=== PATIENT | female | born 1970 | race Hispanic/Latino ===

== ENCOUNTER → 2019-10-08 | Outpatient (CLI) | payer OTHER, SELFPAY ==
[~2019-10-08] MED LIST: FERR325T18 PO; HYDR-3713; IBUP-1022; ONDA4TAB6 PO; PROP10TA56; SUMA25TA3; TRAM50TA2 PO
--- NOTE | 2019-11-05 08:12 | REP ---
CHEST X-RAY: CLINICAL: Cough. TECHNIQUE: PA and lateral FINDINGS: Mediastinum and cardiac silhouette are normal. Lung sage are clear. No consolidation, effusion or pneumothorax. Skeletal structures are intact. IMPRESSION: Normal chest x-ray. No acute cardiopulmonary process. MTDD
== END ==
LOC: M LRY 16:42
PROVIDERS: ATTEND Physician Assistant
DX: R05 Cough (principal); R50.9 Fever, unspecified

== ENCOUNTER → 2019-10-16 | Outpatient (CLI) | payer OTHER ==
[2019-10-16 18:48] LABS: BASO # 0.1 10^3/uL (0.0-0.2); EOS # 0.2 10^3/uL (0.0-0.5); EOS % 2.6 % (0.0-3.0); HEMATOCRIT 29.1 % (36.0-47.0); HEMOGLOBIN 7.9 g/dl (12.0-15.5); LYMPH # 1.5 10^3/uL (1.5-5.0); LYMPH % 24.5 % (24.0-44.0); MEAN CORPUSCULAR HEMOGLOBIN 19.2 pg (27.0-33.0); MEAN CORPUSCULAR HGB CONC 27.1 g/dl (32.0-36.5); MEAN CORPUSCULAR VOLUME 70.8 fl (80.0-96.0); MONO # 0.5 10^3/uL (0.0-0.8); MONO % 7.4 % (0.0-5.0); NEUTROPHILS # 3.9 10^3/uL (1.5-8.5); NEUTROPHILS % 64.3 % (36.0-66.0); PLATELET COUNT, AUTOMATED 305 10^3/uL (150-450); RED BLOOD COUNT 4.11 10^6/uL (4.00-5.40); WHITE BLOOD COUNT 6.1 10^3/uL (4.0-10.0)
[2019-10-16 18:53] LABS: BLOOD UREA NITROGEN 13 MG/DL (7-18); CARBON DIOXIDE LEVEL 22 MEQ/L (21-32); CHLORIDE LEVEL 111 MEQ/L (98-107); CREATININE FOR GFR 0.93 MG/DL (0.55-1.30); GLOMERULAR FILTRATION RATE > 60.0 (>58); GLUCOSE, FASTING 97 MG/DL (70-100); POTASSIUM SERUM 4.5 MEQ/L (3.5-5.1); SODIUM LEVEL 137 MEQ/L (136-145)
[2019-10-18 14:13] LABS: EBV AB TO NUCLEAR ANTIGEN >600.0 U/mL (0.0-17.9); EBV VIRAL CAPSID AG IgG >600.0 U/mL (0.0-17.9); EBV VIRAL CAPSID AG IgM <36.0 U/mL (0.0-35.9)
== END ==
LOC: M WUC 14:25
PROVIDERS: ATTEND Physician Assistant Medical
DX: J02.9 Acute pharyngitis, unspecified (principal)

== ENCOUNTER → 2019-10-17 | Outpatient (REF) | payer OTHER | LOC: M LAB REF 13:15 | PROVIDERS: ATTEND Physician Assistant Medical | DX: R51 Headache (principal) ==

== ENCOUNTER 2019-10-28 14:13 | Observation (INO) | payer OTHER ==
[~2019-10-28] VITALS: Ht 149.9 cm; Wt 62.7 kg
[2019-10-28] VITALS (9 sets, daily range): BP systolic 125–147; BP diastolic 62–81
--- NOTE | 2019-10-28 15:38 | REPVR ---
PROCEDURE INFORMATION: Exam: XR Chest, 2 Views Exam date and time: 10/28/2019 3:27 PM Age: 49 years old Clinical indication: Shortness of breath; Additional info: SOB TECHNIQUE: Imaging protocol: XR of the chest Views: Frontal and lateral upright views. COMPARISON: CR CHEST 2 VIEW 10/08/2019 4:45 PM FINDINGS: Lungs: The lungs are clear bilaterally. The pulmonary vasculature is normal. Pleural space: No pleural effusion. No pneumothorax. Heart/Mediastinum: The heart is normal in size and contour. Mediastinum: Stable. Bones/joints: Stable. IMPRESSION: No acute cardiopulmonary abnormality identified. Electronically signed by: Darin Kebede On 10/28/2019 15:38:13 PM
[2019-10-28 15:47] LABS: BASO # 0.1 10^3/uL (0.0-0.2); BASO % 1.6 % (0.0-1.0); EOS # 0.2 10^3/uL (0.0-0.5); EOS % 3.1 % (0.0-3.0); HEMATOCRIT 26.6 % (36.0-47.0); HEMOGLOBIN 7.3 g/dl (12.0-15.5); LYMPH # 1.8 10^3/uL (1.5-5.0); LYMPH % 36.8 % (24.0-44.0); MEAN CORPUSCULAR HEMOGLOBIN 19.3 pg (27.0-33.0); MEAN CORPUSCULAR HGB CONC 27.4 g/dl (32.0-36.5); MEAN CORPUSCULAR VOLUME 70.4 fl (80.0-96.0); MONO # 0.4 10^3/uL (0.0-0.8); MONO % 8.6 % (0.0-5.0); NEUTROPHILS # 2.4 10^3/uL (1.5-8.5); NEUTROPHILS % 49.7 % (36.0-66.0); PLATELET COUNT, AUTOMATED 248 10^3/uL (150-450); RED BLOOD COUNT 3.78 10^6/uL (4.00-5.40); WHITE BLOOD COUNT 4.9 10^3/uL (4.0-10.0)
[2019-10-28 15:57] LABS: INR 1.06; PROTHROMBIN TIME 14.1 SECONDS (12.5-14.3)
[2019-10-28 16:15] LABS: ALBUMIN 3.9 GM/DL (3.2-5.2); ALT/SGPT 19 U/L (12-78); BILIRUBIN,DIRECT < 0.1 MG/DL (0.0-0.2); BILIRUBIN,TOTAL 0.2 MG/DL (0.2-1.0); BLOOD UREA NITROGEN 9 MG/DL (7-18); CALCIUM LEVEL 8.6 MG/DL (8.5-10.1); CARBON DIOXIDE LEVEL 23 MEQ/L (21-32); CHLORIDE LEVEL 111 MEQ/L (98-107); CK-MB VALUE MASS 1.6 NG/ML (<3.6); CPK CREATINE PHOSPHOKINASE 128 U/L (26-192); CREATININE FOR GFR 0.84 MG/DL (0.55-1.30); FREE T4 0.79 NG/DL (0.76-1.46); GLOMERULAR FILTRATION RATE > 60.0 (>58); GLUCOSE, FASTING 99 MG/DL (70-100); MB/CK RELATIVE INDEX 1.25 (< OR =4); POTASSIUM SERUM 4.2 MEQ/L (3.5-5.1); SODIUM LEVEL 137 MEQ/L (136-145); TOTAL PROTEIN 7.6 GM/DL (6.4-8.2); TROPONIN I < 0.02 NG/ML (< 0.10)
--- NOTE | 2019-10-28 17:30 | HPEPDOC ---
General Date of Admission 10/28/19 Date of Service: Oct 28, 2019 Chief Complaint The patient is a 49-year-old female admitted with a reason for visit of Abnormal Labs. Source: Patient Exam Limitations: No limitations Timing/Duration: Week(s) Severity: Moderate History of Present Illness Patient is 49 years old female with past history of dysmenorrhea, chronic iron deficient anemia presented to the hospital with dizziness and lightheadedness. Patient stated that for past few weeks she has been having lightheadedness and dizziness. For past few days patient developed shortness of breath and fatigue. In ER patient was found to have hemoglobin 7.3, chest x-ray showed no acute cardiopulmonary abnormalities. Of note patient stated that she cannot tolerate prescribed iron pills and she didn't take it. Patient has a long history of dysmenorrhea with heavy bleeding. Stool for occult blood was done ER and was negative. Home Medications Miscellaneous Medications Sumatriptan Succinate (Sumatriptan Succinate) 25 Mg Tablet, (Reported) Allergies Coded Allergies: No Known Allergies (Unverified , 10/28/19) Past Medical History Medical History Dysmenorrhea, anxiety Family History I personally reviewed family history and found not pertinent Social History * Smoker: current smoker Alcohol: occationally Drugs: denies A-FIB/CHADSVASC A-FIB History Current/History of A-Fib/PAF?: No Current PO Anticoag Therapy: No Review of Systems Constitutional: Reports: Malaise; Denies: Chills, Fever Eyes: Denies: Pain, Vision change ENT: Denies: Head Aches Skin: Denies: Rash, Lesions Pulmonary: Reports: Dyspnea Cardiovascular: Denies: Chest Pain Gastrointestinal: Denies: Nausea, Vomiting Genitourinary: Denies: Dysuria Hematologic: Denies: Bruising Endocrine: Denies: Polydipsia, Polyphagia Musculoskeletal: Denies: Neck Pain Neurological: Denies: Weakness, Numbness Psych: Reports: Mood Normal Physical Examination General Exam: Positive: Alert, Cooperative Eye Exam: Positive: PERRLA ENT Exam: Positive: Atraumatic Neck Exam: Positive: Supple; Negative: JVD Chest Exam: Positive: Clear to auscultation Heart Exam: Positive: Rate Normal Telemetry: Positive: No significant arrhythmia Abdomen Exam: Positive: Normal bowel sounds Extremity Exam: Negative: Clubbing, Cyanosis Skin Exam: Positive: Nl turgor and temperature Neuro Exam: Positive: Strength at 5/5 X4 ext, Cranial Nerves 3-12 NL Psych Exam: Positive: Mental status NL, Oriented x 3 Vital Signs hr 80 Laboratory Data Labs 24H Laboratory Tests 2 10/28/19 15:33: Immature Granulocyte % (Auto) 0.2, Neutrophils (%) (Auto) 49.7, Lymphocytes (%) (Auto) 36.8, Monocytes (%) (Auto) 8.6H, Eosinophils (%) (Auto) 3.1H, Basophils (%) (Auto) 1.6H, Neutrophils # (Auto) 2.4, Lymphocytes # (Auto) 1.8, Monocytes # (Auto) 0.4, Eosinophils # (Auto) 0.2, Basophils # (Auto) 0.1, Nucleated Red Blood Cells % (auto) 0.0, Prothrombin Time 14.1H, Prothromb Time International Ratio 1.06, Activated Partial Thromboplast Time 27.0, Anion Gap 3L, Glomerular Filtration Rate > 60.0, Calcium Level 8.6, Total Bilirubin 0.2, Direct Bilirubin < 0.1, Aspartate Amino Transf (AST/SGOT) 19, Alanine Aminotransferase (ALT/SGPT) 19, Alkaline Phosphatase 76, Total Creatine Kinase 128, Creatine Kinase MB 1.6, Creatine Kinase MB Relative Index 1.25, Troponin I < 0.02, Total Protein 7.6, Albumin 3.9, Albumin/Globulin Ratio 1.1L, Thyroid Stimulating Hormone (TSH) 3.960H, Free Thyroxine 0.79 CBC/BMP Laboratory Tests 10/28/19 15:33 Assessment/Plan Patient is 49 years old female with past history of dysmenorrhea, chronic iron deficient anemia presented to the hospital with dizziness and lightheadedness. Patient stated that for past few weeks she has been having lightheadedness and dizziness. For past few days patient developed shortness of breath and fatigue. In ER patient was found to have hemoglobin 7.3, chest x-ray showed no acute cardiopulmonary abnormalities. Of note patient stated that she cannot tolerate prescribed iron pills and she didn't take it. Patient has a long history of d ysmenorrhea with heavy bleeding. Stool for occult blood was done ER and was negative. Problems (1) Acute anemia Status: Acute Problem Text: Most likely secondary to dysmenorrhea 2 units of blood Telemetry Follow-up with ROOM SERVER and electricity trading analyst in the outpatient settings Stool for occult blood H&H every 6 hours Plan / VTE VTE Prophylaxis Ordered?: No VTE Exclusion Pharmacological: Active Bleeding STEPHANE MARIE DO Oct 28, 2019 17:30
[2019-10-28 18:50] LABS: IRON (FE) 11 UG/DL (50-170); PERCENT SATURATION 2.3 % (13.2-45.0); TOTAL IRON BINDING CAPACITY 483 UG/DL (250-450)
--- NOTE | 2019-10-28 20:33 | ECGEPIP ---
[facility] - ED Test Date: 2019-10-28 Pat Name: ANTONIO ALEXANDRA Department: Room: - Gender: Female Feller Hand: noelle norwood : 1970 Requested By: MARIANO Moon Order Number: [id number] Reading MD: Yazmin Lomax Measurements Intervals [place] Rate: 70 P: 10 AL: 128 QRS: 15 QRSD: 93 T: 51 QT: 418 QTc: 452 Interpretive Statements SINUS RHYTHM NO PRIOR Electronically Signed on 10-28-2019 20:33:29 EDT by Yazmin Lomax
[2019-10-28] MEDS ORDERED: HEPARIN SOD (PORCINE) 5000UNITS/ML 1ML VIAL/SYRINGE SC SCH (21:00)
[2019-10-28] MEDS: ACETAMINOPHEN TAB 650MG DOSE (2X325MG) PO PRN (22:47)
[2019-10-28 23:51] LABS: HEMATOCRIT 34.3 % (36.0-47.0)
[2019-10-28 23:52] LABS: HEMOGLOBIN 10.2 g/dl (12.0-15.5)
[2019-10-29] MEDS: ACETAMINOPHEN TAB 650MG DOSE (2X325MG) PO PRN ×3 (04:55→22:39)
[2019-10-29 06:00] VITALS: BP 138/76
[2019-10-29 06:03] LABS: HEMATOCRIT 34.2 % (36.0-47.0); HEMOGLOBIN 10.1 g/dl (12.0-15.5); MEAN CORPUSCULAR HEMOGLOBIN 22.1 pg (27.0-33.0); MEAN CORPUSCULAR HGB CONC 29.5 g/dl (32.0-36.5); PLATELET COUNT, AUTOMATED 207 10^3/uL (150-450); RED BLOOD COUNT 4.56 10^6/uL (4.00-5.40); WHITE BLOOD COUNT 5.2 10^3/uL (4.0-10.0)
[2019-10-29 06:23] LABS: BLOOD UREA NITROGEN 10 MG/DL (7-18); CARBON DIOXIDE LEVEL 22 MEQ/L (21-32); CHLORIDE LEVEL 112 MEQ/L (98-107); CREATININE FOR GFR 0.94 MG/DL (0.55-1.30); GLOMERULAR FILTRATION RATE > 60.0 (>58); GLUCOSE, FASTING 99 MG/DL (70-100); MAGNESIUM LEVEL 1.9 MG/DL (1.8-2.4); POTASSIUM SERUM 4.1 MEQ/L (3.5-5.1); SODIUM LEVEL 140 MEQ/L (136-145)
[2019-10-29 08:36] LABS: HEPATITIS C VIRUS ABY INDEX 0.1 INDEX (<0.8)
[2019-10-29] MEDS: FERROUS SULFATE 325MG TAB PO SCH (09:00)
[2019-10-29 09:11] LABS: HEMOGLOBIN 9.9 g/dl (12.0-15.5); MEAN CORPUSCULAR HEMOGLOBIN 22.4 pg (27.0-33.0); MEAN CORPUSCULAR VOLUME 74.8 fl (80.0-96.0); PLATELET COUNT, AUTOMATED 211 10^3/uL (150-450); RED BLOOD COUNT 4.41 10^6/uL (4.00-5.40); WHITE BLOOD COUNT 4.6 10^3/uL (4.0-10.0)
[2019-10-29 14:00] VITALS: BP 143/73
[2019-10-29 14:24] LABS: HEMATOCRIT 31.4 % (36.0-47.0); HEMOGLOBIN 9.4 g/dl (12.0-15.5); MEAN CORPUSCULAR HEMOGLOBIN 22.2 pg (27.0-33.0); MEAN CORPUSCULAR HGB CONC 29.9 g/dl (32.0-36.5); MEAN CORPUSCULAR VOLUME 74.1 fl (80.0-96.0); PLATELET COUNT, AUTOMATED 204 10^3/uL (150-450); RED BLOOD COUNT 4.24 10^6/uL (4.00-5.40)
--- NOTE | 2019-10-29 14:37 | IPNPDOC ---
Text Note Date of Service The patient was seen on 10/29/19. NOTE Subjective Patient seen and examined today. No overnight events. Uterine bleeding almost stopped now. Feeling better overall. denies SOB or CP. Objective Constitutional: Awake and alert, in no apparent distress ENT: Sclera are clear. Mucosa is moist. Respiratory: Lungs CTA bilaterally. No respiratory distress. No use of accessory muscles. Cardiovascular: RRR S1 and S2 are normal, no murmur Gastrointestinal: Abdomen is soft, non distended, non tender, BS present. Musculoskeletal: No edema. No joint deformities. RUE 5/5, LUE 5/5, BLE 5/5 Neurologic: No focal neurological deficit. Mental Status: A&O x3, normal affect Skin: Warm, dry A/P Patient is 49 years old female with past history of dysmenorrhea, chronic iron deficient anemia presented to the hospital with dizziness and lightheadedness. Patient stated that for past few weeks she has been having lightheadedness and dizziness. For past few days patient developed shortness of breath and fatigue. In ER patient was found to have hemoglobin 7.3, chest x-ray showed no acute cardiopulmonary abnormalities. Of note patient stated that she cannot tolerate prescribed iron pills and she didn't take it. Patient has a long history of dysmenorrhea with heavy bleeding. Stool for occult blood was done ER and was negative. # microcytic anemia: - Likely 2/2 dysmenorrhea - Iron PO on d/c - OP follow up with NUTRIENT MANAGEMENT SPECIALIST and GI. - s/p 2U pRBC. Hgb stable 10.1 this AM. 1 more HH prior to DC. - No active bleeding - FOBT ordered. No melena/hematochezia. - If hgb remains stable, can be DC tomorrow with OP NUTRIENT MANAGEMENT SPECIALIST f/u VS,Fishbone, I+O VS, Fishbone, I+O Laboratory Tests 10/28/19 15:33 10/28/19 23:43 10/29/19 05:46 Vital Signs Date Time Temp Pulse Resp B/P (MAP) Pulse Ox O2 Delivery O2 Flow Rate FiO2 10/29/19 06:00 98.4 61 18 138/76 (96) 100 Room Air I&O- Last 24 Hours up to 6 AM 10/29/19 06:00 Intake Total 1880 ml Output Total 430 ml Balance 1450 ml ELIESER SELF MD Oct 29, 2019 08:21
[2019-10-29 20:16] LABS: HEMATOCRIT 34.5 % (36.0-47.0); HEMOGLOBIN 10.2 g/dl (12.0-15.5); MEAN CORPUSCULAR HGB CONC 29.6 g/dl (32.0-36.5); MEAN CORPUSCULAR VOLUME 74.5 fl (80.0-96.0); PLATELET COUNT, AUTOMATED 217 10^3/uL (150-450); RED BLOOD COUNT 4.63 10^6/uL (4.00-5.40); WHITE BLOOD COUNT 4.5 10^3/uL (4.0-10.0)
[2019-10-29 22:00] VITALS: BP 143/63
[2019-10-30 06:00] VITALS: BP 123/72
[2019-10-30 06:18] LABS: HEMATOCRIT 32.5 % (36.0-47.0); HEMOGLOBIN 9.6 g/dl (12.0-15.5); MEAN CORPUSCULAR HEMOGLOBIN 21.9 pg (27.0-33.0); MEAN CORPUSCULAR HGB CONC 29.5 g/dl (32.0-36.5); MEAN CORPUSCULAR VOLUME 74.2 fl (80.0-96.0); PLATELET COUNT, AUTOMATED 208 10^3/uL (150-450); RED BLOOD COUNT 4.38 10^6/uL (4.00-5.40); WHITE BLOOD COUNT 5.1 10^3/uL (4.0-10.0)
[2019-10-30] MEDS ORDERED: FERR325T18 PO (08:15)
[2019-10-30] MEDS: FERROUS SULFATE 325MG TAB PO SCH (08:52)
[2019-10-30] MEDS: ACETAMINOPHEN TAB 650MG DOSE (2X325MG) PO PRN (08:53)
--- NOTE | 2019-10-30 12:39 | IPNPDOC ---
Text Note Date of Service The patient was seen on 10/30/19. NOTE Subjective Patient seen and examined today. No overnight events. vaginal bleeding almost stopped now. Feeling better overall. denies SOB or CP. Objective Constitutional: Awake and alert, in no apparent distress ENT: Sclera are clear. Mucosa is moist. Respiratory: Lungs CTA bilaterally. No respiratory distress. No use of accessory muscles. Cardiovascular: RRR S1 and S2 are normal, no murmur Gastrointestinal: Abdomen is soft, non distended, non tender, BS present. Musculoskeletal: No edema. No joint deformities. RUE 5/5, LUE 5/5, BLE 5/5 Neurologic: No focal neurological deficit. Mental Status: A&O x3, normal affect Skin: Warm, dry A/P Patient is 49 years old female with past history of dysmenorrhea, chronic iron deficient anemia presented to the hospital with dizziness and lightheadedness. Patient stated that for past few weeks she has been having lightheadedness and dizziness. For past few days patient developed shortness of breath and fatigue. In ER patient was found to have hemoglobin 7.3, chest x-ray showed no acute cardiopulmonary abnormalities. Of note patient stated that she cannot tolerate prescribed iron pills and she didn't take it. Patient has a long history of dysmenorrhea with heavy bleeding. Stool for occult blood was done ER and was negative. # microcytic anemia: - Likely 2/2 dysmenorrhea - Iron PO on DC - s/p 2U pRBC. Hgb stable this AM. HH trended. - No active bleeding anywhere other than light vaginal spotting currently - Stool occult negative in ED - DC to home today with OP PCP and UTILITY TECH followup. A Edda Hospitalist Barbie PATEL, I+O Barbie PATEL I+O Laboratory Tests 10/29/19 08:48 10/29/19 14:09 10/29/19 20:05 10/30/19 05:58 Vital Signs Date Time Temp Pulse Resp B/P (MAP) Pulse Ox O2 Delivery O2 Flow Rate FiO2 10/30/19 06:00 98.1 56 17 123/72 (89) 99 Room Air I&O- Last 24 Hours up to 6 AM 10/30/19 06:00 Intake Total 1855 ml Output Total 300 ml Balance 1555 ml ELIESER SELF MD Oct 30, 2019 08:19
[2019-11-21] MEDS ORDERED: SUMA25TA3 (11:40)
== END 2019-10-30 13:01 | disposition home or self-care (01) ==
LOC: M ED 14:13 → M ED INP 14:14 → M MSPAV 18:43
PROVIDERS: ADMIT Internal Medicine; ATTEND Family Medicine
DX: D62 Acute posthemorrhagic anemia (principal); N92.1 Excessive and frequent menstruation with irregular cycle; R42 Dizziness and giddiness; D50.9 Iron deficiency anemia, unspecified; R06.02 Shortness of breath; F41.9 Anxiety disorder, unspecified; F17.218 Nicotine dependence, cigarettes, with other nicotine-induced disorders; R53.83 Other fatigue; Z79.899 Other long term (current) drug therapy
CPT/HCPCS: 36415; 36430; 71046; 80048; 80076; 82550; 82553; 83550; 83735; 84439; 84443; 84484; 85014; 85018; 85025; 85027; 85610; 85730; 86803; 86850; 86900; 86901; 86920; 93005; 93041; 94760; 97161; 97165; 99285; P9016

== ENCOUNTER → 2019-10-31 | Outpatient (CLI) | payer OTHER ==
--- NOTE | 2019-11-07 07:08 | REP ---
PELVIC ULTRASOUND CLINICAL: Leiomyomatous changes and abnormal menstrual cycles. TECHNIQUE: Transabdominal pelvic ultrasound followed by transvaginal examination for better evaluation of the endometrium and adnexa with color Doppler evaluation of the ovaries. FINDINGS: Bladder is normal and measures 4.2 x 3.5 x 2.9 cm. A heterogeneous anteverted myomatous uterus is identified measuring 11.9 x 7.1 x 10.3 cm. The endometrial complex is thickened to 18 mm. Multiple complex fibroids are appreciated including at least three that appear submucosal. The largest submucosal posterior fibroid measures 4.5 x 3.7 x 4.5 cm. An endometrial lesion versus a fundal submucosal fibroid is also identified measuring 1.4 x 1.1 x 1.1 cm. Smaller scattered fibroids are noted. The bilateral ovaries are limited in evaluation due to overlying bowel gas on both transabdominal and transvaginal imaging. Right ovary measures 3.9 x 3.8 x 3.0 cm and demonstrates vascularity without torsion. The left ovary measures 3.8 x 2.6 x 3.2 cm and demonstrates vascularity without torsion. No pelvic fluid or adnexal mass lesion. IMPRESSION: Enlarged myomatous uterus including multiple submucosal fibroids, as well as a subserosal fibroid measuring 3.3 x 2.6 x 2.5 cm. MTDD
== END ==
LOC: M RAD 11:56
PROVIDERS: ATTEND Obstetrics & Gynecology
DX: D25.1 Intramural leiomyoma of uterus (principal); N92.1 Excessive and frequent menstruation with irregular cycle; D25.0 Submucous leiomyoma of uterus; D25.2 Subserosal leiomyoma of uterus

== ENCOUNTER → 2019-11-23 | Outpatient (CLI) | payer OTHER | LOC: M LABSMTC 08:40 | PROVIDERS: ATTEND Anesthesiology | DX: Z01.812 Encounter for preprocedural laboratory examination (principal); Z20.828 Contact with and (suspected) exposure to other viral communicable diseases | CPT/HCPCS: C9803; U0003 ==

== ENCOUNTER 2019-11-28 06:02 | Day surgery (SDC) | payer OTHER ==
[~2019-11-28] VITALS: Ht 149.9 cm; Wt 63.7 kg
[~2019-11-28 06:02] MED LIST changes: -HYDR-3713; -IBUP-1022; -ONDA4TAB6 PO; -PROP10TA56; -TRAM50TA2 PO
[2019-11-28 06:39] LABS: HEMATOCRIT 31.3 % (36.0-47.0); HEMOGLOBIN 9.4 g/dl (12.0-15.5); MEAN CORPUSCULAR VOLUME 76.5 fl (80.0-96.0); PLATELET COUNT, AUTOMATED 296 10^3/uL (150-450); RED BLOOD COUNT 4.09 10^6/uL (4.00-5.40); WHITE BLOOD COUNT 7.6 10^3/uL (4.0-10.0)
[2019-11-28] MEDS ORDERED: LR 1,000 ML IV ONE (07:00)
[2019-11-28] MEDS ORDERED: ceFAZolin SOD 2 GM in IV 1 EA IV ONE (07:00)
[2019-11-28] MEDS ORDERED: METHYLENE BLUE 0.5% (5MG/ML) 10 ML AMP (PROVAYBLUE) As Ordered ONE (07:11)
[2019-11-28] MEDS ORDERED: SCOPOLAMINE 1MG TRANSDERMAL PATCH As Ordered ONE (07:13)
[2019-11-28] MEDS ORDERED: LIDOCAINE 2% 100MG/5ML SDV (FOR ANES.) As Ordered ONE (07:14)
[2019-11-28] MEDS ORDERED: fentaNYL 250 MCG/5 ML INJECTION (J3010) As Ordered ONE (07:14)
[2019-11-28] MEDS ORDERED: propofoL 200 MG/20 ML VIAL As Ordered ONE (07:14)
[2019-11-28] MEDS ORDERED: ROCURONIUM BROMIDE 50 MG/5 ML VIAL As Ordered ONE ×2 (07:14→08:46)
[2019-11-28] MEDS ORDERED: MIDAZOLAM INJ 2MG/2ML VIAL (J2250 PER 1MG) As Ordered ONE (07:15)
[2019-11-28] MEDS ORDERED: SCOPOLAMINE 1MG TRANSDERMAL PATCH TOP ONE (07:30)
[2019-11-28] MEDS ORDERED: LACRILUBE (AKWA TEARS) OPHTH OINT 3.5 GM As Ordered ONE (07:55)
[2019-11-28] MEDS ORDERED: ALBUTEROL 6.7GM INHALER **FOR ANES. CART/OMNICELL ONLY As Ordered ONE (08:11)
[2019-11-28] MEDS ORDERED: ePHEDrine SULFATE 25 MG/5 ML(5MG/ML) SYRINGE As Ordered ONE (08:33)
[2019-11-28] MEDS ORDERED: dexameTHASONE 4 MG/ML 1ML VIAL (J1100 PER 1MG) As Ordered ONE (08:36)
[2019-11-28] MEDS ORDERED: KETOROLAC 60MG 2ML VIAL As Ordered ONE (08:36)
[2019-11-28] MEDS ORDERED: ONDANSETRON 4MG/2ML VIAL As Ordered ONE ×3 (08:36→10:52)
[2019-11-28] MEDS ORDERED: SUGAMMADEX SODIUM 500 MG/5 ML VIAL (BRIDION) As Ordered ONE (08:38)
[2019-11-28] MEDS ORDERED: ACETAMINOPHEN 1000MG 100ML IV BTL (OFIRMEV) (J0131 PER 10MG) As Ordered ONE (08:44)
[2019-11-28] MEDS ORDERED: METOCLOPRAMIDE INJ 10MG/2ML VIAL (J2765 PER 1) As Ordered ONE (09:55)
[2019-11-28] MEDS ORDERED: HYDROmorphone HCL 2 MG/ML 1ML VIAL (J1170) As Ordered ONE (09:58)
[2019-11-28] MEDS ORDERED: fentaNYL 100 MCG/2 ML INJECTION (J3010) As Ordered ONE (10:50)
[2019-11-28] MEDS: fentaNYL 100 MCG/2 ML INJECTION (J3010) IV PRN ×4 (10:55→11:16)
[2019-11-28] MEDS ORDERED: MORPHINE 1MG/ML IN 0.9% NACL 100ML IV BAG As Ordered ONE (10:55)
[2019-11-28] MEDS ORDERED: ONDANSETRON 4MG/2ML VIAL IV PRN (11:00)
[2019-11-28] MEDS ORDERED: LR 1,000 ML IV SCH (11:00)
[2019-11-28] MEDS ORDERED: MEPERIDINE INJ 25 MG/ML VIAL (J2175) IV PRN (11:00)
[2019-11-28] MEDS ORDERED: oxyCODONE 5MG TAB PO PRN (11:00)
[2019-11-28] MEDS ORDERED: METOCLOPRAMIDE INJ 10MG/2ML VIAL (J2765 PER 1) IV PRN (11:00)
[2019-11-28] MEDS ORDERED: IBUPROFEN 600MG TAB PO PRN (11:15)
[2019-11-28] MEDS ORDERED: diphenhydrAMINE 50MG/ML VIAL (J1200) IV PRN (11:15)
[2019-11-28] MEDS ORDERED: NALOXONE INJ 0.4MG/1ML VIAL (J2310 PER 1MG) IV PRN (11:15)
[2019-11-28] MEDS ORDERED: NALBUPHINE HCL 10 MG/ML AMP (J2300) IV PRN (11:15)
[2019-11-28] MEDS ORDERED: EPIDURAL/PCA KEYS XX PRN (11:15)
[2019-11-28] MEDS ORDERED: NS 1,000 ML IV SCH (11:15)
[2019-11-28] MEDS ORDERED: MORPHINE 1MG/ML IN 0.9% NACL 100ML IV BAG IV PRN (11:15)
[2019-11-28] MEDS: LR 1,000 ML IV SCH ×2 (12:48→23:51)
[2019-11-28 13:00] VITALS: BP 109/70
[2019-11-28 13:30] VITALS: BP 110/69
--- NOTE | 2019-11-28 13:46 | RO ---
DATE OF OPERATION: 11/28/2019 PREOPERATIVE DIAGNOSIS/INDICATION FOR SURGERY: Pain, bleeding, fibroids. POSTOPERATIVE DIAGNOSIS: Pain, bleeding, fibroids, right hydroureter which was present before we even started cutting anything. PROCEDURE: Robotic-assisted hysterectomy, bilateral salpingo-oophorectomy of uterus over 250 gm (uterus was 354 gm weighed in the OR); cystourethroscopy done because of the right hydroureter abnormal finding which changed the plan. SURGEON: Linn Leroy MD [employer]CRA[employer] INSTALLER: Mariela Skelton ANESTHESIA: General endotracheal anesthesia. BRIEF DESCRIPTION OF PROCEDURE AND FINDINGS: Heidi was brought to the operating room where sufficient general endotracheal anesthesia was induced. She was prepped, draped and positioned in the usual sterile fashion with a Miranda with the ability to back fill placed and the uterine manipulator placed after the uterus was sounded to 14. We secured the manipulator in place with sutures as is typical in the robotic cases. Attention was turned to the umbilicus where transverse incision was made over her previous umbilical scar. Sharp and blunt dissection was continued to the level of the rectus fascia which was transversely incised, secured with #0 Vicryl retention sutures and peritoneum entered under direct visualization and Romie cannula placed, again under direct visualization. Attention was turned to the pelvis. With some Trendelenburg and photographs were taken of the enlarged fibroid uterus which is documented in the operative photos. There were also some minor adhesions but in addition prior to starting any work other than simple identification, right hydroureter was noted with tortuous course of the ureter, as it approached the uterine vasculature it turned back upon itself in almost [id number] curve, was of course also distended and expectation is that this is due to the fibroids themselves but of course this atypical finding resulted in us changing the plan and adding cystourethroscopy to make sure that ureter did well. We did take some photos at the end of the case that showed that actually once the uterus was out of the way the ureter had much straighter course. At this point of course we did not have that finding. There were also some minor adhesions of the intestine and some scarring from the patients previous surgery. She is missing the midportion of the left tube entirely, missing the fimbria on the right from pre this operative surgery. Two left-sided, one right-sided additional ports were placed and the robot was docked. The patient was in fairly steep Trendelenburg position to facilitate access to the pelvis and then working from the console we freed the adhesions of the intestine near the left infundibulopelvic ligament, found the fimbria curled back beyond this under those adhesions although the midportion of that tube was of course absent. We freed up the fimbria, kept it with the ovary and after using just cold dissection with the scissors to free the bowel away from the field of this dissection we were able to readily see that the ureter on the left side was also very close here but we were able after freeing those adhesions to get the infundibulopelvic ligament away and safely use bipolar cautery to cauterize and then carefully transect the infundibulopelvic ligament, working through the broad ligament toward the round. We carefully freed the dissection. There were some additional vascular supply over typical consistent with fibroids but this additional recruited supply was readily controlled with just careful but somewhat tedious dissection. We were thus able to keep the field of dissection as far away from that ureter as possible while still taking the tissues that needed to be excised. We then continued that dissection through the broad, back toward the uterus and then toward the round and then were able to also cauterize and transect the round ligament and then bring down the anterior leaflet of the broad and come with cold scissor dissection across the front of the uterus. We back-filled the bladder to confirm its location using the Miranda and then turned our attention to the patients right side where that ureter was so much closer to the uterus itself. Initially we had some similar adhesions to take down and brought down the peritoneum of the broad ligament there to get that ureter more medial and away from the infundibulopelvic ligament on the right side as well. We then carefully cauterized this, transected it and worked our way through the broad ligament toward the round again being careful to bring down the peritoneal layer and let that ureter fall away. Again, it was larger and more tortuous than is typical which is very likely simply a result of the fibroid uterus itself. Having freed the ovary and carefully transected the round ligament, came down that posteriorly of the broad and worked our way superficially just over the insertion of the uterocervical ligament on the right side so that we could stay away from that ureter again. We had completed the dissection of the bladder flap anteriorly and went ahead and made sure that we did that posterior dissection to get the ureter as far away as possible before we cauterized any of those vessels. With that dissection done we went ahead and cauterized the uterines on the right and left them intact so that we could go back to the left side, did similar dissection freeing the tissues and dissecting on the cervix just above the insertion of the uterosacral so that we left those attachments in place and of course to stay as far away as possible from the ureters. There was quite a bit of additional recruited blood supply as would be expected with such a large fibroid uterus so we took our time to this dissection controlling that blood supply and then transecting it and then carefully making the anterior colpotomy, bringing that around to joint with the dissection that we had already done posteriorly using cold scissors along the right lateral side after we had controlled those vessels so that we were not using monopolar near that ureter at all. We then, having freed the cervix, delivered the uterus through the vagina. I had to scrub back in so that I could do that work because the uterus was quite large and there was some manipulation necessary to remove it. It was removed intact. Again, weight in the room 354 gm. I then went back to the robot and used V-Loc suture running stitch to close the cuff and re-support the angles and again taking care to avoid injury to the bladder or ureters. There was methylene blue given, no evidence of leakage of methylene blue into the pelvis or the abdomen. After closing the cuff and disconnecting the robot, we removed the patient from Trendelenburg, did cystourethroscopy and were able to see normal jets of urine from both ureters and absence of any evidence of injury to the bladder or urethra. Subsequently then closed those abdominal wounds, umbilical wound deep closure of #0 Vicryl and then 3-0 Vicryl at the skin of all four wounds. Dry, sterile dressings were applied. ESTIMATED BLOOD LOSS: About 50 mL. FLUID REPLACEMENT: Crystalloid. COMPLICATIONS: None. CONDITION AND DISPOSITION: Heidi tolerated the procedure well and was recovering in the recovery room in good condition. JADIEL
[2019-11-28 14:30] VITALS: BP 117/63
[2019-11-28 16:30] VITALS: BP 118/64
[2019-11-28 17:30] VITALS: BP 118/64
[2019-11-28] MEDS ORDERED: SUMAtriptan SUCCINATE 25 MG TAB PO PRN (18:30)
[2019-11-28 19:27] VITALS: BP 103/51
[2019-11-28] MEDS: ACETAMINOPHEN TAB 650MG DOSE (2X325MG) PO PRN ×2 (19:40→23:52)
[2019-11-29 00:56] VITALS: BP 115/56
[2019-11-29] MEDS: LR 1,000 ML IV SCH (03:15)
[2019-11-29] MEDS ORDERED: NORCO, ANEXSIA 5/325MG TABLET (HYDROcodone/ACETAMINOPHEN) PO PRN (06:00)
[2019-11-29 06:15] LABS: HEMOGLOBIN 8.2 g/dl (12.0-15.5); MEAN CORPUSCULAR HEMOGLOBIN 23.6 pg (27.0-33.0); MEAN CORPUSCULAR HGB CONC 30.4 g/dl (32.0-36.5); MEAN CORPUSCULAR VOLUME 77.6 fl (80.0-96.0); PLATELET COUNT, AUTOMATED 259 10^3/uL (150-450); RED BLOOD COUNT 3.48 10^6/uL (4.00-5.40); WHITE BLOOD COUNT 14.8 10^3/uL (4.0-10.0)
[2019-11-29 06:21] VITALS: BP 119/58
== END 2019-11-29 10:30 | disposition home or self-care (01) ==
LOC: M SDC 06:02 → M MS5PR 12:15 → M SDC 11-29 10:30
PROVIDERS: ATTEND Obstetrics & Gynecology
DX: R10.2 Pelvic and perineal pain (principal); N93.9 Abnormal uterine and vaginal bleeding, unspecified; D25.9 Leiomyoma of uterus, unspecified; D64.9 Anemia, unspecified; G43.909 Migraine, unspecified, not intractable, without status migrainosus; F41.9 Anxiety disorder, unspecified; F17.218 Nicotine dependence, cigarettes, with other nicotine-induced disorders; Z79.899 Other long term (current) drug therapy
CPT/HCPCS: 36415; 58573; 81025; 85027; 86850; 86900; 86901; 88307; J0131; J0690; J1100; J1170; J1885; J2250; J2405; J2765; J3010; Q9968; S2900

== ENCOUNTER 2019-12-04 20:05 | Emergency (ER) | payer OTHER ==
[~2019-12-04] VITALS: Ht 149.9 cm; Wt 62.7 kg
[~2019-12-04 20:05] MED LIST changes: -HYDR-3713; -IBUP-1022; -ONDA4TAB6 PO; -PROP10TA56; -TRAM50TA2 PO
[2019-12-04] MEDS ORDERED: HYDR-3713 (20:21)
[2019-12-04] MEDS ORDERED: IBUP-1022 (20:21)
[2019-12-04] MEDS ORDERED: PROP10TA56 (20:21)
[2019-12-04] MEDS ORDERED: NS 1,000 ML IV ONE (20:45)
[2019-12-04] MEDS ORDERED: ONDANSETRON 4MG/2ML VIAL IV ONE (20:45)
[2019-12-04] MEDS ORDERED: traMADol 50 MG TAB PO ONE (20:45)
[2019-12-04 21:08] LABS: BASO % 0.5 % (0.0-1.0); EOS # 0.3 10^3/uL (0.0-0.5); EOS % 3.8 % (0.0-3.0); HEMOGLOBIN 8.6 g/dl (12.0-15.5); LYMPH # 1.6 10^3/uL (1.5-5.0); LYMPH % 22.1 % (24.0-44.0); MEAN CORPUSCULAR HEMOGLOBIN 22.9 pg (27.0-33.0); MEAN CORPUSCULAR HGB CONC 29.7 g/dl (32.0-36.5); MEAN CORPUSCULAR VOLUME 77.1 fl (80.0-96.0); MONO # 0.7 10^3/uL (0.0-0.8); MONO % 9.2 % (0.0-5.0); NEUTROPHILS # 4.7 10^3/uL (1.5-8.5); NEUTROPHILS % 64.1 % (36.0-66.0); PLATELET COUNT, AUTOMATED 254 10^3/uL (150-450); RED BLOOD COUNT 3.76 10^6/uL (4.00-5.40); WHITE BLOOD COUNT 7.4 10^3/uL (4.0-10.0)
--- NOTE | 2019-12-04 21:18 | REPVR ---
PROCEDURE INFORMATION: Exam: XR Complete Acute Abdomen Series Exam date and time: 12/04/2019 9:04 PM Age: 49 years old Clinical indication: Other: Nv post hysterectomy; Additional info: Nv, post hysterectomy TECHNIQUE: Imaging protocol: XR complete acute abdomen series, including 2 or more views of the abdomen and a single view chest. COMPARISON: CR Chest, 2 view PA, Lat 10/28/2019 3:18 PM FINDINGS: Lungs: Normal. No consolidation. Pleural space: Normal. No pneumothorax. Heart/Mediastinum: Normal. No cardiomegaly. Gastrointestinal tract: Mild gas in the GI tract which is primarily colonic without abnormal dilatation. Mild stool is noted in the ascending and transverse colon. No abnormal air-fluid levels. Intraperitoneal space: No free air. Bones/joints: Normal. No acute fracture. Soft tissues: Normal. IMPRESSION: 1. Negative chest without change from 10/28/2019. 2. Negative abdomen with mild gas which is within normal limits. Electronically signed by: Jordy Luz On 12/04/2019 21:17:54 PM
[2019-12-04 21:36] LABS: ALBUMIN 3.5 GM/DL (3.2-5.2); BILIRUBIN,DIRECT 0.2 MG/DL (0.0-0.2); BILIRUBIN,TOTAL 0.6 MG/DL (0.2-1.0); TOTAL PROTEIN 6.8 GM/DL (6.4-8.2)
[2019-12-04] MEDS ORDERED: TRAM50TA2 PO (22:00)
[2019-12-04] MEDS ORDERED: ONDA4TAB6 PO (22:00)
[2019-12-04 22:11] VITALS: BP 161/73
== END 2019-12-04 22:20 | disposition home or self-care (01) ==
LOC: M ED 20:05
DX: G89.18 Other acute postprocedural pain (principal); R11.2 Nausea with vomiting, unspecified; D50.9 Iron deficiency anemia, unspecified; R51.9 Headache, unspecified; Z90.710 Acquired absence of both cervix and uterus; F17.200 Nicotine dependence, unspecified, uncomplicated; Z79.899 Other long term (current) drug therapy
CPT/HCPCS: 36415; 74021; 80047; 80076; 81001; 82728; 83550; 83690; 85025; 96361; 96375; 99283; J2405

== ENCOUNTER → 2019-12-04 | Outpatient (CLI) | payer OTHER ==
[~2019-12-04] MED LIST changes: +HYDR-3713; +IBUP-1022; +ONDA4TAB6 PO; +PROP10TA56; +TRAM50TA2 PO
[2019-12-04 19:55] LABS: BASO % 0.4 % (0.0-1.0); EOS # 0.2 10^3/uL (0.0-0.5); EOS % 3.1 % (0.0-3.0); HEMATOCRIT 29.7 % (36.0-47.0); HEMOGLOBIN 8.7 g/dl (12.0-15.5); LYMPH # 1.4 10^3/uL (1.5-5.0); LYMPH % 19.5 % (24.0-44.0); MEAN CORPUSCULAR HEMOGLOBIN 22.8 pg (27.0-33.0); MEAN CORPUSCULAR HGB CONC 29.3 g/dl (32.0-36.5); MONO # 0.7 10^3/uL (0.0-0.8); MONO % 9.4 % (0.0-5.0); NEUTROPHILS # 4.8 10^3/uL (1.5-8.5); NEUTROPHILS % 67.3 % (36.0-66.0); PLATELET COUNT, AUTOMATED 274 10^3/uL (150-450); RED BLOOD COUNT 3.81 10^6/uL (4.00-5.40); WHITE BLOOD COUNT 7.1 10^3/uL (4.0-10.0)
[2019-12-04 20:03] LABS: PERCENT SATURATION 5.3 % (13.2-45.0)
== END ==
LOC: M WUC 16:26
PROVIDERS: ATTEND Physician Assistant Medical
DX: D50.9 Iron deficiency anemia, unspecified (principal)

== ENCOUNTER → 2020-02-14 | Outpatient (REF) | payer OTHER ==
[~2020-02-14] MED LIST changes: +HYDR-3713; +IBUP-1022; +ONDA4TAB6 PO; +PROP10TA56; +TRAM50TA2 PO
[2020-02-14 17:24] LABS: APPEARANCE, URINE CLOUDY (CLEAR); BACTERIA, URINE AUTO NEGATIVE (NEGATIVE); BILIRUBIN, URINE AUTO NEGATIVE (NEGATIVE); BLOOD, URINE BLOOD 2+ (NEGATIVE); COLOR, URINE YELLOW (YELLOW); GLUCOSE, URINE (UA) AUTO NEGATIVE (NEGATIVE); KETONE, URINE AUTO NEGATIVE (NEGATIVE); LEUKOCYTE ESTERASE, URINE AUTO 1+ (NEGATIVE); NITRITE, URINE AUTO NEGATIVE (NEGATIVE); PROTEIN, URINE AUTO NEGATIVE (NEGATIVE); RBC, URINE AUTO 0 /HPF (0-3); SPECIFIC GRAVITY URINE AUTO 1.018 (1.002-1.035); SQUAMOUS EPITHELIAL CELL UR AU 20 /HPF (0-6); UROBILINOGEN, URINE AUTO 0.2 mg/dL (0.0-2.0); WBC, URINE AUTO 0 /HPF (0-3)
== END ==
LOC: M LAB REF 16:22
PROVIDERS: ATTEND Obstetrics & Gynecology
DX: R10.2 Pelvic and perineal pain (principal)

== ENCOUNTER 2020-06-11 15:20 | Emergency (ER) | payer OTHER ==
[~2020-06-11] VITALS: Ht 175.3 cm; Wt 62.0 kg
[2020-06-11] MEDS ORDERED: HYDR-3490 (15:35)
[2020-06-11] MEDS ORDERED: METH-1165 (15:35)
[2020-06-11] MEDS ORDERED: LOSA50TA88 (15:35)
[2020-06-11] MEDS ORDERED: DICL75TA (15:35)
[2020-06-11] MEDS ORDERED: KETOROLAC 60MG 2ML VIAL IM ONE (18:20)
[2020-06-11] MEDS ORDERED: LIDOCAINE 5% (LIDODERM) PATCH TD ONE (18:20)
[2020-06-11] MEDS ORDERED: ACETAMINOPHEN 500 MG TAB PO ONE (18:20)
--- NOTE | 2020-06-11 19:41 | REPVR ---
PROCEDURE INFORMATION: Exam: MR Lumbar Spine Without Contrast. Exam date and time: 06/11/2020 7:17 PM Age: 49 years old Clinical indication: Other: Saddle anesthesia, bilateral lumbar radiculopathy/pain TECHNIQUE: Imaging protocol: Multiplanar magnetic resonance images of the lumbar spine without contrast. COMPARISON: No relevant prior studies available. FINDINGS: Vertebrae: There is mild straightening of the normal lumbar lordosis. Spinal cord: The conus medullaris is normal appearance at the L2 level. Discs/Spinal canal/Neural foramina: The lower thoracic discs through L4-L5 are unremarkable. L5-S1: There is disc space narrowing and endplate degeneration with the central/left paracentral subligamentous disc herniation which indents the ventral aspect of the thecal sac does not appear to compress the exiting left S1 nerve root. Series 601, image 1 frame 5, series 401, image 1 frame 5-7. There is no spinal canal stenosis or neural foraminal narrowing. Soft tissues: Unremarkable. IMPRESSION: There is a central/left paracentral subligamentous disc herniation at the L5-S1 level which does not appear to affect the left S1 nerve root with patient in the supine position. There is no spinal canal stenosis or neural foraminal narrowing in the lumbar spine. Electronically signed by: Penelope Leone On 06/11/2020 19:40:49 PM
[2020-06-11] MEDS ORDERED: PRED20TA PO (20:12)
[2020-06-11] MEDS ORDERED: HYDR-3715 PO (20:12)
[2020-06-11] MEDS ORDERED: predniSONE 20 MG TAB PO ONE (20:15)
[2020-06-11] MEDS ORDERED: NORCO 5/325MG TABLET (BULK FOR ED) PO ONE (20:15)
[2020-06-11] MEDS ORDERED: diazePAM 10 MG TAB PO ONE (20:15)
[2020-06-11] MEDS ORDERED: NAPR-837 PO (20:15)
[2020-06-11 20:45] VITALS: BP 140/70
[2020-06-11] MEDS ORDERED: **NOTE PATIENT COMMENT** MISC XX SCH (21:00)
== END 2020-06-11 20:50 | disposition home or self-care (01) ==
LOC: M ED 15:20
DX: M51.26 Other intervertebral disc displacement, lumbar region (principal); M54.16 Radiculopathy, lumbar region; I10 Essential (primary) hypertension; Z87.442 Personal history of urinary calculi; R51.9 Headache, unspecified; F17.200 Nicotine dependence, unspecified, uncomplicated; Z79.899 Other long term (current) drug therapy
CPT/HCPCS: 72148; 96372; 99283; J1885

== ENCOUNTER → 2020-06-30 | Outpatient (CLI) | payer OTHER ==
[~2020-06-30] MED LIST changes: +DICL75TA; +HYDR-3490; +HYDR-3715 PO; +LOSA50TA88; +METH-1165; +NAPR-837 PO; +PRED20TA PO
[2020-06-30 16:42] LABS: BASO % 0.9 % (0.0-1.0); EOS # 0.1 10^3/uL (0.0-0.5); EOS % 3.1 % (0.0-3.0); HEMATOCRIT 41.5 % (36.0-47.0); HEMOGLOBIN 13.9 g/dl (12.0-15.5); LYMPH # 1.2 10^3/uL (1.5-5.0); MEAN CORPUSCULAR HGB CONC 33.5 g/dl (32.0-36.5); MEAN CORPUSCULAR VOLUME 98.6 fl (80.0-96.0); MONO # 0.3 10^3/uL (0.0-0.8); MONO % 6.9 % (2.0-8.0); NEUTROPHILS # 2.5 10^3/uL (1.5-8.5); NEUTROPHILS % 60.2 % (36.0-66.0); PLATELET COUNT, AUTOMATED 161 10^3/uL (150-450); RED BLOOD COUNT 4.21 10^6/uL (4.00-5.40); WHITE BLOOD COUNT 4.2 10^3/uL (4.0-10.0)
[2020-06-30 17:11] LABS: BLOOD UREA NITROGEN 10 MG/DL (7-18); CARBON DIOXIDE LEVEL 23 MEQ/L (21-32); CHLORIDE LEVEL 108 MEQ/L (98-107); CREATININE FOR GFR 0.68 MG/DL (0.55-1.30); GLOMERULAR FILTRATION RATE > 60.0 (>58); GLUCOSE, FASTING 121 MG/DL (70-100); POTASSIUM SERUM 3.7 MEQ/L (3.5-5.1); SODIUM LEVEL 141 MEQ/L (136-145)
== END ==
LOC: M WUC 14:24
PROVIDERS: ATTEND Physician Assistant Medical
DX: D50.9 Iron deficiency anemia, unspecified (principal); I10 Essential (primary) hypertension

== ENCOUNTER → 2020-07-16 | Outpatient (CLI) | payer OTHER ==
--- NOTE | 2020-07-17 23:57 | ECWPNPC ---
PATIENT NAME: ANTONIO ALEXANDRA : 1970 GENDER: FEMALE VISIT DATE: 07/16/2020 DISCHARGE DATE: 07/16/20 1422 VISIT LOCKED DATE TIME: PHYSICIAN: GABINO JONES RESOURCE: GABINO JONES REASON FOR APPOINTMENT 1. LOW BACK PAIN HISTORY OF PRESENT ILLNESS DEPRESSION SCREENING: PHQ-2 (2015 EDITION) LITTLE INTEREST OR PLEASURE IN DOING THINGS?NOT AT ALL FEELING DOWN, DEPRESSED, OR HOPELESS?NOT AT ALL TOTAL SCORE0 GENERAL: 50-YEAR-OLD FEMALE BEING REFERRED BY [facility], NEUROSURGERY TO EVALUATE LOW BACK PAIN WITH LEFT LEG RADICULAR SYMPTOMS. THIS IS A WORK RELATED INJURY. 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 SHE CONTINUED TO WORK AND A WEEK LATER PATIENT BEGAN TO HAVE LEFT LEG PAIN THAT WAS SEVERE. SHE WAS SEEN AT URGENT CARE AND TREATED WITH A MUSCLE RELAXANT WHICH WASN'T HELPFUL. SHE BEGAN TO HAVE THIS EVALUATED BY PRIMARY CARE AT [facility] IN MAY. SHE WAS SENT FOR PHYSICAL THERAPY BUT COULD NOT PARTICIPATE IN FIRST SESSION DUE TO SEVERE PAIN. IN JUNE SHE WAS SEEN AT THE ER FOR SEVERE PAIN WHERE AN MRI OF THE LS SPINE WAS DONE. THIS IS SHOWING HERNIATED DISC TO THE LEFT AT L5-S1. FINDING IT VERY DIFFICULT TO ATTEND TO PHYSICAL ACTIVITIES I.E. CLEANING HOUSE. SHE HAS RECOMMENDATIONS FROM PHYSICAL THERAPY TO NOT BE EMPLOYED AT THIS TIME. SHE IS GOING TO BE ATTENDING PHYSICAL THERAPY ON A REGULAR BASIS. DENIES BOWEL OR BLADDER INCONTINENCE. DENIES RECENT ILLNESS OR SUDDEN WEIGHT LOSS. - - -. FALL RISK SCREENING: SCREENING : NO FALLS REPORTED IN THE LAST YEAR . PAIN SCREENING: PATIENT HAS A COMPLAINT OF ACUTE OR CHRONIC PAIN :YES LOCATION OF PAIN:LOW BACK INTENSITY OF PAIN (SCALE OF 1 TO 10):10 WHAT DOES YOUR PAIN FEEL LIKE:CONTINOUS, TENDER, SHOOTING DURATION:CONTINOUS, CONSTANT, ALL DAY PAIN IS INCREASED BY:ACTIVITIES PAIN IS DECREASED BY:USE OF PAIN MEDICATIONS, OTHERS HEAT, LAYING DOWN NURSING NOTE: - - -. PAIN CENTER INTAKE QUESTIONS: DO YOU HAVE A HISTORY OF MRSA? :NO DO YOU TAKE A BLOOD THINNERS? :NO DO YOU HAVE ANY BLEEDING DISORDERS? :NO ANY NEW NUMBNESS OR WEAKNESS IN YOUR LEGS OR ARMS? :YES LEGS IS MORE WEAKNESS AND ARMS IS MORE NUMBESS ANY PACEMAKER,DEFIBRILLATOR, OR DORSAL COLUMN STIMULATOR? :NO DO YOU HAVE ANY RASHES OR OPEN SORES? :NO ARE YOU ALLERGIC TO IV DYE? :NO ARE YOU DIABETIC? :NO ANY NEW PROBLEMS WITH YOUR MEDICATIONS? :NO HAVE YOU RECEIVED A VACCINE IN THE PAST 30 DAYS? :NO 2ND : 05/24/2020 DO YOU PLAN TO RECEIVE A VACCINE IN THE NEXT 21 DAYS? :NO DO YOU NEED ANY PRESCRIPTION? :NO DO YOU TAKE ANY IMMUNOSUPPRESSIVE MEDICATIONS? :NO IS THERE A CHANCE YOU COULD BE ? :NO ARE YOU BREAST FEEDING? :NO CURRENT MEDICATIONS TAKING GABAPENTIN 100 MG CAPSULE 1 CAPSULE ORALLY TWICE A DAY TAKING LOSARTAN POTASSIUM 50 MG TABLET 1 TABLET ORALLY ONCE A DAY TAKING NAPROXEN SODIUM 550 MG TABLET 1 TABLET WITH FOOD OR MILK NEEDED ORALLY EVERY 12 HRS TAKING ROBAXIN-750 750MG TAB EVERY 6 HOURS TAKING SUMATRIPTAN SUCCINATE 50 MG TABLET 1 TABLET AT LEAST 2 HOURS BETWEEN DOSES NEEDED ORALLY TWICE A DAY TAKING TOPIRAMATE 25 MG TABLET 1 TABLET ORALLY ONCE A DAY NOT-TAKING HYDROCODONE-ACETAMINOPHEN 5-325 MG TABLET 1 TABLET NEEDED ORALLY EVERY 6 HRS NOT-TAKING METHOCARBAMOL 500 MG TABLET 1.5 TABLETS ORALLY EVERY 4 HRS MEDICATION LIST REVIEWED AND RECONCILED WITH THE PATIENT PAST MEDICAL HISTORY WORK INJURY ON 03/20/2020- WORKS AT [employer] BACK PAIN ANEMIA ANXIETY TRANSFUSION OF BLOOD PRODUCT LAST YEAR SEPT HEADACHE HIGH BLOOD PRESSURE ALLERGIES N.K.D.A. 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 2 SON(S) , 2 DAUGHTER(S) - HEALTHY. ARTHRITIS, CANCER, DEPRESSION, DIABETES, HYPOCHOLESTEREMIA, STROKE- RUNS IN THE FAMILY. SOCIAL HISTORY GENERAL: TOBACCO USE ARE YOU A:CURRENT SMOKER ARE YOU INTERESTED IN QUITTING?THINKING ABOUT QUITTING PREVIOUS QUIT ATTEMPTS?NO. COUNSELED THE PATIENT ON SMOKING CESSATION, EDUCATION [id number]/10/2021 HOW MANY CIGARETTES A DAY DO YOU SMOKE?5 OR LESS HOW SOON AFTER YOU WAKE UP DO YOU SMOKE YOUR FIRST CIGARETTE?AFTER 60 MIN HOW OFTEN DO YOU SMOKE CIGARETTES?EVERY DAY PATIENT COUNSELED ON THE DANGERS OF TOBACCO USE AND URGED TO QUIT:07/16/2020 LATEX QUESTIONNAIRE LATEX ALLERGY : HAVE YOU EVER DEVELOPED ANY TYPE OF REACTION AFTER HANDLING LATEX PRODUCTS SUCH RUBBER GLOVES, CONDOMS, DIAPHRAGMS, BALLOONS, SOCKS, OR UNDERWEAR?NO LATEX ALLERGY : HAVE YOU EVER DEVELOPED ANY TYPE OF REACTION DURING OR AFTER DENTAL APPOINTMENT, VAGINAL/RECTAL EXAMINATION, SURGICAL PROCEDURE, OR ANY OTHER EXPOSURE?NO LATEX RISK : HAVE YOU EVER HAD ANY DIFFICULTY BREATHING OR HIVES AFTER EATING OR HANDLING ANY FRUITS, OR VEGETABLES; SUCH KIWI, BANANAS, STONE FRUITS, OR CHESTNUTSNO LATEX RISK : DO YOU HAVE A PREVIOUS PERSONAL HISTORY OF MORE THAN NINE SURGERIES, SPINA BIFIDA, OR REPEATED CATHERIZATIONS? NO LATEX RISK : ARE YOU FREQUENTLY EXPOSED TO LATEX PRODUCTS IN YOUR OCCUPATION?NO DATE ASKED : 07/16/2020 ALCOHOL USE: YES, OCCASIONALLY. RECREATIONAL DRUG USE DRUG USE?NO LANGUAGE LANGUAGES SPOKEN:BOTH GERMAN AND DJIBOUTIAN LEARNING BARRIERS / SPECIAL NEEDS CHANGE FROM LAST VISIT?NO BARRIERS TO LEARNING?NO HEARING IMPAIRED?NO VISION IMPAIRED?YES :CORRECTIVE LENSES COGNITIVELY IMPAIRED?NO READINESS TO LEARN?YES LEARNING PREFERENCES?NO LEARNING CAPABILITIES PRESENT?YES EMOTIONAL BARRIERS?NO SPECIAL DEVICES?NO FILE CLERK DATA ENTRY NEEDED?NO MARITAL STATUS: . HOSPITALIZATION/MAJOR DIAGNOSTIC PROCEDURE SEE ABOVE REVIEW OF SYSTEMS CONSTITUTIONAL: ANY RECENT FEVER NO . CHILLS NO . WEIGHT CHANGE OF UNKNOWN REASONS NO . MUSCULOSKELETAL: ANY UNUSUAL JOINT PAIN OR SWELLING NOT MENTIONED NO . SYSTEMIC LUPUS NO . ANY NEUROMUSCULAR DISORDER NOT MENTIONED NO . LYME DISEASE NO . GASTROENTEROLOGY: ANY NEW CHANGE IN BOWEL CONTROL? NO . HISTORY OF LIVER DISORDER NOT MENTIONED NO . HISTORY OF UNUSUAL ABDOMINAL PAIN OR CRAMPING NOT MENTIONED NO . NO CONSTIPATION. GENITOURINARY: ANY NEW CHANGE IN BLADDER CONTROL? NO . ANY RENAL/KIDNEY CONDITON NOT MENTIONED NO . NEUROLOGY: HISTORY OF TBI NOT MENTIONED NO . OTHER NEW NUMBNESS OR PAIN PATTERNS NOT MENTIONED NO . NEW ONSET DIZZINESS OR NEUROLOGICAL CHANGES NOT MENTIONED NO . HISTORY OF SEVERE HEADACHES NOT MENTIONED NO . HISTORY OF STROKE OR NEUROLOGICAL DISORDER NOT MENTIONED NO . CARDIOLOGY: HEART SURGERY NO . CONGESTIVE HEART FAILURE/FLUID OVERLOAD NOT MENTIONED NO . HISTORY OF CHEST PAIN,IRREGULAR HEART BEAT NOT MENTIONED NO . RESPIRATORY: SHORTNESS OF BREATH ON EXERTION, WHEEZES, UNUSUAL COUGH NOT MENTIONED NO . ENDOCRINOLOGY: ADRENAL GLAND OR THYROID DISORDERS NOT MENTIONED NO . UNUSUAL URINATION, DIZZINESS OR LETHARGY NOT MENTIONED NO . VITAL SIGNS WT 148.2 LBS, HT 49 IN, BMI 43.39 INDEX, BP 144/67 MM HG, HR 74 /MIN, RR 18 /MIN, TEMP 97.3 F, OXYGEN SAT % 97%, SAFE IN ENV? (Y/N) YES, NA INITIALS AW [id number].NAHOMI FISCHER, PATIENT STATED THATS SHE DID NOT TAKE HER MEDICATION THIS MORNING. EXAMINATION GENERAL EXAMINATION: GENERALAPPEARS UNCOMFORTABLE, WELL NOURISHED AND HYDRATED. PSYCHAPPROPRIATE MOOD AND AFFECT . NECK:NO LYMPHADENOPATHY, SUPPLE. LUNGS:CLEAR TO AUSCULTATION BILATERALLY, NO WHEEZES, RHONCHI, RALES. HEART:NO MURMURS, REGULAR RATE AND RHYTHM. MUSCULOSKELETAL:WEAKNESS NOTED OVER LEFT LEG . LUMBAR:TENDER WITH PALPATION OVER THE LS SPINE AND L/S PARASPINALS. SPECIFIC POINT TENDERNESS NOTED OVER SACROILIAC JOINT REGION LEFT GREATER THAN RIGHT. RANGE OF JOINT MOTION OF THE SPINE AGGRAVATES PAIN. SLE LEFT LEG + AT 45 DEGREES . NEUROLOGIC EXAM: NORMAL SENSATION LIGHT TOUCH LOWER EXTREMITIES . DIAGNOSTIC TESTS REVIEWED MRI L/S SPINE-06/2020. 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 THIS WILL ALLOW HER TO ATTEND TO PHYSICAL THERAPY WITHOUT MUCH PAIN. THIS WILL ALLOW HER TO COMPLETE PHYSICAL THERAPY AND WILL IMPROVE HER OVERALL OUTCOME IN A TIMELY FASHION. PROCEDURES PN WORKMANS' COMP OPINION IN YOUR OPINION, WAS THE INCIDENT THAT THE PATIENT DESCRIBED THE COMPETENT MEDICAL CAUSE OF THIS INJURY/ILLNESS? YES ARE THE PATIENT'S COMPLAINTS CONSISTENT WITH HIS/HER HISTORY OF THE INJURY/ILLNESS? YES IS THE PATIENT'S HISTORY OF THE INJURY/ILLNESS CONSISTENT WITH YOUR OBJECTIVE FINDING? YES WHAT IS THE PERCENTAGE OF TEMPORARY IMPAIRMENT? MODERATE TO MARKED = 66.7% IS THE PATIENT WORKING? YES DOCTOR ON SITE: CORRIE PAINTER MD PROCEDURE CODES FA211 ESTABILISHED PATIENT [facility] FACILITY CHARGE DISPOSITION & COMMUNICATION FOLLOW UP POST PROCEDURE (REASON: LUMBAR EPIDURAL STERIOD INJECTION) ELECTRONICALLY SIGNED BY MELISSA RAO ON 07/17/2020 AT 10:09 AM EDT DISCLAIMER : THIS IS A VISIT SUMMARY EXTRACTED FROM THE [employer] CHART. IT IS NOT A COPY OF THE [employer] PROGRESS NOTE. JADIEL
== END ==
LOC: M PAIN 13:00
PROVIDERS: ATTEND Nurse Practitioner Family
DX: M51.16 Intervertebral disc disorders with radiculopathy, lumbar region (principal); F17.210 Nicotine dependence, cigarettes, uncomplicated; Z86.59 Personal history of other mental and behavioral disorders; E66.01 Morbid (severe) obesity due to excess calories; Z68.41 Body mass index [BMI] 40.0-44.9, adult; Z79.899 Other long term (current) drug therapy

== ENCOUNTER → 2020-08-28 | Outpatient (CLI) | payer OTHER | LOC: M LABSMTC 13:55 | PROVIDERS: ATTEND Anesthesiology | DX: Z20.828 Contact with and (suspected) exposure to other viral communicable diseases (principal); Z11.59 Encounter for screening for other viral diseases ==

== ENCOUNTER → 2020-09-02 | Outpatient (CLI) | payer OTHER ==
[~2020-09-02] MED LIST changes: +ISOVUE-M 300 61% 15ML VIAL As Ordered ONE; +LIDOCAINE 1% SDV 30ML VIAL As Ordered ONE; +MIDAZOLAM INJ 2MG/2ML VIAL (J2250 PER 1MG) As Ordered ONE; +NORCO, ANEXSIA 5/325MG TABLET (HYDROcodone/ACETAMINOPHEN) As Ordered ONE; +ONDANSETRON 4MG/2ML VIAL As Ordered ONE; +diazePAM 5MG TABLET As Ordered ONE; +methylPREDNISolone SUSP 40MG/ML 1ML VIAL (DEPO MEDROL) As Ordered ONE
--- NOTE | 2020-09-02 10:57 | REP ---
INDICATION: LESI. COMPARISON: None. TECHNIQUE: A single views. 5.1 seconds of fluoroscopy time is reported. FINDINGS: A single last image hold fluoroscopically obtained spot radiograph(s) of the lumbar spine document(s) needle position(s) and contrast injection associated with injection procedure. IMPRESSION: Procedural imaging. <Electronically signed by Steven Jose > 09/02/20 1748
--- NOTE | 2020-09-04 02:35 | ECWPNPC ---
PATIENT NAME: ANTONIO ALEXANDRA : 1970 GENDER: FEMALE VISIT DATE: 09/02/2020 DISCHARGE DATE: 09/02/20 1148 VISIT LOCKED DATE TIME: PHYSICIAN: CORRIE MEYERS MD RESOURCE: CORRIE MEYERS MD REASON FOR APPOINTMENT 1. LUMBAR EPIDURAL STEROID INJECTION L4-L5 HISTORY OF PRESENT ILLNESS GENERAL: -. FALL RISK SCREENING: SCREENING : NO FALLS REPORTED IN THE LAST YEAR. PAIN SCREENING: PATIENT HAS A COMPLAINT OF ACUTE OR CHRONIC PAIN :YES LOCATION OF PAIN:LOW BACK, LEG(S) INTENSITY OF PAIN (SCALE OF 1 TO 10):10 WHAT DOES YOUR PAIN FEEL LIKE:STABBING, THROBBING DURATION:CONTINOUS, CONSTANT PAIN IS INCREASED BY:ACTIVITIES PAIN IS DECREASED BY:USE OF PAIN MEDICATIONS NURSING NOTE: -. PAIN CENTER INTAKE QUESTIONS: DO YOU HAVE A HISTORY OF MRSA? :NO DO YOU TAKE A BLOOD THINNERS? :NO DO YOU HAVE ANY BLEEDING DISORDERS? :NO ANY NEW NUMBNESS OR WEAKNESS IN YOUR LEGS OR ARMS? :NO ANY PACEMAKER,DEFIBRILLATOR, OR DORSAL COLUMN STIMULATOR? :NO DO YOU HAVE ANY RASHES OR OPEN SORES? :NO ARE YOU ALLERGIC TO IV DYE? :NO ARE YOU DIABETIC? :NO ANY NEW PROBLEMS WITH YOUR MEDICATIONS? :NO HAVE YOU RECEIVED A VACCINE IN THE PAST 30 DAYS? :NO DO YOU PLAN TO RECEIVE A VACCINE IN THE NEXT 21 DAYS? :NO DO YOU TAKE ANY IMMUNOSUPPRESSIVE MEDICATIONS? :NO ANY HISTORY OF SEIZURES? :NO ANY HISTORY OF CARDIAC ISSUES OR EVENTS? :NO DO YOU HAVE ANY KIDNEY OR LIVER DISEASE? :NO DO YOU HAVE SLEEP APNEA? :NO ANY RECENT HEAD INJURY? :NO DO YOU HAVE ANY NEW INFECTIONS? :NO IS THERE A CHANCE YOU COULD BE ? :NO ARE YOU BREAST FEEDING? :NO WHEN DID YOU LAST EAT? : 09/01/202129 WHEN DID YOU LAST DRINK? : 09/02/20 0630 WHAT DID YOU LAST DRINK? : WATER NAME OF PERSON DRIVING YOU HOME? : DAUGHTER DO YOU HAVE ANY OTHER QUESTIONS OR CONCERNS? : - CURRENT MEDICATIONS TAKING GABAPENTIN 100 MG CAPSULE 1 CAPSULE ORALLY TWICE A DAY, NOTES: 09/01/20 TAKING LOSARTAN POTASSIUM 50 MG TABLET 1 TABLET ORALLY ONCE A DAY, NOTES: 09/01/20 TAKING NAPROXEN SODIUM 550 MG TABLET 1 TABLET WITH FOOD OR MILK NEEDED ORALLY EVERY 12 HRS TAKING ROBAXIN-750 750MG TAB EVERY 6 HOURS TAKING SUMATRIPTAN SUCCINATE 50 MG TABLET 1 TABLET AT LEAST 2 HOURS BETWEEN DOSES NEEDED ORALLY TWICE A DAY TAKING TOPIRAMATE 25 MG TABLET 1 TABLET ORALLY ONCE A DAY TAKING MELOXICAM 7.5 MG TABLET 1 TABLET ORALLY ONCE A DAY NOT-TAKING HYDROCODONE-ACETAMINOPHEN 5-325 MG TABLET 1 TABLET NEEDED ORALLY EVERY 6 HRS NOT-TAKING METHOCARBAMOL 500 MG TABLET 1.5 TABLETS ORALLY EVERY 4 HRS MEDICATION LIST REVIEWED AND RECONCILED WITH THE PATIENT PAST MEDICAL HISTORY WORK INJURY ON 03/20/2020- WORKS AT [email or web address] BACK PAIN ANEMIA ANXIETY TRANSFUSION OF BLOOD PRODUCT LAST YEAR SEPT HEADACHE HIGH BLOOD PRESSURE ALLERGIES N.K.D.A. SOCIAL HISTORY GENERAL: TOBACCO USE ARE YOU A:CURRENT SMOKER HOW OFTEN DO YOU SMOKE CIGARETTES?EVERY DAY HOW SOON AFTER YOU WAKE UP DO YOU SMOKE YOUR FIRST CIGARETTE?AFTER 60 MIN HOW MANY CIGARETTES A DAY DO YOU SMOKE?5 OR LESS ARE YOU INTERESTED IN QUITTING?THINKING ABOUT QUITTING PATIENT COUNSELED ON THE DANGERS OF TOBACCO USE AND URGED TO QUIT:07/16/2020 COUNSELED THE PATIENT ON SMOKING CESSATION, EDUCATION [id number]/10/2021 PREVIOUS QUIT ATTEMPTS?NO. LATEX QUESTIONNAIRE LATEX ALLERGY : HAVE YOU EVER DEVELOPED ANY TYPE OF REACTION AFTER HANDLING LATEX PRODUCTS SUCH RUBBER GLOVES, CONDOMS, DIAPHRAGMS, BALLOONS, SOCKS, OR UNDERWEAR?NO LATEX ALLERGY : HAVE YOU EVER DEVELOPED ANY TYPE OF REACTION DURING OR AFTER DENTAL APPOINTMENT, VAGINAL/RECTAL EXAMINATION, SURGICAL PROCEDURE, OR ANY OTHER EXPOSURE?NO DATE ASKED : 07/16/2020 LATEX RISK : HAVE YOU EVER HAD ANY DIFFICULTY BREATHING OR HIVES AFTER EATING OR HANDLING ANY FRUITS, OR VEGETABLES; SUCH KIWI, BANANAS, STONE FRUITS, OR CHESTNUTSNO LATEX RISK : DO YOU HAVE A PREVIOUS PERSONAL HISTORY OF MORE THAN NINE SURGERIES, SPINA BIFIDA, OR REPEATED CATHERIZATIONS? NO LATEX RISK : ARE YOU FREQUENTLY EXPOSED TO LATEX PRODUCTS IN YOUR OCCUPATION?NO ALCOHOL USE: YES, OCCASIONALLY. RECREATIONAL DRUG USE DRUG USE?NO LANGUAGE LANGUAGES SPOKEN:BOTH CYMRAES AND NEPALI LEARNING BARRIERS / SPECIAL NEEDS CHANGE FROM LAST VISIT?NO BARRIERS TO LEARNING?NO HEARING IMPAIRED?NO VISION IMPAIRED?YES COGNITIVELY IMPAIRED?NO :CORRECTIVE LENSES READINESS TO LEARN?YES LEARNING PREFERENCES?NO LEARNING CAPABILITIES PRESENT?YES EMOTIONAL BARRIERS?NO SPECIAL DEVICES?NO STRATEGIC COMMUNICATIONS SPECIALIST NEEDED?NO MARITAL STATUS: . VITAL SIGNS WT 143.6 LBS, HT 49 IN, BMI 42.05 INDEX, BP 180/90 MM HG, HR 68 /MIN, RR 18 /MIN, TEMP 97.6 F, OXYGEN SAT % 98%, SAFE IN ENV? (Y/N) Y, NA INITIALS AW 0905, REVIEWED BY: EM. EXAMINATION GENERAL: THE PATIENT IS ALERT, ORIENTED TIMES THREE AND COOPERATIVE. LUNGS ARE CLEAR TO AUSCULTATION. HEART SHOWS REGULAR RHYTHM, NO MURMURS AND NO GALLOPS. 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 ALBIN MUSTAFA 09/02/2020 10:29:40 AM > ADMINISTERED @ 1023 OXYGEN AT 2 LITERS PER NASAL CANNULAALBIN MUSTAFA 09/02/2020 10:42:10 AM > APPLIED @ 1025 ALBIN MUSTAFA 09/02/2020 11:48:13 AM > DISCONTINUED @ 1115 COMPLETION OF PROCEDURAL VISIT WHEN MEETS CRITERIAALBIN MUSTAFA 09/02/2020 11:46:27 AM > CRITERIA MET MEDICATION: PAIN ZOFRAN 4MG/2ML IV ONDANSETRONIESHA SCHOFIELD 09/02/2020 10:23:52 AM > VERIFIED MANJU DURAND 09/02/2020 10:28:37 AM > ADMINISTERED AT 1025. MEDICATION: PAIN VALIUM TAB 5MG ORALLY (DIAZEPAM)MANJU DURAND 09/02/2020 9:06:53 AM > VERIFIED. ALBIN MUSTAFA 09/02/2020 9:15:25 AM > ADMINISTERED SALINE LOCKALBIN MUSTAFA 09/02/2020 9:27:03 AM > 22 G STARTED TO RIGHT AC, GOOD FLASH BACK, FLUSHES EASILY, PT DENIES PAIN ALBIN MUSTAFA 09/02/2020 11:41:39 AM > LR KVO 200CC INFUSED ALBIN MUSTAFA 09/02/2020 11:41:53 AM > SL DISCONTINUED MED: PAIN NORCO TABLET 5MG/325MG ORALLY HYDROCODONE/ACETAMINOPHENSYLVMANJU PRADO Janett 09/02/2020 9:07:05 AM > VERIFIED. ALBIN MUSTAFA 09/02/2020 9:15:41 AM > ADMINISTERED OTHERS NOTES: PAT DONE 08/28/20 EM . PROCEDURES PAIN NURSING RECORD PROCEDURE IN ROOM 0945, PHYSICIAN IN ROOM 0953, START 1000, FINISH 1004, PHYSICIAN OUT OF ROOM 1006, OUT OF ROOM 1012, ECG OTHER SINUS CECILIA, PATIENT SHIELDED YES, SAFETY STRAP YES, PREP BETADINE Sol DURAND RN, DRESSING TEGADERM DR. MEYERS LOC: 1. ALERT, ORIENTED, ALBIN MUSTAFA 09/02/2020 10:02:55 AM > RESP: 1. REGULAR, NO DYSPNEA, ALBIN MUSTAFA 09/02/2020 10:02:58 AM > COLOR: 1. PINK, ALBIN MUSTAFA 09/02/2020 10:03:02 AM > SKIN: 1. WARM, DRY, ALBIN MUSTAFA 09/02/2020 10:03:06 AM > POSITION: 1. PRONE, ALBIN MUSTAFA 09/02/2020 9:54:08 AM > VITALS: 145/65, 57, 16, 98%, ABLIN MUSTAFA 09/02/2020 9:54:29 AM > 135/61, 55, 16, 99%, ALBIN MUSTAFA 09/02/2020 10:03:24 AM > 180/79, 56, 16, 99%, ALBIN MUSTAFA 09/02/2020 10:15:52 AM > 167/63, 56, 16, 99%, ALBIN MUSTAFA 09/02/2020 10:20:24 AM > 154/66, 55, 18, 100%ON 2L NC, ALBIN MUSTAFA 09/02/2020 10:25:34 AM > 128/59, 50, 16, 100% ON 2L NC, ALBIN MUSTAFA 09/02/2020 10:30:08 AM > 139/64, 49, 16, 100% ON 2L NC, ALBIN MUSTAFA 09/02/2020 10:43:18 AM > 132/60, 50, 18, 100% ON 2L NC, ALBIN MUSTAFA 09/02/2020 11:02:14 AM > 137/67, 54, 16, 100% ON 2L NC, ALBIN MUSTAFA 09/02/2020 11:13:41 AM > 148/77, 58, 16, 99% ON RA, ALBIN MUSTAFA 09/02/2020 11:28:56 AM > NOTES Niles MUSTAFA RN, ALBIN MUSTAFA 09/02/2020 9:54:40 AM > COMPLETION OF PROCEDURE APPOINTMENT: POST PAIN 8, DRESSING SITE DRY AND INTACT, IV DISCONTINUED, SITE CLEAR, CATHETER INTACT, GAIT STEADY, TEACHING COMPLETED, PATIENT ACKNOWLEDGES UNDERSTANDING YES, PROCEDURE APPOINTMENT COMPLETED AT 1147 : POST PROCEDURE, PT SAT UP ON BED FOR A MINUTE AND REPORTED FEELING DIZZY AND ROOM IS SPINNING, PT TO [facility] VIA STRETCHER, COLD PACK TO FOREHEAD, VS TAKEN, PT REPORTS FEELING DIZZY, NAUSEATED AND LIGHTS BOTHER HER. DR MEYERS CALLED AND AT BEDSIDE. LR INFUSING PER ORDER, VERSED 1MG GIVEN IV, ZOFRAN 4MG IV GIVEN, FS 111, 02 2L NC STARTED @ 1025. PT RESTING SUPINE.MOON ELIZABETH 09/02/2020 10:40:46 AM > PT REPORTS NAUSEA IS IMPROVING, DIZZINESS IS GONE, PT STARTED TO SIP WATER., ALBIN MUSTAFA 09/02/2020 11:06:24 AM > HOB RAISED @ 1100.MOON ELIZABETH 09/02/2020 11:11:00 AM > PT EATING SALTINE CRACKERS, ALBIN MUSTAFA 09/02/2020 11:13:11 AM > PT REPORTS FEELING BETTER, O2 REMOVED FOR TRIAL.MOON ELIZABETH 09/02/2020 11:15:31 AM > PT SITTING UP IN BED WITH FEET TO FLOOR, PT REPORTS SHE FEELS BETTER, DIZZINESS AND NAUSEA ARE GONE., ALBIN MUSTAFA 09/02/2020 11:24:28 AM > PT AMBULATED DOWN GODWIN WITH NURSE STANDBY, PT REPORTS SHE FEELS BETTER AND WANTS TO GO HOME. SPOKE WITH DR MEYERS, OK TO DISCONTINUE IV. REQUESTED ORDER FOR IVF INFUSION, SPOKE WITH NILESH RADFORD WHO INFORMED US THAT I JUST DOCUMENT IVF INFUSING UNDER SL ORDER., MOONALBIN 09/02/2020 11:41:10 AM > PN WORKMANS' COMP OPINION IN YOUR OPINION, WAS THE INCIDENT THAT THE PATIENT DESCRIBED THE COMPETENT MEDICAL CAUSE OF THIS INJURY/ILLNESS? YES ARE THE PATIENT'S COMPLAINTS CONSISTENT WITH HIS/HER HISTORY OF THE INJURY/ILLNESS? YES IS THE PATIENT'S HISTORY OF THE INJURY/ILLNESS CONSISTENT WITH YOUR OBJECTIVE FINDING? YES WHAT IS THE PERCENTAGE OF TEMPORARY IMPAIRMENT? MODERATE TO MARKED = 66.7% IS THE PATIENT WORKING? YES DOCTOR ON SITE: CORRIE PAINTER MD PRE PROCEDURE DIAGNOSIS LUMBAR DISC DISORDER WITH RADICULOPATHY POST PROCEDURE DIAGNOSIS LUMBAR DISC DISORDER WITH RADICULOPATHY PROCEDURE LUMBAR EPIDURAL STEROID INJECTION UNDER FLUOROSCOPIC GUIDANCE SURGEON DR. CORRIE MEYERS COMMERCIAL ATTORNEY NONE ANESTHESIA LOCAL PRE PROCEDURE NOTE THE PATIENT HAS A HISTORY OF CHRONIC LOW BACK PAIN. I EVALUATED THE PATIENT AND REVIEWED THE CHART. I WENT OVER THE RISKS, ALTERNATIVES, AND BENEFITS ASSOCIATED WITH THIS PROCEDURE. THE PATIENT WOULD LIKE TO PROCEED AND GIVE CONSENT TO PERFORMED THE PROCEDURE. THE PATIENT DENIES UNEXPLAINABLE WEIGHT LOSS, FEVER, CHILLS, OR NEW CHANGES IN URINARY OR BOWEL CONTROL. THE PATIENT IS COVID-19 NEGATIVE DESCRIPTION OF PROCEDURE THE PATIENT WAS BROUGHT TO THE PROCEDURE ROOM AND PLACED IN THE PRONE POSITION. THE LUMBOSACRAL AREA WAS CLEANED WITH BETADINE SOLUTION AND DRAPED ASEPTICALLY. THE PROCEDURE WAS DONE UNDER STERILE CONDITIONS. A TIMEOUT WAS PERFORMED WHERE THE CONSENTED SITE WAS VERIFIED WITH EVERYONE IN THE ROOM. UNDER FLUOROSCOPIC GUIDANCE, THE TARGET POINT WAS SELECTED AT THE INTERLAMINAR LEVEL OF L5-S1. I CONFIRMED AGAIN THE SITE OF TARGET. LIDOCAINE WAS USED TO NUMB THE SKIN AND THE SUBCUTANEOUS TISSUE BELOW IT. EPIDURAL TUOHY NEEDLE, 17-GAUGE, WAS ADVANCED UNDER FLUOROSCOPIC GUIDANCE AND FOLLOWING PATIENT FEEDBACK UNTIL THE EPIDURAL SPACE WAS REACHED 7 CM DEEP INTO THE SKIN BY THE LOSS OF RESISTANCE TECHNIQUE. ISOVUE-M DYE 30%, 0.25 ML, WAS INJECTED SHOWING ADEQUATE SPREAD OF THE DYE. THEN, A SOLUTION OF 3 ML OF NORMAL SALINE WITH DEPO-MEDROL 40 MG WAS INJECTED SLOWLY FOLLOWING PATIENT FEEDBACK. THE MEDICATIONS WERE VERIFIED WITH THE NURSE. THERE WAS NO EVIDENCE OF BLOOD, PARESTHESIA OR CEREBROSPINAL FLUID DURING THE PROCEDURE. THE PATIENT WAS SENT TO THE RECOVERY ROOM. THE PATIENT WAS MOVING THE EXTREMITIES AND DOING WELL. THERE WERE NO COMPLICATIONS DURING THE PROCEDURE. ESTIMATED BLOOD LOSS WAS LESS THAN 5 ML. FLUOROSCOPY TIME WAS 5 SECONDS POST PROCEDURE NOTE AFTER THE PROCEDURE, THE PATIENT WAS SHAKING AND NERVOUS. HER BLOOD PRESSURE AND HEART RATE WERE NORMAL. I GAVE HER SOME SEDATION AND OBSERVED HER. DEPENDING ON THE RESULTS, CONSIDER A LEFT L4-L5, L5-S1 TRANSFORAMINAL. THE PATIENT WILL BE SEEN IN A FOLLOW UP IN THE NEXT FEW WEEKS. I AM LOOKING FOR LONG LASTING RELIEF FOR THE PATIENT WITH THIS INTERVENTION. INSTRUCTIONS WERE GIVEN, QUESTIONS WERE ANSWERED, AND THE PATIENT EXPRESSED UNDERSTANDING AND AGREES WITH THE PLAN. I, MALINA CROCKETT, DOCUMENTED THE ABOVE INFORMATION ACTING A SCRIBE FOR DR. MEYERS. I HAVE REVIEWED THE ABOVE DOCUMENT, WRITTEN BY MALINA CROCKETT, CREDIT VERIFICATION CLERK, AND I VERIFY THAT IT IS ACCURATE PROCEDURE CODES 93188 LUMBAR/SACRAL W/ IMAGING DISPOSITION & COMMUNICATION FOLLOW UP FOLLOW UP WITH ANALYTICAL STATISTICIAN (REASON: POST LUMBAR EPIDURAL STEROID INJECTION) ELECTRONICALLY SIGNED BY CORRIE MEYERS MD, MD ON 09/03/2020 AT 11:36 AM EDT DISCLAIMER : THIS IS A VISIT SUMMARY EXTRACTED FROM THE [employer] CHART. IT IS NOT A COPY OF THE [employer] PROGRESS NOTE. [email or web address]
== END ==
LOC: M PAIN 08:30
PROVIDERS: ATTEND Anesthesiology
DX: M51.16 Intervertebral disc disorders with radiculopathy, lumbar region (principal); D64.9 Anemia, unspecified; F41.9 Anxiety disorder, unspecified; F17.210 Nicotine dependence, cigarettes, uncomplicated; Z79.1 Long term (current) use of non-steroidal anti-inflammatories (NSAID); Z79.899 Other long term (current) drug therapy
CPT/HCPCS: 62323; J1030; J2250; J2405; Q9967

== ENCOUNTER → 2020-09-16 | Outpatient (CLI) | payer OTHER ==
[~2020-09-16] MED LIST changes: -ISOVUE-M 300 61% 15ML VIAL As Ordered ONE; -LIDOCAINE 1% SDV 30ML VIAL As Ordered ONE; -MIDAZOLAM INJ 2MG/2ML VIAL (J2250 PER 1MG) As Ordered ONE; -NORCO, ANEXSIA 5/325MG TABLET (HYDROcodone/ACETAMINOPHEN) As Ordered ONE; -ONDANSETRON 4MG/2ML VIAL As Ordered ONE; -diazePAM 5MG TABLET As Ordered ONE; -methylPREDNISolone SUSP 40MG/ML 1ML VIAL (DEPO MEDROL) As Ordered ONE
--- NOTE | 2020-09-22 03:19 | ECWPNPC ---
PATIENT NAME: ANTONIO ALEXANDRA : 1970 GENDER: FEMALE VISIT DATE: 09/16/2020 DISCHARGE DATE: 09/16/20 1505 VISIT LOCKED DATE TIME: PHYSICIAN: CORRIE MEYERS MD RESOURCE: CORRIE MEYERS MD REASON FOR APPOINTMENT 1. POST LUMBAR EPIDURAL STEROID INJECTION HISTORY OF PRESENT ILLNESS GENERAL: 50-YEAR-OLD FEMALE PATIENT WITH A HISTORY OF CHRONIC LOW BACK AND LEFT LEG PAIN. THE PATIENT DESCRIBES THE PAIN CONTINUOUS WITH A PAIN SCORE RANGING FROM 8-10 /10 IN THE BACK WITH RADIATION TO THE LEFT LEG. SHE DID AN INTERLAMINAR EPIDURAL THAT DID NOT HELP HER. THIS IS AFFECTING HER ABILITY TO DO ACTIVITIES SUCH CLEANING HER HOUSE AND GROCERY SHOPPING. SHE CANNOT FUNCTION. SHE IS LOOKING FOR HELP. SHE IS USING MEDICATIONS THAT DO NOT HELP. THIS IS A WORK-RELATED INJURY THAT OCCURRED 03/2020. SHE WAS WORKING AND SHE LIFTED A HEAVY BOX WHEN SHE EXPERIENCED THIS BACK AND LEFT LEG PAIN. FALL RISK SCREENING: SCREENING : NO FALLS REPORTED IN THE LAST YEAR. PAIN SCREENING: PATIENT HAS A COMPLAINT OF ACUTE OR CHRONIC PAIN :YES LOCATION OF PAIN:LOW BACK, LEG(S) INTENSITY OF PAIN (SCALE OF 1 TO 10):10 WHAT DOES YOUR PAIN FEEL LIKE:SHOOTING DURATION:CONTINOUS, CONSTANT, RHYTHMIC PAIN IS INCREASED BY:ACTIVITIES PROLONGED WALKING PAIN IS DECREASED BY:USE OF PAIN MEDICATIONS NURSING NOTE: -. PAIN CENTER INTAKE QUESTIONS: DO YOU HAVE A HISTORY OF MRSA? :NO DO YOU TAKE A BLOOD THINNERS? :NO DO YOU HAVE ANY BLEEDING DISORDERS? :NO ANY NEW NUMBNESS OR WEAKNESS IN YOUR LEGS OR ARMS? :NO WORSENING WEAKNESS IN LEGS/ARMS ANY PACEMAKER,DEFIBRILLATOR, OR DORSAL COLUMN STIMULATOR? :NO DO YOU HAVE ANY RASHES OR OPEN SORES? :NO ARE YOU ALLERGIC TO IV DYE? :NO ARE YOU DIABETIC? :NO ANY NEW PROBLEMS WITH YOUR MEDICATIONS? :NO HAVE YOU RECEIVED A VACCINE IN THE PAST 30 DAYS? :NO DO YOU PLAN TO RECEIVE A VACCINE IN THE NEXT 21 DAYS? :NO DO YOU NEED ANY PRESCRIPTION? :NO DO YOU TAKE ANY IMMUNOSUPPRESSIVE MEDICATIONS? :NO DO YOU HAVE ANY KIDNEY OR LIVER DISEASE? :NO IS THERE A CHANCE YOU COULD BE ? :NO ARE YOU BREAST FEEDING? :NO CURRENT MEDICATIONS TAKING GABAPENTIN 100 MG CAPSULE 1 CAPSULE ORALLY TWICE A DAY, NOTES: 09/01/20 TAKING LOSARTAN POTASSIUM 50 MG TABLET 1 TABLET ORALLY ONCE A DAY, NOTES: 09/01/20 TAKING NAPROXEN SODIUM 550 MG TABLET 1 TABLET WITH FOOD OR MILK NEEDED ORALLY EVERY 12 HRS TAKING ROBAXIN-750 750MG TAB EVERY 6 HOURS TAKING SUMATRIPTAN SUCCINATE 50 MG TABLET 1 TABLET AT LEAST 2 HOURS BETWEEN DOSES NEEDED ORALLY TWICE A DAY TAKING TOPIRAMATE 25 MG TABLET 1 TABLET ORALLY ONCE A DAY TAKING MELOXICAM 7.5 MG TABLET 1 TABLET ORALLY ONCE A DAY NOT-TAKING HYDROCODONE-ACETAMINOPHEN 5-325 MG TABLET 1 TABLET NEEDED ORALLY EVERY 6 HRS NOT-TAKING METHOCARBAMOL 500 MG TABLET 1.5 TABLETS ORALLY EVERY 4 HRS MEDICATION LIST REVIEWED AND RECONCILED WITH THE PATIENT PAST MEDICAL HISTORY WORK INJURY ON 03/20/2020- WORKS AT [employer] BACK PAIN ANEMIA ANXIETY TRANSFUSION OF BLOOD PRODUCT LAST YEAR SEPT HEADACHE HIGH BLOOD PRESSURE ALLERGIES N.K.D.A. SOCIAL HISTORY GENERAL: TOBACCO USE ARE YOU A:CURRENT SMOKER ARE YOU INTERESTED IN QUITTING?THINKING ABOUT QUITTING PREVIOUS QUIT ATTEMPTS?NO. COUNSELED THE PATIENT ON SMOKING CESSATION, EDUCATION [id number]/10/2021 HOW MANY CIGARETTES A DAY DO YOU SMOKE?5 OR LESS HOW SOON AFTER YOU WAKE UP DO YOU SMOKE YOUR FIRST CIGARETTE?AFTER 60 MIN HOW OFTEN DO YOU SMOKE CIGARETTES?EVERY DAY PATIENT COUNSELED ON THE DANGERS OF TOBACCO USE AND URGED TO QUIT:07/16/2020 LATEX QUESTIONNAIRE LATEX ALLERGY : HAVE YOU EVER DEVELOPED ANY TYPE OF REACTION AFTER HANDLING LATEX PRODUCTS SUCH RUBBER GLOVES, CONDOMS, DIAPHRAGMS, BALLOONS, SOCKS, OR UNDERWEAR?NO LATEX ALLERGY : HAVE YOU EVER DEVELOPED ANY TYPE OF REACTION DURING OR AFTER DENTAL APPOINTMENT, VAGINAL/RECTAL EXAMINATION, SURGICAL PROCEDURE, OR ANY OTHER EXPOSURE?NO LATEX RISK : HAVE YOU EVER HAD ANY DIFFICULTY BREATHING OR HIVES AFTER EATING OR HANDLING ANY FRUITS, OR VEGETABLES; SUCH KIWI, BANANAS, STONE FRUITS, OR CHESTNUTSNO LATEX RISK : DO YOU HAVE A PREVIOUS PERSONAL HISTORY OF MORE THAN NINE SURGERIES, SPINA BIFIDA, OR REPEATED CATHERIZATIONS? NO LATEX RISK : ARE YOU FREQUENTLY EXPOSED TO LATEX PRODUCTS IN YOUR OCCUPATION?NO DATE ASKED : 07/16/2020 ALCOHOL USE: YES, OCCASIONALLY. RECREATIONAL DRUG USE DRUG USE?NO LANGUAGE LANGUAGES SPOKEN:BOTH SCOTTISH AND [place]ENLANDIC LEARNING BARRIERS / SPECIAL NEEDS CHANGE FROM LAST VISIT?NO BARRIERS TO LEARNING?NO HEARING IMPAIRED?NO VISION IMPAIRED?YES :CORRECTIVE LENSES COGNITIVELY IMPAIRED?NO READINESS TO LEARN?YES LEARNING PREFERENCES?NO LEARNING CAPABILITIES PRESENT?YES EMOTIONAL BARRIERS?NO SPECIAL DEVICES?NO OUTSIDE SALES ADVERTISING EXECUTIVE NEEDED?NO MARITAL STATUS: . REVIEW OF SYSTEMS CONSTITUTIONAL: ANY RECENT FEVER NO . CHILLS NO . WEIGHT CHANGE OF UNKNOWN REASONS NO . GASTROENTEROLOGY: NEW UNEXPLAINABLE CHANGES IN BOWEL CONTROL NO . CONSTIPATION NO . GENITOURINARY: ANY NEW CHANGE IN BLADDER CONTROL? NO . NEUROLOGY: NEW ONSET DIZZINESS OR NEUROLOGICAL CHANGES NOT MENTIONED NO . NEW NUMBNESS OR PAIN PATTERNS NOT MENTIONED AND PERTINENT TO TODAY'S VISIT NO . CARDIOLOGY: NEW CHEST PRESSURE NO . PATIENT DENIES NO . RESPIRATORY: UNEXPLAINABLE COUGH NO . NEW SHORTNESS OF BREATH NO . VITAL SIGNS WT 140 LBS, WT-KG 63.5 KG, HT 49 IN, BMI 40.99 INDEX, BP 130/65 MM HG, HR 79 /MIN, RR 18 /MIN, TEMP 97.9 F, OXYGEN SAT % 98%, SAFE IN ENV? (Y/N) YES, NA INITIALS SC 14:06, REVIEWED BY: APA. ALEKSEY RN. EXAMINATION GENERAL: THE PATIENT IS ALERT, ORIENTED TIMES THREE AND COOPERATIVE. LUNGS ARE CLEAR TO AUSCULTATION. HEART SHOWS REGULAR RHYTHM, NO MURMURS AND NO GALLOPS. HER WALK IS ANTALGIC. SHE SEEMS TO BE LIMPING FROM THE LEFT LEG WHICH IS WEAKER THAN THE RIGHT LEG ON FLEXION AND EXTENSION. STRAIGHT LEG RAISE IS POSITIVE FOR RADICULOPATHY ON THE LEFT AT 30 DEGREES. MRI OF THE LUMBAR SPINE DATED 06/11/2020 IS SHOWING A BULGING DISC AT L5-S1 THAT SEEMS TO BE CLOSE TO THE LEFT NERVE OF S1. ASSESSMENTS OTHER CHRONIC PAIN - G89.29 (PRIMARY) INTERVERTEBRAL DISC DISORDERS WITH RADICULOPATHY, LUMBOSACRAL REGION - M51.17 TREATMENT OTHER CHRONIC PAIN PAIN PROCEDURE [id number] OF PROCEDURE09/02/20PROCEDURE:LUMBAR EPIDURAL STEROID INJECTIONAMOUNT OF PRE SEDATEVALIUM 5MG, NORCO 5/325MG, ZOFRAN 4MG IV, VERSED 1MG IVRESULT:DID NOT WORK CLINICAL NOTES: PRE-PROCEDURE INSTRUCTIONS PRINTED AND REVIEWED WITH PATIENT; PATIENT VERBALIZED AN UNDERSTANDING. EDUCATIONAL MATERIAL ON TRANSFORMAINAL INJECTION ALSO PRINTED FOR PATIENT TO REVIEW. DEVON HARTMAN. INTERVERTEBRAL DISC DISORDERS WITH RADICULOPATHY, LUMBOSACRAL REGION CLINICAL NOTES: I DISCUSSED ALTERNATIVES WITH MS. ALEXANDRA. IN VIEW THAT THE INTERLAMINAR EPIDURAL DID NOT HELP, I WILL REQUEST AUTHORIZATION FOR A LEFT L4-L5, L5-S1 TRANSFORAMINAL EPIDURAL, BOOK AFTER APPROVED. I WILL GO FROM THE TRANSFORAMINAL ROUTE WHICH IS DIRECTLY AT THE ROOT OF THE NERVE. THE PATIENT AGREES WITH THE PLAN. I, MALINA CROCKETT, DOCUMENTED THE ABOVE INFORMATION ACTING A SCRIBE FOR DR. MEYERS. I HAVE REVIEWED THE ABOVE DOCUMENT, WRITTEN BY MALINA CROCKETT, COOK RELIEF, AND I VERIFY THAT IT IS ACCURATE. PROCEDURES PN WORKMANS' COMP OPINION IN YOUR OPINION, WAS THE INCIDENT THAT THE PATIENT DESCRIBED THE COMPETENT MEDICAL CAUSE OF THIS INJURY/ILLNESS? YES ARE THE PATIENT'S COMPLAINTS CONSISTENT WITH HIS/HER HISTORY OF THE INJURY/ILLNESS? YES IS THE PATIENT'S HISTORY OF THE INJURY/ILLNESS CONSISTENT WITH YOUR OBJECTIVE FINDING? YES WHAT IS THE PERCENTAGE OF TEMPORARY IMPAIRMENT? MODERATE TO MARKED = 66.7% IS THE PATIENT WORKING? YES DOCTOR ON SITE: CORRIE PAINTER MD VISIT CODES PROCEDURE CODES FA211 ESTABILISHED PATIENT [facility] CHARGE [id number] OFFICE/OUTPATIENT VISIT EST DISPOSITION & COMMUNICATION FOLLOW UP REQUEST AUTH FOR LEFT TRANSFORMAINAL EPIDRUAL STEROID INJECTION L4-L5, L5-S1 (REASON: REQUEST AUTH FOR LEFT TRANSFORMAINAL EPIDRUAL STEROID INJECTION L4-L5, L5-S1) ELECTRONICALLY SIGNED BY CORRIE MEYERS MD, ON 09/21/2020 AT 04:39 PM EDT DISCLAIMER : THIS IS A VISIT SUMMARY EXTRACTED FROM THE [employer] CHART. IT IS NOT A COPY OF THE [facility] PROGRESS NOTE. MTDD
== END ==
LOC: M PAIN 13:45
PROVIDERS: ATTEND Anesthesiology
DX: G89.29 Other chronic pain (principal); M51.17 Intervertebral disc disorders with radiculopathy, lumbosacral region; F17.210 Nicotine dependence, cigarettes, uncomplicated; Z86.59 Personal history of other mental and behavioral disorders; E66.01 Morbid (severe) obesity due to excess calories; Z68.41 Body mass index [BMI] 40.0-44.9, adult; Z79.899 Other long term (current) drug therapy

== ENCOUNTER → 2020-10-22 | Outpatient (CLI) | payer OTHER | LOC: M LABSMTC 11:45 | PROVIDERS: ATTEND Anesthesiology | DX: Z20.822 Contact with and (suspected) exposure to COVID-19 (principal) ==

== ENCOUNTER → 2020-10-27 | Outpatient (CLI) | payer OTHER ==
[~2020-10-27] MED LIST changes: +BUPIVACAINE HCL 0.25% 30ML VIAL As Ordered ONE; +ISOVUE-M 300 61% 15ML VIAL As Ordered ONE; +LIDOCAINE 1% SDV 30ML VIAL As Ordered ONE; +ONDANSETRON 4 MG ORAL DISINTEGRATING TAB As Ordered ONE; +dexameTHASONE 10MG/1ML VIAL PRES.FREE (J1100 PER 1MG) As Ordered ONE; +diazePAM 5MG TABLET As Ordered ONE; +diphenhydrAMINE 25MG CAP As Ordered ONE; +oxyCODONE 5MG TAB As Ordered ONE
--- NOTE | 2020-10-27 14:31 | REP ---
INDICATION: LEFT TRANSFORAMINAL. COMPARISON: None. TECHNIQUE: Eighty views. 86.0 seconds of fluoroscopy time is reported. FINDINGS: A sequence of 80 last image hold fluoroscopically obtained spot radiograph(s) of the lumbar spine document(s) needle position(s) and contrast injection associated with injection procedure. IMPRESSION: Procedural imaging. <Electronically signed by Steven Jose > 10/27/20 [id number]
== END ==
LOC: M PAIN 11:40
PROVIDERS: ATTEND Anesthesiology
DX: M51.16 Intervertebral disc disorders with radiculopathy, lumbar region (principal); F17.210 Nicotine dependence, cigarettes, uncomplicated; Z86.59 Personal history of other mental and behavioral disorders; E66.01 Morbid (severe) obesity due to excess calories; Z68.41 Body mass index [BMI] 40.0-44.9, adult; Z79.899 Other long term (current) drug therapy
CPT/HCPCS: 64483; 64484; J1100; Q0162; Q9967

== ENCOUNTER → 2020-11-03 | Outpatient (CLI) | payer OTHER ==
[~2020-11-03] MED LIST changes: -BUPIVACAINE HCL 0.25% 30ML VIAL As Ordered ONE; -ISOVUE-M 300 61% 15ML VIAL As Ordered ONE; -LIDOCAINE 1% SDV 30ML VIAL As Ordered ONE; -ONDANSETRON 4 MG ORAL DISINTEGRATING TAB As Ordered ONE; -dexameTHASONE 10MG/1ML VIAL PRES.FREE (J1100 PER 1MG) As Ordered ONE; -diazePAM 5MG TABLET As Ordered ONE; -diphenhydrAMINE 25MG CAP As Ordered ONE; -oxyCODONE 5MG TAB As Ordered ONE
== END ==
LOC: M PAIN 14:00
PROVIDERS: ATTEND Anesthesiology
DX: M51.16 Intervertebral disc disorders with radiculopathy, lumbar region (principal); F17.210 Nicotine dependence, cigarettes, uncomplicated; Z86.59 Personal history of other mental and behavioral disorders; E66.01 Morbid (severe) obesity due to excess calories; Z68.41 Body mass index [BMI] 40.0-44.9, adult; Z79.899 Other long term (current) drug therapy

== ENCOUNTER → 2020-11-12 | Outpatient (CLI) | payer OTHER | LOC: M PAIN 14:15 | PROVIDERS: ATTEND Anesthesiology | DX: G89.29 Other chronic pain (principal); M51.16 Intervertebral disc disorders with radiculopathy, lumbar region; F17.210 Nicotine dependence, cigarettes, uncomplicated; Z86.59 Personal history of other mental and behavioral disorders; E66.01 Morbid (severe) obesity due to excess calories; Z68.41 Body mass index [BMI] 40.0-44.9, adult; Z79.899 Other long term (current) drug therapy ==

== ENCOUNTER → 2020-12-23 | Outpatient (REF) | payer OTHER ==
[2020-12-23 18:04] LABS: AMORPHOUS SEDIMENT LARGE (NEGATIVE); APPEARANCE, URINE TURBID (CLEAR); BACTERIA, URINE AUTO NEGATIVE (NEGATIVE); BILIRUBIN, URINE AUTO NEGATIVE (NEGATIVE); BLOOD, URINE BLOOD NEGATIVE (NEGATIVE); COLOR, URINE YELLOW (YELLOW); GLUCOSE, URINE (UA) AUTO NEGATIVE (NEGATIVE); KETONE, URINE AUTO TRACE mg/dL (NEGATIVE); LEUKOCYTE ESTERASE, URINE AUTO NEGATIVE (NEGATIVE); MUCUS, URINE SMALL (NEGATIVE); NITRITE, URINE AUTO NEGATIVE (NEGATIVE); PROTEIN, URINE AUTO NEGATIVE (NEGATIVE); RBC, URINE AUTO 0 /HPF (0-3); SPECIFIC GRAVITY URINE AUTO 1.025 (1.002-1.035); SQUAMOUS EPITHELIAL CELL UR AU 12 /HPF (0-6); WBC, URINE AUTO 0 /HPF (0-3)
== END ==
LOC: M LAB REF 16:50
PROVIDERS: ATTEND Nurse Practitioner Family
DX: R39.16 Straining to void (principal)

== ENCOUNTER → 2021-01-19 | Outpatient (CLI) | payer OTHER ==
[~2021-01-19] MED LIST changes: +ALBU8.5H INH; +AMOX875T2; +ESTR1TAB PO; +GABA-283 PO; -IBUP-1022; +IBUP-1022 PO; +LOSA50TA28 PO; -LOSA50TA88; -PROP10TA56; +PROP10TA56 PO; +TIZA2TA PO
== END ==
LOC: M PAIN 16:00
PROVIDERS: ATTEND Anesthesiology
DX: M51.16 Intervertebral disc disorders with radiculopathy, lumbar region (principal); F17.210 Nicotine dependence, cigarettes, uncomplicated; Z79.1 Long term (current) use of non-steroidal anti-inflammatories (NSAID); Z79.891 Long term (current) use of opiate analgesic; Z79.899 Other long term (current) drug therapy

== ENCOUNTER 2021-01-27 19:14 | Emergency (ER) | payer OTHER ==
[~2021-01-27] VITALS: Ht 149.9 cm; Wt 62.7 kg
[~2021-01-27 19:14] MED LIST changes: -ALBU8.5H INH; -AMOX875T2; -ESTR1TAB PO; -GABA-283 PO; -TIZA2TA PO
[2021-01-27 19:15] VITALS: BP 160/71
[2021-03-30] MEDS ORDERED: ALBU8.5H INH (10:12)
[2021-03-30] MEDS ORDERED: GABA-283 PO (10:12)
[2021-03-30] MEDS ORDERED: TIZA2TA PO (10:12)
[2021-03-30] MEDS ORDERED: ESTR1TAB PO (10:20)
== END 2021-01-27 21:33 | disposition left against medical advice (07) ==
LOC: M ED 19:14
DX: Z53.21 Procedure and treatment not carried out due to patient leaving prior to being seen by health care provider (principal)

== ENCOUNTER → 2021-02-23 | Outpatient (CLI) | payer OTHER ==
[~2021-02-23] MED LIST changes: +IBUP-1022; -IBUP-1022 PO; +LOSA50TA28; -LOSA50TA28 PO; +PROP10TA56; -PROP10TA56 PO
== END ==
LOC: M PLAIMG 08:07
PROVIDERS: ATTEND Anesthesiology
DX: M51.16 Intervertebral disc disorders with radiculopathy, lumbar region (principal); M51.27 Other intervertebral disc displacement, lumbosacral region

== ENCOUNTER 2021-03-03 16:29 | Emergency (ER) | payer OTHER ==
[~2021-03-03] VITALS: Ht 149.9 cm; Wt 62.7 kg
[2021-03-03] MEDS ORDERED: AMOX875T2 (16:39)
[2021-03-03] MEDS ORDERED: NAPR-837 PO (19:51)
[2021-03-03 20:03] VITALS: BP 151/84
== END 2021-03-03 20:05 | disposition home or self-care (01) ==
LOC: M ED 16:29
DX: G56.03 Carpal tunnel syndrome, bilateral upper limbs (principal); F17.200 Nicotine dependence, unspecified, uncomplicated; G43.009 Migraine without aura, not intractable, without status migrainosus; D64.9 Anemia, unspecified; Z79.899 Other long term (current) drug therapy

== ENCOUNTER → 2021-03-08 | Outpatient (CLI) | payer OTHER ==
[~2021-03-08] MED LIST changes: +ACET-683 PO; +ALBU8.5H INH; +AMOX875T2; +ESTR1TAB PO; +GABA-283 PO; -IBUP-1022; +IBUP-1022 PO; -LOSA50TA28; +LOSA50TA28 PO; -PROP10TA56; +PROP10TA56 PO; +TIZA2TA PO
== END ==
LOC: M SOG 13:39
PROVIDERS: ATTEND Orthopaedic Surgery Hand Surgery
DX: M79.641 Pain in right hand (principal); M79.642 Pain in left hand

== ENCOUNTER → 2021-03-12 | Outpatient (CLI) | payer OTHER ==
[~2021-03-12] MED LIST changes: -ACET-683 PO; -ALBU8.5H INH; -ESTR1TAB PO; -GABA-283 PO; +IBUP-1022; -IBUP-1022 PO; +LOSA50TA28; -LOSA50TA28 PO; +PROP10TA56; -PROP10TA56 PO; -TIZA2TA PO
== END ==
LOC: M PAIN 10:00
PROVIDERS: ATTEND Nurse Practitioner Family
DX: M51.16 Intervertebral disc disorders with radiculopathy, lumbar region (principal); G89.29 Other chronic pain; F17.210 Nicotine dependence, cigarettes, uncomplicated; Z86.59 Personal history of other mental and behavioral disorders; E66.01 Morbid (severe) obesity due to excess calories; Z68.41 Body mass index [BMI] 40.0-44.9, adult; Z79.899 Other long term (current) drug therapy

== ENCOUNTER → 2021-03-29 | Outpatient (CLI) | payer OTHER ==
[~2021-03-29] MED LIST changes: +ACET-683 PO; +ALBU8.5H INH; +ESTR1TAB PO; +GABA-283 PO; -IBUP-1022; +IBUP-1022 PO; -LOSA50TA28; +LOSA50TA28 PO; -PROP10TA56; +PROP10TA56 PO; +TIZA2TA PO
== END ==
LOC: M LABSMTC 11:11
PROVIDERS: ATTEND Anesthesiology
DX: Z01.818 Encounter for other preprocedural examination (principal); Z11.52 Encounter for screening for COVID-19

== ENCOUNTER 2021-04-02 06:10 | Day surgery (SDC) | payer OTHER ==
[~2021-04-02] VITALS: Ht 149.9 cm; Wt 65.8 kg
[~2021-04-02 06:10] MED LIST changes: -ACET-683 PO; +LIDOCAINE 1% MDV 20ML VIAL SQ PRN; +LR 1,000 ML IV ONE
[2021-04-02] MEDS ORDERED: BUPIVACAINE HCL 0.25% 30ML VIAL As Ordered ONE (07:13)
[2021-04-02] MEDS ORDERED: LIDOCAINE 2% INJ 100 MG/5 ML SYRINGE As Ordered ONE (07:18)
[2021-04-02] MEDS ORDERED: MIDAZOLAM INJ 2MG/2ML VIAL (J2250 PER 1MG) As Ordered ONE (07:18)
[2021-04-02] MEDS ORDERED: ONDANSETRON 4MG/2ML VIAL As Ordered ONE (07:18)
[2021-04-02] MEDS ORDERED: fentaNYL 100 MCG/2 ML INJECTION As Ordered ONE (07:18)
[2021-04-02] MEDS ORDERED: propofoL 200 MG/20 ML VIAL As Ordered ONE (07:18)
[2021-04-02] MEDS ORDERED: ACETAMINOPHEN 1000MG 100ML IV BTL (OFIRMEV) (J0131 PER 10MG) As Ordered ONE (07:18)
[2021-04-02] MEDS ORDERED: dexameTHASONE 4 MG/ML 1ML VIAL (J1100 PER 1MG) As Ordered ONE (07:18)
[2021-04-02] MEDS ORDERED: KETOROLAC 60MG 2ML VIAL As Ordered ONE (07:18)
[2021-04-02] MEDS ORDERED: LIDOCAINE 2% 100MG/5ML SDV (FOR ANES.) As Ordered ONE (07:20)
[2021-04-02] MEDS ORDERED: LIDOCAINE 5% OINT 30GM TUBE As Ordered ONE (07:23)
[2021-04-02] MEDS ORDERED: BACITRACIN OINTMENT 30GM TUBE As Ordered ONE (08:17)
[2021-04-02] MEDS ORDERED: ACET-683 PO (08:44)
[2021-04-02] MEDS ORDERED: fentaNYL 100 MCG/2 ML INJECTION IV PRN (09:00)
[2021-04-02] MEDS ORDERED: METOCLOPRAMIDE INJ 10MG/2ML VIAL (J2765 PER 1) IV PRN (09:00)
[2021-04-02] MEDS ORDERED: LR 1,000 ML IV SCH (09:00)
[2021-04-02] MEDS ORDERED: ONDANSETRON 4MG/2ML VIAL IV PRN (09:00)
[2021-04-02] MEDS: PERCOCET 5MG/325MG TAB PO PRN ×2 (09:16→09:55)
[2021-04-02 10:30] VITALS: BP 140/82
== END 2021-04-02 10:35 | disposition home or self-care (01) ==
LOC: M SDC 06:10
PROVIDERS: ATTEND Orthopaedic Surgery Hand Surgery
DX: G56.01 Carpal tunnel syndrome, right upper limb (principal); M65.331 Trigger finger, right middle finger; M65.341 Trigger finger, right ring finger; F17.218 Nicotine dependence, cigarettes, with other nicotine-induced disorders; I10 Essential (primary) hypertension; D64.9 Anemia, unspecified; F41.9 Anxiety disorder, unspecified; G43.909 Migraine, unspecified, not intractable, without status migrainosus; Z79.899 Other long term (current) drug therapy
CPT/HCPCS: 26055; 29848; J0131; J1100; J1885; J2250; J2405; J3010

== ENCOUNTER → 2021-04-16 | Outpatient (CLI) | payer OTHER ==
[~2021-04-16] MED LIST changes: +ACET-683 PO; -LIDOCAINE 1% MDV 20ML VIAL SQ PRN; -LR 1,000 ML IV ONE
== END ==
LOC: M PAIN 14:30
PROVIDERS: ATTEND Anesthesiology
DX: M54.16 Radiculopathy, lumbar region (principal); G89.29 Other chronic pain; F17.210 Nicotine dependence, cigarettes, uncomplicated; Z86.59 Personal history of other mental and behavioral disorders; E66.01 Morbid (severe) obesity due to excess calories; Z68.41 Body mass index [BMI] 40.0-44.9, adult; Z79.899 Other long term (current) drug therapy

== ENCOUNTER → 2021-04-30 | Outpatient (CLI) | payer OTHER | LOC: M LABSMTC 10:41 | PROVIDERS: ATTEND Anesthesiology | DX: Z20.828 Contact with and (suspected) exposure to other viral communicable diseases (principal); Z11.59 Encounter for screening for other viral diseases ==

== ENCOUNTER 2021-05-05 10:51 | Day surgery (SDC) | payer OTHER ==
[~2021-05-05] VITALS: Ht 149.9 cm; Wt 66.1 kg
[~2021-05-05 10:51] MED LIST changes: +LIDOCAINE 1% MDV 20ML VIAL SQ PRN; +LR 1,000 ML IV ONE
[2021-05-05] MEDS ORDERED: LIDOCAINE 2% 100MG/5ML SDV (FOR ANES.) As Ordered ONE (15:04)
[2021-05-05] MEDS ORDERED: KETOROLAC 60MG 2ML VIAL As Ordered ONE (15:04)
[2021-05-05] MEDS ORDERED: MIDAZOLAM INJ 2MG/2ML VIAL (J2250 PER 1MG) As Ordered ONE (15:04)
[2021-05-05] MEDS ORDERED: ONDANSETRON 4MG/2ML VIAL As Ordered ONE (15:04)
[2021-05-05] MEDS ORDERED: dexameTHASONE 4 MG/ML 1ML VIAL (J1100 PER 1MG) As Ordered ONE (15:04)
[2021-05-05] MEDS ORDERED: propofoL 200 MG/20 ML VIAL As Ordered ONE (15:04)
[2021-05-05] MEDS ORDERED: fentaNYL 100 MCG/2 ML INJECTION As Ordered ONE ×2 (15:05→17:34)
[2021-05-05] MEDS ORDERED: BUPIVACAINE HCL 0.25% 10ML VIAL As Ordered ONE (16:15)
[2021-05-05] MEDS ORDERED: ONDA4TAB6 PO (16:17)
[2021-05-05] MEDS ORDERED: TRAM50TA2 PO (16:17)
[2021-05-05] MEDS: fentaNYL 100 MCG/2 ML INJECTION IV PRN ×4 (17:34→18:14)
[2021-05-05] MEDS ORDERED: LR 1,000 ML IV SCH (17:40)
[2021-05-05] MEDS ORDERED: oxyCODONE 5MG TAB PO PRN (17:40)
[2021-05-05] MEDS ORDERED: MEPERIDINE INJ 25 MG/ML VIAL (J2175) IV PRN (17:40)
[2021-05-05] MEDS ORDERED: ONDANSETRON 4MG/2ML VIAL IV PRN (17:40)
[2021-05-05] MEDS ORDERED: METOCLOPRAMIDE INJ 10MG/2ML VIAL (J2765 PER 1) As Ordered ONE (18:16)
[2021-05-05] MEDS ORDERED: METOCLOPRAMIDE INJ 10MG/2ML VIAL (J2765 PER 1) IV SCH (18:50)
[2021-05-05 19:18] VITALS: BP 114/79
== END 2021-05-05 19:21 | disposition home or self-care (01) ==
LOC: M SDC 10:51
PROVIDERS: ATTEND Orthopaedic Surgery Hand Surgery
DX: G56.02 Carpal tunnel syndrome, left upper limb (principal); M65.312 Trigger thumb, left thumb; M65.332 Trigger finger, left middle finger; M65.342 Trigger finger, left ring finger; I10 Essential (primary) hypertension; F17.218 Nicotine dependence, cigarettes, with other nicotine-induced disorders; D64.9 Anemia, unspecified; F41.9 Anxiety disorder, unspecified; G43.909 Migraine, unspecified, not intractable, without status migrainosus; Z79.899 Other long term (current) drug therapy
CPT/HCPCS: 26055; 29848; J1100; J1885; J2250; J2405; J2765; J3010

== ENCOUNTER → 2021-07-08 | Outpatient (CLI) | payer OTHER ==
[~2021-07-08] MED LIST changes: +DULO1CAP5; -LIDOCAINE 1% MDV 20ML VIAL SQ PRN; -LR 1,000 ML IV ONE
[2021-07-08 18:12] LABS: BASO % 0.8 % (0.0-1.0); EOS # 0.2 10^3/uL (0.0-0.5); EOS % 4.3 % (0.0-3.0); HEMATOCRIT 40.5 % (36.0-47.0); LYMPH # 1.3 10^3/uL (1.5-5.0); LYMPH % 35.9 % (24.0-44.0); MEAN CORPUSCULAR HEMOGLOBIN 33.3 pg (27.0-33.0); MEAN CORPUSCULAR HGB CONC 34.6 g/dl (32.0-36.5); MEAN CORPUSCULAR VOLUME 96.2 fl (80.0-96.0); MONO # 0.3 10^3/uL (0.0-0.8); MONO % 7.8 % (2.0-8.0); NEUTROPHILS # 1.9 10^3/uL (1.5-8.5); NEUTROPHILS % 50.9 % (36.0-66.0); RED BLOOD COUNT 4.21 10^6/uL (4.00-5.40); WHITE BLOOD COUNT 3.7 10^3/uL (4.0-10.0)
[2021-07-08 18:38] LABS: ALBUMIN 4.2 GM/DL (3.2-5.2); ALT/SGPT 83 U/L (12-78); BILIRUBIN,TOTAL 1.4 MG/DL (0.2-1.0); BLOOD UREA NITROGEN 15 MG/DL (7-18); CALCIUM LEVEL 9.2 MG/DL (8.5-10.1); CARBON DIOXIDE LEVEL 29 MEQ/L (21-32); CHLORIDE LEVEL 104 MEQ/L (98-107); CREATININE FOR GFR 0.91 MG/DL (0.55-1.30); GLOMERULAR FILTRATION RATE > 60.0 (>51); GLUCOSE, FASTING 111 MG/DL (70-100); RHEUMATOID FACTOR QUANT < 10.0 IU/ML (<15.0); SODIUM LEVEL 138 MEQ/L (136-145); TOTAL PROTEIN 7.3 GM/DL (6.4-8.2); URIC ACID 4.4 MG/DL (2.6-6.0)
[2021-07-08 18:39] LABS: C REACTIVE PROTEIN QUANTITATIV 0.93 MG/DL (0.00-0.30)
[2021-07-08 18:56] LABS: PLATELET COUNT, AUTOMATED 118 10^3/uL (150-450)
[2021-07-08 19:58] LABS: ERYTHROCYTE SEDIMENTATION RATE 2 mm/hr (0-30)
[2021-07-13 05:07] LABS: ANA (HEP2) Negative (.); CYCLIC CITRULLINATED PEPTIDE 4 units (0-19)
== END ==
LOC: M LAB 16:33
PROVIDERS: ATTEND Physician Assistant
DX: Z51.81 Encounter for therapeutic drug level monitoring (principal); Z79.899 Other long term (current) drug therapy; Z82.61 Family history of arthritis

== ENCOUNTER → 2021-07-26 | Outpatient (CLI) | payer OTHER | LOC: M PAIN 11:45 | PROVIDERS: ATTEND Nurse Practitioner Family | DX: M51.16 Intervertebral disc disorders with radiculopathy, lumbar region (principal); G89.29 Other chronic pain; F17.210 Nicotine dependence, cigarettes, uncomplicated; Z86.59 Personal history of other mental and behavioral disorders; Z79.899 Other long term (current) drug therapy ==

== ENCOUNTER 2021-08-02 17:14 | Emergency (ER) | payer OTHER ==
[~2021-08-02] VITALS: Ht 149.9 cm; Wt 65.2 kg
[~2021-08-02 17:14] MED LIST changes: -DULO1CAP5
[2021-08-02] MEDS ORDERED: DULO1CAP5 (17:36)
[2021-08-02] MEDS ORDERED: diazePAM 5MG TABLET PO ONE (20:25)
[2021-08-02] MEDS ORDERED: KETOROLAC 30 MG/ML 1ML VIAL IM ONE (20:25)
[2021-08-02] MEDS ORDERED: LIDOCAINE 5% (LIDODERM) PATCH TD ONE (20:25)
[2021-08-02] MEDS ORDERED: **NOTE PATIENT COMMENT** MISC XX SCH (21:00)
[2021-08-02 23:02] VITALS: BP 156/82
== END 2021-08-02 23:04 | disposition home or self-care (01) ==
LOC: M ED 17:14
DX: M54.50 Low back pain, unspecified (principal); R39.81 Functional urinary incontinence; F10.10 Alcohol abuse, uncomplicated; Z79.899 Other long term (current) drug therapy
CPT/HCPCS: 72131; 81001; 96372; 99283; J1885

== ENCOUNTER → 2021-09-28 | Outpatient (CLI) | payer OTHER ==
[~2021-09-28] MED LIST changes: +DULO1CAP5
== END ==
LOC: M PAIN 14:30
PROVIDERS: ATTEND Anesthesiology
DX: M51.16 Intervertebral disc disorders with radiculopathy, lumbar region (principal); D64.9 Anemia, unspecified; F41.9 Anxiety disorder, unspecified; R51.9 Headache, unspecified; R03.0 Elevated blood-pressure reading, without diagnosis of hypertension; M54.2 Cervicalgia; Z87.891 Personal history of nicotine dependence; Z79.899 Other long term (current) drug therapy

== ENCOUNTER → 2021-11-03 | Outpatient (CLI) | payer OTHER ==
[~2021-11-03] MED LIST changes: -DULO1CAP5; +DULO1CAP5 PO; +NAPR500T6 PO
== END ==
LOC: M LAB 13:42
PROVIDERS: ATTEND Anesthesiology
DX: I10 Essential (primary) hypertension (principal)

== ENCOUNTER → 2021-11-03 | Outpatient (CLI) | payer OTHER ==
[~2021-11-03] MED LIST changes: -NAPR500T6 PO
== END ==
LOC: M LABSMTC 11:39
PROVIDERS: ATTEND Anesthesiology
DX: Z01.812 Encounter for preprocedural laboratory examination (principal); Z20.822 Contact with and (suspected) exposure to COVID-19

== ENCOUNTER 2021-11-08 06:35 | Day surgery (SDC) | payer OTHER ==
[~2021-11-08] VITALS: Ht 149.9 cm; Wt 67.3 kg
[2021-11-08] MEDS ORDERED: LR 1,000 ML IV SCH ×2 (07:15→09:30)
[2021-11-08] MEDS ORDERED: ONDANSETRON 4MG 2ML VIAL As Ordered ONE (08:02)
[2021-11-08] MEDS ORDERED: LIDOCAINE 2% 100MG/5ML SDV (FOR ANES.) As Ordered ONE (08:02)
[2021-11-08] MEDS ORDERED: MIDAZOLAM INJ 2MG/2ML VIAL (J2250 PER 1MG) As Ordered ONE (08:02)
[2021-11-08] MEDS ORDERED: propofoL 200 MG/20 ML VIAL As Ordered ONE (08:02)
[2021-11-08] MEDS ORDERED: dexameTHASONE 4 MG/ML 1ML VIAL (J1100 PER 1MG) As Ordered ONE (08:02)
[2021-11-08] MEDS ORDERED: METOCLOPRAMIDE INJ 10MG/2ML VIAL (J2765 PER 1) As Ordered ONE (08:02)
[2021-11-08] MEDS ORDERED: KETOROLAC 60MG 2ML VIAL As Ordered ONE (08:02)
[2021-11-08] MEDS ORDERED: fentaNYL 100 MCG/2 ML INJECTION As Ordered ONE (08:03)
[2021-11-08] MEDS ORDERED: LIDOCAINE W/EPINEPHRINE 1% 20ML VIAL As Ordered ONE (08:24)
[2021-11-08] MEDS ORDERED: oxyCODONE 5MG TAB PO PRN (09:30)
[2021-11-08] MEDS ORDERED: fentaNYL 100 MCG/2 ML INJECTION IV PRN (09:30)
[2021-11-08] MEDS ORDERED: ONDANSETRON 4MG 2ML VIAL IV PRN (09:30)
[2021-11-08] MEDS ORDERED: ONDA4TAB6 PO (09:49)
[2021-11-08] MEDS ORDERED: NAPR500T6 PO (09:49)
[2021-11-08 12:00] VITALS: BP 112/59
== END 2021-11-08 12:11 | disposition home or self-care (01) ==
LOC: M SDC 06:35
PROVIDERS: ATTEND Orthopaedic Surgery Hand Surgery
DX: G56.22 Lesion of ulnar nerve, left upper limb (principal); I10 Essential (primary) hypertension; G43.909 Migraine, unspecified, not intractable, without status migrainosus; F41.9 Anxiety disorder, unspecified; Z79.899 Other long term (current) drug therapy
CPT/HCPCS: 29999; J1100; J1885; J2250; J2405; J2765; J3010

== ENCOUNTER → 2021-11-11 | Outpatient (CLI) | payer OTHER ==
[~2021-11-11] MED LIST changes: +NAPR500T6 PO
== END ==
LOC: M PLAIMG 08:03
PROVIDERS: ATTEND Orthopaedic Surgery
DX: M50.221 Other cervical disc displacement at C4-C5 level (principal); M50.222 Other cervical disc displacement at C5-C6 level; M50.223 Other cervical disc displacement at C6-C7 level; M48.02 Spinal stenosis, cervical region; M47.812 Spondylosis without myelopathy or radiculopathy, cervical region

== ENCOUNTER → 2021-12-23 | Outpatient (CLI) | payer OTHER | LOC: M PAIN 14:15 | PROVIDERS: ATTEND Nurse Practitioner Family | DX: M51.16 Intervertebral disc disorders with radiculopathy, lumbar region (principal); G89.29 Other chronic pain; I10 Essential (primary) hypertension; Z86.59 Personal history of other mental and behavioral disorders; Z87.891 Personal history of nicotine dependence; Z79.899 Other long term (current) drug therapy ==

== ENCOUNTER → 2021-12-28 | Outpatient (REF) | payer OTHER ==
[2021-12-28 21:32] LABS: HEMOGLOBIN A1c 10.9 % (4.0-6.0)
[2021-12-28 22:59] LABS: HEMOGLOBIN 13.4 g/dl (12.0-15.5); MEAN CORPUSCULAR VOLUME 93.9 fl (80.0-96.0); PLATELET COUNT, AUTOMATED 252 10^3/uL (150-450); RED BLOOD COUNT 3.94 10^6/uL (4.00-5.40)
[2021-12-28 23:05] LABS: MEAN CORPUSCULAR HGB CONC 36.2 g/dl (32.0-36.5)
[2021-12-28 23:14] LABS: ATYPICAL LYMPH 4 % (0-5); BASOPHILS 1 % (0-1); EOSINOPHILS 2 % (0-3); LYMPHOCYTES 51 % (16-44); MONOCYTES 7 % (0-5); NEUTROPHILS 35 % (28-66)
[2021-12-28 23:15] LABS: PLATELET ESTIMATE NORMAL (NORMAL)
[2021-12-28 23:16] LABS: ANISOCYTOSIS 1+
[2021-12-28 23:59] LABS: ALBUMIN 4.2 G/DL (3.2-5.2); ALT/SGPT 56 U/L (7.0-40); BILIRUBIN,TOTAL 0.6 MG/DL (0.3-1.2); BLOOD UREA NITROGEN 10 MG/DL (9-23); CALCIUM LEVEL 9.1 MG/DL (8.5-10.1); CARBON DIOXIDE LEVEL 17 MMOL/L (20-31); CHLORIDE LEVEL 89 MMOL/L (98-107); CHOLESTEROL LEVEL 494 MG/DL (<200); CREATININE FOR GFR 0.59 MG/DL (0.55-1.30); FERRITIN 414.4 NG/ML (7.3-270.7); GLOMERULAR FILTRATION RATE > 60.0 (>51); GLUCOSE, FASTING 516 MG/DL (60-100); HDL CHOLESTEROL 19.6 MG/DL (>40); IRON (FE) 67 UG/DL (50-170); NON-HDL-C 474 MG/DL; PERCENT SATURATION 31.5 % (13.2-45.0); POTASSIUM SERUM 4.4 MMOL/L (3.5-5.1); SODIUM LEVEL 123 MMOL/L (136-145); TOTAL IRON BINDING CAPACITY 213 UG/DL (250-425); TRIGLYCERIDES LEVEL 3792 MG/DL (<150)
== END ==
LOC: M WUC 15:18
PROVIDERS: ATTEND Nurse Practitioner Family
DX: I10 Essential (primary) hypertension (principal); D50.9 Iron deficiency anemia, unspecified

== ENCOUNTER → 2021-12-29 | Outpatient (REF) | payer OTHER ==
[2021-12-29 14:00] LABS: INR 0.94; PROTHROMBIN TIME 12.8 SECONDS (12.5-14.5)
[2021-12-29 16:26] LABS: ALBUMIN 4.5 G/DL (3.2-5.2); ALT/SGPT 60 U/L (7.0-40); BILIRUBIN,TOTAL 0.4 MG/DL (0.3-1.2); BLOOD UREA NITROGEN 10 MG/DL (9-23); CALCIUM LEVEL 9.1 MG/DL (8.5-10.1); CARBON DIOXIDE LEVEL 17 MMOL/L (20-31); CHLORIDE LEVEL 91 MMOL/L (98-107); CREATININE FOR GFR 0.49 MG/DL (0.55-1.30); FREE T4 1.16 NG/DL (0.89-1.76); GLOMERULAR FILTRATION RATE > 60.0 (>51); GLUCOSE, FASTING 350 MG/DL (60-100); HEPATITIS B SURFACE ANTIBODY NEGATIVE (POSITIVE); HEPATITIS B SURFACE ANTIGEN NEGATIVE (NEGATIVE); HEPATITIS C VIRUS ABY INDEX 0.1 INDEX (<0.8); POTASSIUM SERUM 3.6 MMOL/L (3.5-5.1); SODIUM LEVEL 127 MMOL/L (136-145); THYROID STIMULATING HORMONE 6.437 uIU/ML (0.55-4.78); TOTAL PROTEIN 6.8 G/DL (5.7-8.2)
== END ==
LOC: M WUC 11:42
PROVIDERS: ATTEND Registered Nurse
DX: R94.5 Abnormal results of liver function studies (principal)

== ENCOUNTER → 2022-01-20 | Outpatient (CLI) | payer OTHER | LOC: M RAD 08:02 | PROVIDERS: ATTEND Registered Nurse | DX: R94.5 Abnormal results of liver function studies (principal); R10.11 Right upper quadrant pain; R93.2 Abnormal findings on diagnostic imaging of liver and biliary tract ==

== ENCOUNTER 2022-02-14 12:47 | Observation (INO) | payer OTHER ==
[~2022-02-14] VITALS: Ht 149.9 cm; Wt 59.3 kg
[2022-02-14] MEDS ORDERED: OZEM2INJ (13:28)
[2022-02-14] MEDS ORDERED: METF-838 (13:28)
[2022-02-14] MEDS ORDERED: ALBU8.5H (13:28)
[2022-02-14] MEDS ORDERED: LOSA50TA5 (13:28)
[2022-02-14] MEDS ORDERED: LEVOTAB10 (13:28)
[2022-02-14 16:21] LABS: BASO # 0.1 10^3/uL (0.0-0.2); BASO % 1.2 % (0.0-1.0); EOS # 0.1 10^3/uL (0.0-0.5); EOS % 2.4 % (0.0-3.0); HEMATOCRIT 40.3 % (36.0-47.0); HEMOGLOBIN 14.3 g/dl (12.0-15.5); LYMPH % 46.8 % (24.0-44.0); MEAN CORPUSCULAR HGB CONC 35.5 g/dl (32.0-36.5); MEAN CORPUSCULAR VOLUME 93.1 fl (80.0-96.0); MONO # 0.2 10^3/uL (0.0-0.8); MONO % 5.5 % (2.0-8.0); NEUTROPHILS # 1.9 10^3/uL (1.5-8.5); NEUTROPHILS % 44.1 % (36.0-66.0); PLATELET COUNT, AUTOMATED 146 10^3/uL (150-450); RED BLOOD COUNT 4.33 10^6/uL (4.00-5.40); WHITE BLOOD COUNT 4.2 10^3/uL (4.0-10.0)
[2022-02-14 16:23] LABS: VENOUS BASE EXCESS -2.4 (-2.0-2.0); VENOUS HCO3 23.9 MEQ/L (23.0-27.0); VENOUS O2 SATURATION 64.4 % (60.0-80.0); VENOUS PARTIAL PRESSURE CO2 46.3 mmHg (38.0-50.0); VENOUS PARTIAL PRESSURE O2 35.1 mmHg (30.0-50.0); VENOUS STANDARD HCO3 21.7 MEQ/L; VENOUS TOTAL CO2 25.3 MEQ/L (24.0-28.0)
[2022-02-14] MEDS ORDERED: NS 1,000 ML IV ONE (16:30)
[2022-02-14 16:46] LABS: ACETONE/KETONE 2.6 MMOL/L (0.02-0.27)
[2022-02-14 17:43] LABS: THYROID STIMULATING HORMONE 2.284 uIU/ML (0.55-4.78)
[2022-02-14 17:46] LABS: HEMOGLOBIN A1c 12.4 % (4.0-6.0)
[2022-02-14 19:03] LABS: OSMOLALITY SERUM 295 MOSM/KG (275-295)
[2022-02-14 19:04] LABS: CPK CREATINE PHOSPHOKINASE 69 U/L (34-145)
[2022-02-14 19:08] LABS: CK-MB VALUE MASS < 1.0 NG/ML (<3.6); MB/CK RELATIVE INDEX 1.44 (< OR =4)
[2022-02-14 19:13] LABS: RSV AMPLIFICATION NEGATIVE (NEGATIVE)
[2022-02-14] MEDS ORDERED: ACETAMINOPHEN 500 MG TAB PO ONE (19:15)
[2022-02-14 19:53] LABS: AMPHETAMINES LEVEL URINE NEGATIVE (NEGATIVE); BARBITURATES URINE NEGATIVE (NEGATIVE); BENZODIAZEPINES URINE NEGATIVE (NEGATIVE); CANNABINOIDS URINE NEGATIVE (NEGATIVE); COCAINE METABOLITE URINE NEGATIVE (NEGATIVE); METHADONE URINE NEGATIVE (NEGATIVE); OPIATES URINE NEGATIVE (NEGATIVE); PHENCYCLIDINE URINE NEGATIVE (NEGATIVE)
[2022-02-14 20:19] LABS: CK-MB VALUE MASS < 1.0 NG/ML (<3.6)
[2022-02-14 20:20] LABS: CPK CREATINE PHOSPHOKINASE 60 U/L (34-145); MB/CK RELATIVE INDEX 1.66 (< OR =4)
[2022-02-14] MEDS ORDERED: INSULIN LISPRO (NovoLOG) PER UNIT SC SCH (21:00)
[2022-02-14 21:44] LABS: CK-MB VALUE MASS < 1.0 NG/ML (<3.6)
[2022-02-14 21:45] LABS: CPK CREATINE PHOSPHOKINASE 62 U/L (34-145); MB/CK RELATIVE INDEX 1.61 (< OR =4)
[2022-02-14] MEDS ORDERED: HumuLIN R (REGULAR) INSULIN (NovoLIN R) **100U/ML** PER UNIT IV STA (22:31)
[2022-02-14] MEDS ORDERED: GABA-283 PO (22:33)
[2022-02-14] MEDS ORDERED: ONDA-195 PO (22:33)
[2022-02-14] MEDS ORDERED: OZEM2INJ SC (22:33)
[2022-02-14] MEDS ORDERED: DULO30CA9 PO (22:33)
[2022-02-14] MEDS ORDERED: METF-838 PO (22:33)
[2022-02-14] MEDS ORDERED: LOSA50TA5 PO (22:33)
[2022-02-14] MEDS ORDERED: ALBU8.5H INH (22:33)
[2022-02-14] MEDS ORDERED: metFORMIN XR 500MG TAB *GLUCOPHAGE XR PO SCH (22:35)
[2022-02-14] MEDS ORDERED: DEXTROSE 50% 50ML SYRINGE IV PRN (22:35)
[2022-02-14] MEDS ORDERED: GLUCOSE 4GM CHEW TABLET PO PRN (22:35)
[2022-02-14] MEDS ORDERED: GLUCAGON INJ 1MG VIAL SC PRN (22:35)
[2022-02-14] MEDS ORDERED: DULoxetine 30MG CAPSULE (CYMBALTA) PO ONE (22:35)
[2022-02-14] MEDS ORDERED: LOSARTAN 50MG TABLET PO ONE (22:35)
[2022-02-14] MEDS ORDERED: HOME MED LIST COMPLETE! XX SCH (22:35)
[2022-02-14] MEDS ORDERED: hydroCHLOROthiazide 12.5 MG CAPSULE PO ONE (22:35)
[2022-02-15] MEDS: ACETAMINOPHEN TAB 650MG DOSE (2X325MG) PO PRN ×2 (01:15→07:59)
[2022-02-15] MEDS: ONDANSETRON 4MG ORAL DISINTEGRATING TAB PO PRN ×2 (06:04→12:08)
[2022-02-15 06:56] LABS: ALBUMIN 3.5 G/DL (3.2-5.2); ALKALINE PHOSPHATASE 209 U/L (46-116); ALT/SGPT 19 U/L (7.0-40); AST/SGOT 23 U/L (<34); BILIRUBIN,TOTAL 0.7 MG/DL (0.3-1.2); BLOOD UREA NITROGEN 8 MG/DL (9-23); CALCIUM LEVEL 9.2 MG/DL (8.5-10.1); CARBON DIOXIDE LEVEL 26 MMOL/L (20-31); CHLORIDE LEVEL 99 MMOL/L (98-107); CREATININE FOR GFR 0.52 MG/DL (0.55-1.30); GLOMERULAR FILTRATION RATE > 60.0 (>51); GLUCOSE, FASTING 307 MG/DL (60-100); POTASSIUM SERUM 3.2 MMOL/L (3.5-5.1); SODIUM LEVEL 132 MMOL/L (136-145); TOTAL PROTEIN 6.2 G/DL (5.7-8.2)
[2022-02-15] MEDS ORDERED: POTASSIUM CHLORIDE 10MEQ SR TABLET PO ONE (07:30)
[2022-02-15] MEDS: INSULIN LISPRO (NovoLOG) PER UNIT SC SCH ×2 (08:02→12:07)
[2022-02-15] MEDS ORDERED: GABAPENTIN 400MG CAP PO SCH (09:00)
[2022-02-15] MEDS ORDERED: LEVEMIR (INSULIN DETEMIR) 1 UNITS/0.01ML SC SCH (09:00)
[2022-02-15] MEDS ORDERED: LANTINJ4 SC (09:31)
[2022-02-15] MEDS ORDERED: amLODIPine 5 MG TAB PO ONE (09:35)
[2022-02-15 12:08] VITALS: BP 161/85
[2022-02-15] MEDS ORDERED: AMLO1TAB24 PO (13:24)
[2022-02-15 14:36] VITALS: BP 148/80
== END 2022-02-15 15:30 | disposition home or self-care (01) ==
LOC: M ED 12:47 → M ED INP 12:48
PROVIDERS: ADMIT Internal Medicine; ATTEND Internal Medicine
DX: E11.65 Type 2 diabetes mellitus with hyperglycemia (principal); I10 Essential (primary) hypertension; D69.6 Thrombocytopenia, unspecified; Z79.4 Long term (current) use of insulin; Z79.84 Long term (current) use of oral hypoglycemic drugs; Z79.899 Other long term (current) drug therapy; Z87.891 Personal history of nicotine dependence

== ENCOUNTER → 2022-03-04 | Outpatient (CLI) | payer OTHER ==
[~2022-03-04] MED LIST changes: +ALBU8.5H; +AMLO1TAB24 PO; +DULO30CA9 PO; +LANTINJ4 SC; +LEVOTAB10; +LOSA50TA5; +LOSA50TA5 PO; +METF-838; +METF-838 PO; +ONDA-195 PO; +OZEM2INJ; +OZEM2INJ SC
[2022-03-04 17:07] LABS: LIPASE 109 U/L (12-53)
[2022-03-04 17:09] LABS: ALBUMIN 3.9 G/DL (3.2-5.2); ALKALINE PHOSPHATASE 145 U/L (46-116); ALT/SGPT 20 U/L (7.0-40); AST/SGOT 19 U/L (<34); BILIRUBIN,TOTAL 0.8 MG/DL (0.3-1.2); BLOOD UREA NITROGEN 12 MG/DL (9-23); CALCIUM LEVEL 9.1 MG/DL (8.5-10.1); CARBON DIOXIDE LEVEL 27 MMOL/L (20-31); CHLORIDE LEVEL 106 MMOL/L (98-107); GLOMERULAR FILTRATION RATE > 60.0 (>51); GLUCOSE, FASTING 203 MG/DL (60-100); SODIUM LEVEL 140 MMOL/L (136-145); TOTAL PROTEIN 7.1 G/DL (5.7-8.2)
[2022-03-04 17:32] LABS: MAU/CREAT RATIO 7.3 MCG/MG (0.0-30.0)
== END ==
LOC: M WUC 13:08
PROVIDERS: ATTEND Nurse Practitioner Family
DX: E11.65 Type 2 diabetes mellitus with hyperglycemia (principal); R10.13 Epigastric pain

== ENCOUNTER → 2022-03-16 | Outpatient (REF) | payer OTHER ==
[2022-03-16 18:44] LABS: CREATININE, URINE 176.2 MG/DL; MAU/CREAT RATIO 5.6 MCG/MG (0.0-30.0)
== END ==
LOC: M LAB REF 17:37
PROVIDERS: ATTEND Registered Nurse
DX: R80.9 Proteinuria, unspecified (principal)

== ENCOUNTER → 2022-03-17 | Outpatient (CLI) | payer OTHER ==
[~2022-03-17] MED LIST changes: +GASTROGRAFIN SOLUTION 30ML As Ordered ONE; +ISOVUE-370 76% 100ML VIAL As Ordered ONE
== END ==
LOC: M RAD 16:04
PROVIDERS: ATTEND Registered Nurse
DX: R11.10 Vomiting, unspecified (principal); K76.0 Fatty (change of) liver, not elsewhere classified

== ENCOUNTER → 2022-03-24 | Outpatient (CLI) | payer OTHER ==
[~2022-03-24] MED LIST changes: -GASTROGRAFIN SOLUTION 30ML As Ordered ONE; -ISOVUE-370 76% 100ML VIAL As Ordered ONE
[2022-03-24 16:55] LABS: LIPASE 39 U/L (12-53)
[2022-03-24 16:59] LABS: BASO % 0.7 % (0.0-1.0); EOS # 0.1 10^3/uL (0.0-0.5); EOS % 2.3 % (0.0-3.0); HEMATOCRIT 42.8 % (36.0-47.0); LYMPH # 2.2 10^3/uL (1.5-5.0); LYMPH % 36.3 % (24.0-44.0); MEAN CORPUSCULAR HEMOGLOBIN 30.4 pg (27.0-33.0); MEAN CORPUSCULAR HGB CONC 32.7 g/dl (32.0-36.5); MONO # 0.3 10^3/uL (0.0-0.8); MONO % 5.6 % (2.0-8.0); NEUTROPHILS # 3.4 10^3/uL (1.5-8.5); NEUTROPHILS % 54.9 % (36.0-66.0); PLATELET COUNT, AUTOMATED 175 10^3/uL (150-450); WHITE BLOOD COUNT 6.1 10^3/uL (4.0-10.0)
[2022-03-24 17:02] LABS: ALBUMIN 4.4 G/DL (3.2-5.2); ALKALINE PHOSPHATASE 139 U/L (46-116); ALT/SGPT 23 U/L (7.0-40); AST/SGOT 28 U/L (<34); BILIRUBIN,TOTAL 0.8 MG/DL (0.3-1.2); BLOOD UREA NITROGEN 16 MG/DL (9-23); CALCIUM LEVEL 9.5 MG/DL (8.5-10.1); CARBON DIOXIDE LEVEL 23 MMOL/L (20-31); CHLORIDE LEVEL 106 MMOL/L (98-107); CHOLESTEROL LEVEL 165 MG/DL (<200); CHOLESTEROL RISK RATIO 4.02 (<5); CREATININE FOR GFR 0.93 MG/DL (0.55-1.30); GLOMERULAR FILTRATION RATE > 60.0 (>51); GLUCOSE, FASTING 122 MG/DL (60-100); NON-HDL-C 124 MG/DL; POTASSIUM SERUM 4.1 MMOL/L (3.5-5.1); SODIUM LEVEL 140 MMOL/L (136-145); TOTAL PROTEIN 7.3 G/DL (5.7-8.2); TRIGLYCERIDES LEVEL 160 MG/DL (<150)
== END ==
LOC: M WUC 13:15
PROVIDERS: ATTEND Registered Nurse
DX: E78.2 Mixed hyperlipidemia (principal); I10 Essential (primary) hypertension; R10.10 Upper abdominal pain, unspecified

== ENCOUNTER → 2022-04-06 | Outpatient (CLI) | payer OTHER ==
[2022-04-06 16:42] LABS: BASO % 0.7 % (0.0-1.0); EOS # 0.2 10^3/uL (0.0-0.5); EOS % 2.8 % (0.0-3.0); HEMOGLOBIN 12.3 g/dl (12.0-15.5); LYMPH # 2.7 10^3/uL (1.5-5.0); LYMPH % 44.9 % (24.0-44.0); MEAN CORPUSCULAR HEMOGLOBIN 30.2 pg (27.0-33.0); MEAN CORPUSCULAR HGB CONC 32.4 g/dl (32.0-36.5); MEAN CORPUSCULAR VOLUME 93.4 fl (80.0-96.0); MONO # 0.4 10^3/uL (0.0-0.8); MONO % 5.8 % (2.0-8.0); NEUTROPHILS # 2.8 10^3/uL (1.5-8.5); NEUTROPHILS % 45.6 % (36.0-66.0); PLATELET COUNT, AUTOMATED 183 10^3/uL (150-450); RED BLOOD COUNT 4.07 10^6/uL (4.00-5.40)
[2022-04-06 17:05] LABS: ERYTHROCYTE SEDIMENTATION RATE 19 mm/hr (0-30)
[2022-04-06 17:11] LABS: C REACTIVE PROTEIN QUANTITATIV < 0.40 MG/DL (<1.0)
[2022-04-06 17:12] LABS: ALKALINE PHOSPHATASE 132 U/L (46-116); ALT/SGPT 21 U/L (7.0-40); AST/SGOT 26 U/L (<34); BILIRUBIN,TOTAL 0.4 MG/DL (0.3-1.2); BLOOD UREA NITROGEN 16 MG/DL (9-23); CALCIUM LEVEL 9.1 MG/DL (8.5-10.1); CARBON DIOXIDE LEVEL 27 MMOL/L (20-31); CHLORIDE LEVEL 109 MMOL/L (98-107); CREATININE FOR GFR 0.83 MG/DL (0.55-1.30); GLOMERULAR FILTRATION RATE > 60.0 (>51); GLUCOSE, FASTING 106 MG/DL (60-100); POTASSIUM SERUM 3.9 MMOL/L (3.5-5.1); SODIUM LEVEL 142 MMOL/L (136-145); TOTAL PROTEIN 6.8 G/DL (5.7-8.2)
== END ==
LOC: M WUC 14:39
PROVIDERS: ATTEND Internal Medicine Rheumatology
DX: M25.50 Pain in unspecified joint (principal); M35.00 Sjogren syndrome, unspecified

== ENCOUNTER → 2022-04-28 | Outpatient (CLI) | payer OTHER ==
[2022-04-28 19:23] LABS: FREE T4 0.79 NG/DL (0.89-1.76); THYROID STIMULATING HORMONE 2.718 uIU/ML (0.55-4.78)
[2022-04-28 19:41] LABS: HEPATITIS B SURFACE ANTIGEN NEGATIVE (NEGATIVE)
[2022-04-28 19:53] LABS: HIV 1&2 SCREEN CENTAUR NEGATIVE (NEGATIVE)
[2022-04-28 20:02] LABS: HEPATITIS B CORE ANTIBODY IGM NEGATIVE (NEGATIVE); HEPATITIS C VIRUS ABY INDEX 0.1 INDEX (<0.8)
== END ==
LOC: M WHC 16:00 → M PLALAB 16:00
PROVIDERS: ATTEND Nurse Practitioner Family
DX: N64.4 Mastodynia (principal); N64.3 Galactorrhea not associated with childbirth; Z11.3 Encounter for screening for infections with a predominantly sexual mode of transmission; R10.2 Pelvic and perineal pain; N73.9 Female pelvic inflammatory disease, unspecified
CPT/HCPCS: 36415; 84146; 84439; 84443; 86705; 86780; 86803; 87086; 87340; 87389; G0463

== ENCOUNTER → 2022-05-10 | Outpatient (CLI) | payer OTHER ==
[2022-05-10 23:00] LABS: BLOOD UREA NITROGEN 12 MG/DL (9-23); CALCIUM LEVEL 9.3 MG/DL (8.5-10.1); CARBON DIOXIDE LEVEL 28 MMOL/L (20-31); CHLORIDE LEVEL 108 MMOL/L (98-107); CREATININE FOR GFR 0.74 MG/DL (0.55-1.30); GLOMERULAR FILTRATION RATE > 60.0 (>51); GLUCOSE, FASTING 38 MG/DL (60-100); POTASSIUM SERUM 3.6 MMOL/L (3.5-5.1); SODIUM LEVEL 143 MMOL/L (136-145)
== END ==
LOC: M WUC 15:55
PROVIDERS: ATTEND Nurse Practitioner Family
DX: E11.65 Type 2 diabetes mellitus with hyperglycemia (principal)

== ENCOUNTER → 2022-05-27 | Outpatient (CLI) | payer OTHER ==
[~2022-05-27] MED LIST changes: +AMLO1TAB25 PO; +JARD1TAB PO; +LOSA100T8 PO; +PANT40TA29 PO; +SUMA25TA3 PO
== END ==
LOC: M SOG 15:26
PROVIDERS: ATTEND Orthopaedic Surgery
DX: M47.816 Spondylosis without myelopathy or radiculopathy, lumbar region (principal); M25.562 Pain in left knee; M25.561 Pain in right knee

== ENCOUNTER → 2022-06-01 | Outpatient (CLI) | payer OTHER ==
[2022-06-01 16:48] LABS: BASO % 0.7 % (0.0-1.0); EOS # 0.2 10^3/uL (0.0-0.5); EOS % 2.8 % (0.0-3.0); HEMATOCRIT 37.8 % (36.0-47.0); HEMOGLOBIN 12.3 g/dl (12.0-15.5); LYMPH # 2.3 10^3/uL (1.5-5.0); LYMPH % 42.9 % (24.0-44.0); MEAN CORPUSCULAR HEMOGLOBIN 29.4 pg (27.0-33.0); MEAN CORPUSCULAR HGB CONC 32.5 g/dl (32.0-36.5); MEAN CORPUSCULAR VOLUME 90.4 fl (80.0-96.0); MONO # 0.4 10^3/uL (0.0-0.8); MONO % 8.2 % (2.0-8.0); NEUTROPHILS # 2.4 10^3/uL (1.5-8.5); PLATELET COUNT, AUTOMATED 202 10^3/uL (150-450); RED BLOOD COUNT 4.18 10^6/uL (4.00-5.40); WHITE BLOOD COUNT 5.4 10^3/uL (4.0-10.0)
[2022-06-01 16:55] LABS: ALBUMIN 3.9 G/DL (3.2-5.2); ALKALINE PHOSPHATASE 111 U/L (46-116); ALT/SGPT 17 U/L (7.0-40); AST/SGOT 24 U/L (<34); BILIRUBIN,TOTAL 0.4 MG/DL (0.3-1.2); BLOOD UREA NITROGEN 15 MG/DL (9-23); CALCIUM LEVEL 9.8 MG/DL (8.5-10.1); CARBON DIOXIDE LEVEL 28 MMOL/L (20-31); CHLORIDE LEVEL 104 MMOL/L (98-107); CREATININE FOR GFR 0.72 MG/DL (0.55-1.30); GLOMERULAR FILTRATION RATE > 60.0 (>51); GLUCOSE, FASTING 98 MG/DL (60-100); POTASSIUM SERUM 4.2 MMOL/L (3.5-5.1); SODIUM LEVEL 138 MMOL/L (136-145); TOTAL PROTEIN 7.5 G/DL (5.7-8.2)
[2022-06-01 17:09] LABS: HEMOGLOBIN A1c 5.6 % (4.0-6.0)
== END ==
LOC: M WUC 14:02
PROVIDERS: ATTEND Registered Nurse
DX: Z01.818 Encounter for other preprocedural examination (principal)

== ENCOUNTER → 2022-06-16 | Outpatient (REF) | payer OTHER ==
[~2022-06-16] MED LIST changes: +FLOM0.4C39 PO; +IBUP1TAB7 PO; +INSULANT SC; +LEVOTAB10 PO; +MACR100C43 PO; +MECL-86 PO; +MECL1TAB31 PO; +OXYB5TAB10 PO; +OXYC1TAB23 PO; +PYRI1TAB5 PO; +SUCR1TAB56 PO; +TAMS1CAP17 PO
[2022-06-16 16:04] LABS: APPEARANCE, URINE HAZY (CLEAR); BACTERIA, URINE AUTO NEGATIVE (NEGATIVE); BILIRUBIN, URINE AUTO NEGATIVE (NEGATIVE); BLOOD, URINE BLOOD NEGATIVE (NEGATIVE); CALCIUM OXALATE CRYSTALS MODERATE; COLOR, URINE YELLOW (YELLOW); GLUCOSE, URINE (UA) AUTO NEGATIVE (NEGATIVE); KETONE, URINE AUTO TRACE mg/dL (NEGATIVE); LEUKOCYTE ESTERASE, URINE AUTO NEGATIVE (NEGATIVE); MUCUS, URINE SMALL (NEGATIVE); NITRITE, URINE AUTO NEGATIVE (NEGATIVE); PROTEIN, URINE AUTO 1+ mg/dL (NEGATIVE); RBC, URINE AUTO 0 /HPF (0-3); SPECIFIC GRAVITY URINE AUTO 1.028 (1.002-1.035); SQUAMOUS EPITHELIAL CELL UR AU 5 /HPF (0-6); UROBILINOGEN, URINE AUTO 0.2 mg/dL (0.0-2.0); WBC, URINE AUTO 1 /HPF (0-3)
== END ==
LOC: M LABSMT 13:32
PROVIDERS: ATTEND Urology
DX: R31.0 Gross hematuria (principal)
CPT/HCPCS: 81001; 87086; G0463

== ENCOUNTER → 2022-06-17 | Outpatient (CLI) | payer OTHER ==
[~2022-06-17] MED LIST changes: -FLOM0.4C39 PO; -IBUP1TAB7 PO; -INSULANT SC; -LEVOTAB10 PO; -MACR100C43 PO; -MECL-86 PO; -MECL1TAB31 PO; -OXYB5TAB10 PO; -OXYC1TAB23 PO; -PYRI1TAB5 PO; -SUCR1TAB56 PO; -TAMS1CAP17 PO
== END ==
LOC: M PLAIMG 13:09
PROVIDERS: ATTEND Urology
DX: N20.0 Calculus of kidney (principal); K57.90 Diverticulosis of intestine, part unspecified, without perforation or abscess without bleeding; M47.817 Spondylosis without myelopathy or radiculopathy, lumbosacral region

== ENCOUNTER 2022-07-05 21:20 | Observation (INO) | payer OTHER ==
[~2022-07-05] VITALS: Ht 149.9 cm; Wt 61.5 kg
[2022-07-05] MEDS ORDERED: MECL1TAB31 PO (21:29)
[2022-07-05 22:13] LABS: BASO % 0.3 % (0.0-1.0); EOS # 0.1 10^3/uL (0.0-0.5); EOS % 1.5 % (0.0-3.0); HEMATOCRIT 37.8 % (36.0-47.0); HEMOGLOBIN 12.6 g/dl (12.0-15.5); LYMPH # 1.9 10^3/uL (1.5-5.0); LYMPH % 32.6 % (24.0-44.0); MEAN CORPUSCULAR HEMOGLOBIN 28.7 pg (27.0-33.0); MEAN CORPUSCULAR HGB CONC 33.3 g/dl (32.0-36.5); MEAN CORPUSCULAR VOLUME 86.1 fl (80.0-96.0); MONO # 0.3 10^3/uL (0.0-0.8); MONO % 5.8 % (2.0-8.0); NEUTROPHILS # 3.5 10^3/uL (1.5-8.5); NEUTROPHILS % 59.6 % (36.0-66.0); PLATELET COUNT, AUTOMATED 156 10^3/uL (150-450); RED BLOOD COUNT 4.39 10^6/uL (4.00-5.40); WHITE BLOOD COUNT 5.9 10^3/uL (4.0-10.0)
[2022-07-05 22:46] LABS: ALBUMIN 4.2 G/DL (3.2-5.2); BILIRUBIN,DIRECT 0.2 MG/DL (<0.4); BILIRUBIN,TOTAL 0.6 MG/DL (0.3-1.2); CALCIUM LEVEL 9.8 MG/DL (8.5-10.1); CREATININE FOR GFR 1.3 MG/DL (0.55-1.30); POTASSIUM SERUM 4.5 MMOL/L (3.5-5.1); TOTAL PROTEIN 7.4 G/DL (5.7-8.2)
[2022-07-06] MEDS ORDERED: MORPHINE 4 MG/ML 1ML VIAL IV ONE (00:35)
[2022-07-06] MEDS ORDERED: METOCLOPRAMIDE INJ 10MG/2ML VIAL IV ONE (00:35)
[2022-07-06] MEDS ORDERED: NS 1,000 ML IV ONE (00:35)
[2022-07-06] MEDS ORDERED: TAMSULOSIN 0.4 MG CAP PO ONE (03:05)
[2022-07-06] MEDS ORDERED: KETOROLAC 30 MG/ML 1ML VIAL IV ONE (03:05)
[2022-07-06] MEDS ORDERED: ONDANSETRON 4MG 2ML VIAL IV ONE (03:05)
[2022-07-06] MEDS ORDERED: TRAM50TA2 PO ×2 (03:49→05:33)
[2022-07-06] MEDS ORDERED: ONDA-195 PO ×2 (03:49→05:33)
[2022-07-06] MEDS ORDERED: FLOM0.4C39 PO ×2 (03:49→05:33)
[2022-07-06] MEDS ORDERED: DEXTROSE 50% 50ML SYRINGE IV PRN (05:00)
[2022-07-06] MEDS ORDERED: HYDROMORPHONE HCL 0.5 MG/ 0.5 ML SYRINGE IV PRN (05:00)
[2022-07-06] MEDS ORDERED: GLUCOSE 4GM CHEW TABLET PO PRN (05:00)
[2022-07-06] MEDS ORDERED: GLUCAGON INJ 1MG VIAL SC PRN (05:00)
[2022-07-06] MEDS: PANTOPRAZOLE 40MG VIAL IV SCH ×2 (05:35→21:35)
[2022-07-06] MEDS ORDERED: HOME MED LIST COMPLETE! XX SCH (05:40)
[2022-07-06] MEDS ORDERED: INSULIN LISPRO (NovoLOG) PER UNIT SC SCH ×2 (06:00→21:00)
[2022-07-06] MEDS: LEVEMIR (INSULIN DETEMIR) 1 UNITS/0.01ML SC SCH ×2 (07:10→21:00)
[2022-07-06] MEDS: NS 1,000 ML IV SCH ×3 (07:13→23:58)
[2022-07-06] MEDS: HYDROMORPHONE HCL 0.5 MG/ 0.5 ML SYRINGE IV PRN ×2 (08:58→13:54)
[2022-07-06 09:20] VITALS: BP 123/68; TEMP 98.1; O2SAT 96
[2022-07-06] MEDS ORDERED: MIRALAX *UNIT DOSE* 17GM PACKET PO PRN (10:00)
[2022-07-06] MEDS: MOM 30ML SUSPENSION UDC PO SCH ×2 (10:32→21:35)
[2022-07-06] MEDS: SENOKOT S TAB PO SCH ×2 (10:33→21:35)
[2022-07-06 10:59] LABS: CALCIUM LEVEL 8.5 MG/DL (8.5-10.1); CREATININE FOR GFR 1.17 MG/DL (0.55-1.30); GLOMERULAR FILTRATION RATE 51.9 (>51); POTASSIUM SERUM 3.8 MMOL/L (3.5-5.1)
[2022-07-06] MEDS: INSULIN LISPRO (NovoLOG) PER UNIT SC SCH ×2 (12:12→18:35)
[2022-07-06] MEDS ORDERED: ALBUTEROL 90 MCG/ACT 8GM HFA INHALER INH PRN (12:30)
[2022-07-06] MEDS ORDERED: SUMAtriptan SUCCINATE 25 MG TAB PO PRN (12:30)
[2022-07-06] MEDS: SUCRALFATE SUSP 1GM/10ML UD PO SCH ×3 (12:41→21:35)
[2022-07-06] MEDS: HEPARIN SOD (PORCINE) 5000UNITS/ML 1ML VIAL/SYRINGE SQ SCH ×2 (13:53→21:35)
[2022-07-06] MEDS: DULoxetine 30MG CAPSULE (CYMBALTA) PO SCH (13:53)
[2022-07-06 14:00] VITALS: BP 107/56; TEMP 98.6; O2SAT 92
[2022-07-06] MEDS: GABAPENTIN 400MG CAP PO SCH ×2 (16:27→21:35)
[2022-07-06] MEDS: PERCOCET 5MG/325MG TAB PO PRN (18:34)
[2022-07-06] MEDS: ONDANSETRON 4MG 2ML VIAL IV PRN (18:35)
[2022-07-06 19:38] VITALS: BP 109/69; TEMP 97.9; O2SAT 94
[2022-07-07] MEDS ORDERED: METOCLOPRAMIDE INJ 10MG/2ML VIAL IV ONE (01:00)
[2022-07-07] MEDS: ONDANSETRON 4MG 2ML VIAL IV PRN ×3 (05:23→15:56)
[2022-07-07] MEDS: HEPARIN SOD (PORCINE) 5000UNITS/ML 1ML VIAL/SYRINGE SQ SCH ×2 (05:23→14:00)
[2022-07-07] MEDS: PERCOCET 5MG/325MG TAB PO PRN ×2 (05:24→12:12)
[2022-07-07 05:25] VITALS: BP 101/59; TEMP 97.9; O2SAT 92
[2022-07-07] MEDS ORDERED: TAMSULOSIN 0.4 MG CAP PO SCH (06:00)
[2022-07-07 06:27] LABS: BASO % 0.8 % (0.0-1.0); EOS # 0.1 10^3/uL (0.0-0.5); EOS % 3.3 % (0.0-3.0); HEMATOCRIT 31.2 % (36.0-47.0); LYMPH # 2.3 10^3/uL (1.5-5.0); LYMPH % 61.1 % (24.0-44.0); MEAN CORPUSCULAR HEMOGLOBIN 29.3 pg (27.0-33.0); MEAN CORPUSCULAR VOLUME 86.2 fl (80.0-96.0); MONO # 0.2 10^3/uL (0.0-0.8); NEUTROPHILS # 1.1 10^3/uL (1.5-8.5); NEUTROPHILS % 28.5 % (36.0-66.0); PLATELET COUNT, AUTOMATED 140 10^3/uL (150-450); RED BLOOD COUNT 3.62 10^6/uL (4.00-5.40); WHITE BLOOD COUNT 3.7 10^3/uL (4.0-10.0)
[2022-07-07 06:28] LABS: HEMOGLOBIN 10.6 g/dl (12.0-15.5)
[2022-07-07 06:42] LABS: BLOOD UREA NITROGEN 18 MG/DL (9-23); CALCIUM LEVEL 8.1 MG/DL (8.5-10.1); CARBON DIOXIDE LEVEL 26 MMOL/L (20-31); CHLORIDE LEVEL 109 MMOL/L (98-107); CREATININE FOR GFR 0.92 MG/DL (0.55-1.30); GLOMERULAR FILTRATION RATE > 60.0 (>51); GLUCOSE, FASTING 108 MG/DL (60-100); MAGNESIUM LEVEL 1.8 MG/DL (1.8-2.4); SODIUM LEVEL 141 MMOL/L (136-145)
[2022-07-07] MEDS: SUCRALFATE SUSP 1GM/10ML UD PO SCH ×3 (07:30→17:22)
[2022-07-07] MEDS: INSULIN LISPRO (NovoLOG) PER UNIT SC SCH ×3 (07:30→17:21)
[2022-07-07 09:00] VITALS: O2SAT 96
[2022-07-07] MEDS: MOM 30ML SUSPENSION UDC PO SCH (10:22)
[2022-07-07] MEDS: DULoxetine 30MG CAPSULE (CYMBALTA) PO SCH (10:23)
[2022-07-07] MEDS: SENOKOT S TAB PO SCH (10:23)
[2022-07-07] MEDS: GABAPENTIN 400MG CAP PO SCH ×2 (10:23→17:21)
[2022-07-07] MEDS: NS 1,000 ML IV SCH (10:25)
[2022-07-07] MEDS: PANTOPRAZOLE 40MG VIAL IV SCH (10:25)
[2022-07-07 10:26] VITALS: BP 127/76
[2022-07-07] MEDS ORDERED: SUCR1TAB56 PO (12:30)
[2022-07-07] MEDS ORDERED: ISOVUE-300 61% 100ML VIAL As Ordered ONE (14:32)
[2022-07-07] MEDS ORDERED: ceFAZolin 1GM VIAL As Ordered ONE (14:54)
[2022-07-07] MEDS ORDERED: LIDOCAINE 2% 100MG/5ML SDV (FOR ANES.) As Ordered ONE (15:14)
[2022-07-07] MEDS ORDERED: ONDANSETRON 4MG 2ML VIAL As Ordered ONE (15:14)
[2022-07-07] MEDS ORDERED: fentaNYL 100 MCG/2 ML INJECTION As Ordered ONE (15:14)
[2022-07-07] MEDS ORDERED: propofoL 200 MG/20 ML VIAL As Ordered ONE (15:14)
[2022-07-07] MEDS ORDERED: MIDAZOLAM INJ 2MG/2ML VIAL As Ordered ONE (15:14)
[2022-07-07] MEDS ORDERED: MACR100C43 PO (15:29)
[2022-07-07] MEDS ORDERED: PYRI1TAB5 PO (15:29)
[2022-07-07] MEDS ORDERED: OXYB5TAB10 PO (15:29)
[2022-07-07 16:30] VITALS: BP 117/75; TEMP 97.5; O2SAT 92
[2022-07-07 16:50] VITALS: BP 126/77; TEMP 97.5; O2SAT 93
[2022-07-07] MEDS ORDERED: PERCOCET 5MG/325MG TAB PO ONE (17:10)
[2022-07-07] MEDS ORDERED: OXYC1TAB23 PO (17:11)
[2022-07-07 18:00] VITALS: BP 125/76; TEMP 97.7; O2SAT 95
[2022-07-13 19:09] LABS: CA Oxalate Dihy 40 % (.); Ca Ox Monohydrate 60 % (.)
== END 2022-07-07 19:40 | disposition home or self-care (01) ==
LOC: M ED 21:20 → M ED INP 21:21 → ENRESERV 07-06 07:58 → M MS5PR 07-06 09:12
PROVIDERS: ADMIT Internal Medicine; ATTEND Internal Medicine
DX: N13.2 Hydronephrosis with renal and ureteral calculous obstruction (principal); K31.84 Gastroparesis; E11.40 Type 2 diabetes mellitus with diabetic neuropathy, unspecified; Z79.899 Other long term (current) drug therapy; Z79.4 Long term (current) use of insulin; I10 Essential (primary) hypertension; M54.50 Low back pain, unspecified; K21.9 Gastro-esophageal reflux disease without esophagitis; G43.909 Migraine, unspecified, not intractable, without status migrainosus
CPT/HCPCS: 36415; 52332; 52352; 74176; 74420; 80048; 80076; 81001; 82365; 83605; 83690; 83735; 85025; 87635; 96361; 96374; 96375; 96376; 99285; C1769; C2617; C9113; J0690; J1100; J1170; J1815; J1885; J2250; J2405; J2765; J3010; Q9967

== ENCOUNTER 2022-08-04 06:15 | Inpatient (IN) | payer OTHER ==
[~2022-08-04] VITALS: Ht 149.9 cm; Wt 62.6 kg
[~2022-08-04 06:15] MED LIST changes: +FLOM0.4C39 PO; +IBUP1TAB7 PO; +INSULANT SC; +LEVOTAB10 PO; +MACR100C43 PO; +MECL-86 PO; +MECL1TAB31 PO; +OXYB5TAB10 PO; +OXYC1TAB23 PO; +PYRI1TAB5 PO; +SUCR1TAB56 PO; +TAMS1CAP17 PO
[2022-08-04] MEDS ORDERED: oxyCODONE 5MG TAB PO ONE (06:40)
[2022-08-04] MEDS ORDERED: ceFAZolin SOD 2 GM in IV 1 EA IV ONE (06:40)
[2022-08-04] MEDS ORDERED: TRANEXAMIC ACID INJection 1,000 MG in NS 100 ML IV ONE (07:00)
[2022-08-04] MEDS ORDERED: ACETAMINOPHEN 1000MG 100ML IV BAG As Ordered ONE (07:10)
[2022-08-04] MEDS ORDERED: HOME MED LIST COMPLETE! XX SCH (07:10)
[2022-08-04] MEDS ORDERED: KETOROLAC 60MG 2ML VIAL As Ordered ONE (07:10)
[2022-08-04] MEDS ORDERED: ONDANSETRON 4MG 2ML VIAL As Ordered ONE (07:10)
[2022-08-04] MEDS ORDERED: propofoL 200 MG/20 ML VIAL As Ordered ONE (07:10)
[2022-08-04] MEDS ORDERED: LIDOCAINE 2% 100MG/5ML SDV (FOR ANES.) As Ordered ONE (07:10)
[2022-08-04] MEDS ORDERED: ROCURONIUM BROMIDE 50MG/5ML VIAL As Ordered ONE (07:10)
[2022-08-04] MEDS ORDERED: fentaNYL 100 MCG/2 ML INJECTION As Ordered ONE ×3 (07:11→14:07)
[2022-08-04] MEDS ORDERED: MIDAZOLAM INJ 2MG/2ML VIAL As Ordered ONE ×2 (07:11→11:44)
[2022-08-04] MEDS ORDERED: LR 1,000 ML IV SCH ×3 (07:15→12:25)
[2022-08-04] MEDS: THROMBIN 20,000 UNITS KIT As Ordered ONE (07:20)
[2022-08-04] MEDS ORDERED: TRANEXAMIC ACID 100 MG/ML 10ML VIAL As Ordered ONE (07:20)
[2022-08-04] MEDS ORDERED: REMIFENTANIL 1MG 3ML VIAL As Ordered ONE ×2 (07:21→07:27)
[2022-08-04] MEDS ORDERED: propofoL 500 MG/50 ML VIAL As Ordered ONE ×2 (07:32→11:22)
[2022-08-04] MEDS ORDERED: ISOVUE-300 61% 100ML VIAL As Ordered ONE (08:38)
[2022-08-04] MEDS ORDERED: PHENYLEPHRINE 10MG/ML 1ML VIAL As Ordered ONE (08:39)
[2022-08-04] MEDS ORDERED: VANCOMYCIN 1000MG/20ML VIAL As Ordered ONE (11:30)
[2022-08-04] MEDS ORDERED: SUGAMMADEX SODIUM 500 MG/5 ML VIAL (BRIDION) As Ordered ONE (11:32)
[2022-08-04] MEDS ORDERED: ceFAZolin 1GM VIAL As Ordered ONE (11:48)
[2022-08-04] MEDS ORDERED: INSULIN LISPRO (NovoLOG) PER UNIT SC SCH ×2 (12:00→17:05)
[2022-08-04] MEDS: ACETAMINOPHEN TAB 650MG DOSE (2X325MG) PO SCH ×2 (12:00→18:11)
[2022-08-04] MEDS ORDERED: ONDANSETRON 4MG 2ML VIAL IV PRN (12:05)
[2022-08-04] MEDS ORDERED: oxyCODONE 5MG TAB PO PRN ×2 (12:05→12:25)
[2022-08-04] MEDS ORDERED: SENNA 8.6 MG TAB (SENOKOT) PO PRN (12:25)
[2022-08-04] MEDS ORDERED: GLUCAGON INJ 1MG VIAL SC PRN (12:35)
[2022-08-04] MEDS ORDERED: ALBUTEROL 90 MCG/ACT 8GM HFA INHALER INH PRN (12:35)
[2022-08-04] MEDS ORDERED: DEXTROSE 50% 50ML SYRINGE IV PRN (12:35)
[2022-08-04] MEDS ORDERED: GLUCOSE 4GM CHEW TABLET PO PRN (12:35)
[2022-08-04] MEDS ORDERED: MECLIZINE 25 MG TABLET PO PRN (12:35)
[2022-08-04] MEDS ORDERED: SUMAtriptan SUCCINATE 25 MG TAB PO PRN (12:35)
[2022-08-04] MEDS: HYDROMORPHONE HCL 0.5 MG/ 0.5 ML SYRINGE IV PRN ×4 (12:45→13:08)
[2022-08-04] MEDS: fentaNYL 100 MCG/2 ML INJECTION IV PRN ×6 (13:28→14:17)
[2022-08-04 15:00] VITALS: BP 138/80; TEMP 97.9; O2SAT 99
[2022-08-04 15:30] VITALS: BP 129/78; TEMP 97.5; O2SAT 98
[2022-08-04] MEDS: GABAPENTIN 300 MG CAP PO SCH ×2 (15:48→20:50)
[2022-08-04] MEDS: ceFAZolin SOD 2 GM in IV 1 EA IV SCH (15:48)
[2022-08-04 16:30] VITALS: BP 114/74; TEMP 97.9; O2SAT 99
[2022-08-04 17:30] VITALS: BP 110/68; TEMP 97.2; O2SAT 96
[2022-08-04] MEDS: INSULIN LISPRO (NovoLOG) PER UNIT SC SCH ×2 (18:10→21:00)
[2022-08-04] MEDS: ONDANSETRON 4MG 2ML VIAL IV PRN (18:16)
[2022-08-04 18:30] VITALS: BP 121/62; TEMP 98.1; O2SAT 98
[2022-08-04] MEDS: TAMSULOSIN 0.4 MG CAP PO SCH (20:50)
[2022-08-04] MEDS: DOCUSATE SODIUM 100MG CAPSULE PO SCH (20:50)
[2022-08-04] MEDS: oxyCODONE 5MG TAB PO PRN (20:50)
[2022-08-04 21:01] VITALS: BP 111/58; TEMP 97.9; O2SAT 95
[2022-08-04] MEDS ORDERED: PROMETHAZINE 25MG/ML 1ML VIAL IV ONE (22:00)
[2022-08-05] MEDS: ACETAMINOPHEN TAB 650MG DOSE (2X325MG) PO SCH ×4 (00:06→17:37)
[2022-08-05] MEDS: ceFAZolin SOD 2 GM in IV 1 EA IV SCH (00:06)
[2022-08-05 01:48] VITALS: BP 95/52; TEMP 97.9; O2SAT 95
[2022-08-05] MEDS: oxyCODONE 5MG TAB PO PRN (05:09)
[2022-08-05] MEDS: MORPHINE 4 MG/ML 1ML VIAL IV PRN ×2 (05:58→16:14)
[2022-08-05 06:00] VITALS: BP 111/59; TEMP 98.5; O2SAT 98
[2022-08-05 06:37] LABS: HEMATOCRIT 30.9 % (36.0-47.0); HEMOGLOBIN 10.1 g/dl (12.0-15.5); MEAN CORPUSCULAR HEMOGLOBIN 29.3 pg (27.0-33.0); MEAN CORPUSCULAR HGB CONC 32.7 g/dl (32.0-36.5); MEAN CORPUSCULAR VOLUME 89.6 fl (80.0-96.0); PLATELET COUNT, AUTOMATED 153 10^3/uL (150-450); RED BLOOD COUNT 3.45 10^6/uL (4.00-5.40); WHITE BLOOD COUNT 7.3 10^3/uL (4.0-10.0)
[2022-08-05 06:52] LABS: INR 1.06
[2022-08-05 06:55] LABS: ALBUMIN 3.3 G/DL (3.2-5.2); ALKALINE PHOSPHATASE 97 U/L (46-116); ALT/SGPT 13 U/L (7.0-40); AST/SGOT 36 U/L (<34); BILIRUBIN,TOTAL 0.3 MG/DL (0.3-1.2); BLOOD UREA NITROGEN 18 MG/DL (9-23); CALCIUM LEVEL 8.3 MG/DL (8.5-10.1); CARBON DIOXIDE LEVEL 26 MMOL/L (20-31); CHLORIDE LEVEL 107 MMOL/L (98-107); CREATININE FOR GFR 0.83 MG/DL (0.55-1.30); GLOMERULAR FILTRATION RATE > 60.0 (>51); GLUCOSE, FASTING 184 MG/DL (60-100); PHOSPHORUS LEVEL 3.4 MG/DL (2.5-4.9); POTASSIUM SERUM 3.9 MMOL/L (3.5-5.1); SODIUM LEVEL 140 MMOL/L (136-145)
[2022-08-05] MEDS: GABAPENTIN 300 MG CAP PO SCH ×3 (08:12→20:16)
[2022-08-05] MEDS: DOCUSATE SODIUM 100MG CAPSULE PO SCH ×2 (08:12→20:16)
[2022-08-05] MEDS: hydroCHLOROthiazide 12.5 MG CAPSULE PO SCH (08:12)
[2022-08-05] MEDS: INSULIN LISPRO (NovoLOG) PER UNIT SC SCH ×4 (08:12→20:55)
[2022-08-05 08:14] VITALS: BP 102/44
[2022-08-05] MEDS: ONDANSETRON 4MG 2ML VIAL IV PRN (09:11)
[2022-08-05] MEDS: LOSARTAN 50MG TABLET PO SCH (09:21)
[2022-08-05] MEDS: MORPHINE 15 MG SA TAB PO SCH ×2 (10:06→20:15)
[2022-08-05] MEDS: CelecoXIB (CeleBREX) 100 MG CAP PO SCH ×2 (10:06→20:16)
[2022-08-05 14:00] VITALS: BP 105/62; TEMP 98.1; O2SAT 98
[2022-08-05] MEDS: TAMSULOSIN 0.4 MG CAP PO SCH (20:15)
[2022-08-05 20:37] VITALS: BP 104/61; TEMP 97; O2SAT 95
[2022-08-06] MEDS: ACETAMINOPHEN TAB 650MG DOSE (2X325MG) PO SCH ×4 (00:03→18:20)
[2022-08-06] MEDS: MORPHINE 4 MG/ML 1ML VIAL IV PRN ×3 (00:52→16:15)
[2022-08-06 06:04] VITALS: BP 96/64; TEMP 97.5; O2SAT 97
[2022-08-06 06:29] LABS: HEMATOCRIT 33.4 % (36.0-47.0); HEMOGLOBIN 10.7 g/dl (12.0-15.5); MEAN CORPUSCULAR HEMOGLOBIN 29.2 pg (27.0-33.0); PLATELET COUNT, AUTOMATED 153 10^3/uL (150-450); RED BLOOD COUNT 3.67 10^6/uL (4.00-5.40); WHITE BLOOD COUNT 6.9 10^3/uL (4.0-10.0)
[2022-08-06 06:37] LABS: INR 1.02; PROTHROMBIN TIME 13.6 SECONDS (12.5-14.5)
[2022-08-06 06:51] LABS: ALBUMIN 3.2 G/DL (3.2-5.2); ALKALINE PHOSPHATASE 120 U/L (46-116); ALT/SGPT 18 U/L (7.0-40); AST/SGOT 29 U/L (<34); BILIRUBIN,TOTAL 0.3 MG/DL (0.3-1.2); BLOOD UREA NITROGEN 16 MG/DL (9-23); CALCIUM LEVEL 9.1 MG/DL (8.5-10.1); CARBON DIOXIDE LEVEL 26 MMOL/L (20-31); CHLORIDE LEVEL 108 MMOL/L (98-107); CREATININE FOR GFR 0.78 MG/DL (0.55-1.30); GLOMERULAR FILTRATION RATE > 60.0 (>51); GLUCOSE, FASTING 132 MG/DL (60-100); PHOSPHORUS LEVEL 3.4 MG/DL (2.5-4.9); POTASSIUM SERUM 3.9 MMOL/L (3.5-5.1); SODIUM LEVEL 142 MMOL/L (136-145); TOTAL PROTEIN 6.1 G/DL (5.7-8.2)
[2022-08-06] MEDS: INSULIN LISPRO (NovoLOG) PER UNIT SC SCH ×4 (08:56→21:00)
[2022-08-06] MEDS: DOCUSATE SODIUM 100MG CAPSULE PO SCH ×2 (08:57→20:36)
[2022-08-06] MEDS: LOSARTAN 50MG TABLET PO SCH (09:00)
[2022-08-06] MEDS: GABAPENTIN 300 MG CAP PO SCH ×3 (09:04→20:36)
[2022-08-06] MEDS: CelecoXIB (CeleBREX) 100 MG CAP PO SCH ×2 (09:04→20:36)
[2022-08-06] MEDS: hydroCHLOROthiazide 12.5 MG CAPSULE PO SCH (09:05)
[2022-08-06] MEDS: MORPHINE 15 MG SA TAB PO SCH ×2 (09:06→20:37)
[2022-08-06] MEDS: ONDANSETRON 4MG 2ML VIAL IV PRN (13:00)
[2022-08-06 14:00] VITALS: BP 109/60; TEMP 98.1; O2SAT 97
[2022-08-06] MEDS: TAMSULOSIN 0.4 MG CAP PO SCH (20:36)
[2022-08-06 21:17] VITALS: BP 114/62; TEMP 97.7; O2SAT 98
[2022-08-07] MEDS: ACETAMINOPHEN TAB 650MG DOSE (2X325MG) PO SCH ×2 (00:12→06:18)
[2022-08-07] MEDS: MORPHINE 4 MG/ML 1ML VIAL IV PRN ×2 (00:13→06:19)
[2022-08-07 06:10] VITALS: BP 108/60; TEMP 97.1; O2SAT 96
[2022-08-07 06:24] LABS: HEMATOCRIT 32.6 % (36.0-47.0); HEMOGLOBIN 10.3 g/dl (12.0-15.5); MEAN CORPUSCULAR HEMOGLOBIN 28.8 pg (27.0-33.0); MEAN CORPUSCULAR HGB CONC 31.6 g/dl (32.0-36.5); MEAN CORPUSCULAR VOLUME 91.1 fl (80.0-96.0); PLATELET COUNT, AUTOMATED 147 10^3/uL (150-450); RED BLOOD COUNT 3.58 10^6/uL (4.00-5.40); WHITE BLOOD COUNT 6.8 10^3/uL (4.0-10.0)
[2022-08-07 06:43] LABS: INR 1.01; PROTHROMBIN TIME 13.5 SECONDS (12.5-14.5)
[2022-08-07 06:49] LABS: ALKALINE PHOSPHATASE 121 U/L (46-116); ALT/SGPT 19 U/L (7.0-40); AST/SGOT 26 U/L (<34); BILIRUBIN,TOTAL 0.3 MG/DL (0.3-1.2); BLOOD UREA NITROGEN 14 MG/DL (9-23); CALCIUM LEVEL 8.9 MG/DL (8.5-10.1); CARBON DIOXIDE LEVEL 27 MMOL/L (20-31); CHLORIDE LEVEL 106 MMOL/L (98-107); CREATININE FOR GFR 0.73 MG/DL (0.55-1.30); GLOMERULAR FILTRATION RATE > 60.0 (>51); GLUCOSE, FASTING 180 MG/DL (60-100); PHOSPHORUS LEVEL 4.1 MG/DL (2.5-4.9); POTASSIUM SERUM 4.1 MMOL/L (3.5-5.1); SODIUM LEVEL 139 MMOL/L (136-145); TOTAL PROTEIN 5.6 G/DL (5.7-8.2)
[2022-08-07 08:22] VITALS: BP 120/65
[2022-08-07] MEDS: LOSARTAN 50MG TABLET PO SCH (08:22)
[2022-08-07] MEDS: GABAPENTIN 300 MG CAP PO SCH (08:24)
[2022-08-07] MEDS: hydroCHLOROthiazide 12.5 MG CAPSULE PO SCH (08:24)
[2022-08-07] MEDS: DOCUSATE SODIUM 100MG CAPSULE PO SCH (08:24)
[2022-08-07] MEDS: CelecoXIB (CeleBREX) 100 MG CAP PO SCH (08:25)
[2022-08-07] MEDS: MORPHINE 15 MG SA TAB PO SCH (08:25)
[2022-08-07] MEDS: INSULIN LISPRO (NovoLOG) PER UNIT SC SCH (08:26)
[2022-08-07] MEDS ORDERED: ACET1TAB55 PO (08:46)
[2022-08-07] MEDS ORDERED: COLA100C5 PO (08:46)
[2022-08-07] MEDS ORDERED: CELE100C PO (08:46)
[2022-08-07] MEDS ORDERED: GABA-283 PO (08:46)
[2022-08-07] MEDS ORDERED: MORP15TASA PO (08:46)
== END 2022-08-07 10:15 | disposition home health service (06) | DRG 304 ==
LOC: M SDC 06:15 → M MS5PR 06:16 → M MSPAV 06:16 → UNDOADMOB 06:16 → EDSTATUS 07:30 → M MSPAV 13:31 → M MS5PR 13:31 → OBSVTOIN 08-05 12:52
PROVIDERS: ADMIT Orthopaedic Surgery; ATTEND Orthopaedic Surgery
PROC: 01NB0ZZ Release Lumbar Nerve, Open Approach (ICD-10-PCS; 2022-08-04)
PROC: 0SG00AJ Fusion of Lumbar Vertebral Joint with Interbody Fusion Device, Posterior Approach, Anterior Column, Open Approach (ICD-10-PCS; 2022-08-04)
PROC: 0SB20ZZ Excision of Lumbar Vertebral Disc, Open Approach (ICD-10-PCS; principal; 2022-08-04 07:30)
DX: M51.37 Other intervertebral disc degeneration, lumbosacral region (principal); E11.9 Type 2 diabetes mellitus without complications; D64.9 Anemia, unspecified; Z79.4 Long term (current) use of insulin; G43.909 Migraine, unspecified, not intractable, without status migrainosus; I10 Essential (primary) hypertension; Z87.891 Personal history of nicotine dependence; K21.9 Gastro-esophageal reflux disease without esophagitis; F41.9 Anxiety disorder, unspecified; F32.A Depression, unspecified; Z79.51 Long term (current) use of inhaled steroids; Z79.899 Other long term (current) drug therapy

== ENCOUNTER → 2022-08-12 | Outpatient (CLI) | payer SELFPAY ==
[~2022-08-12] MED LIST changes: +ACET1TAB55 PO; +CELE100C PO; +CELE1CAP9 PO; +COLA100C5 PO; +DOCU100C16 PO; -GABA-283 PO; +GABA-284 PO; +MIRA1POW3 PO; +MOM30SS2 PO; +MORP15TASA PO; +MORP30TASA PO; +NIRM1TAB PO; +SENN-52 PO
== END ==
LOC: M SOG 10:01
PROVIDERS: ATTEND Orthopaedic Surgery
DX: M47.27 Other spondylosis with radiculopathy, lumbosacral region (principal)

== ENCOUNTER 2022-08-19 16:55 | Observation (INO) | payer OTHER ==
[~2022-08-19] VITALS: Ht 149.9 cm; Wt 59.1 kg
[~2022-08-19 16:55] MED LIST changes: -CELE1CAP9 PO; -DOCU100C16 PO; +GABA-283 PO; -GABA-284 PO; -MIRA1POW3 PO; -MOM30SS2 PO; -MORP30TASA PO; -NIRM1TAB PO; -SENN-52 PO
[2022-08-19 19:47] LABS: BASO % 0.5 % (0.0-1.0); EOS # 0.2 10^3/uL (0.0-0.5); EOS % 2.8 % (0.0-3.0); HEMATOCRIT 33.4 % (36.0-47.0); HEMOGLOBIN 10.6 g/dl (12.0-15.5); LYMPH # 2.1 10^3/uL (1.5-5.0); LYMPH % 26.5 % (24.0-44.0); MEAN CORPUSCULAR HEMOGLOBIN 28.6 pg (27.0-33.0); MEAN CORPUSCULAR HGB CONC 31.7 g/dl (32.0-36.5); MONO # 0.5 10^3/uL (0.0-0.8); MONO % 5.6 % (2.0-8.0); NEUTROPHILS # 5.1 10^3/uL (1.5-8.5); NEUTROPHILS % 64.2 % (36.0-66.0); PLATELET COUNT, AUTOMATED 292 10^3/uL (150-450); RED BLOOD COUNT 3.71 10^6/uL (4.00-5.40)
[2022-08-19 20:04] LABS: LIPASE 30 U/L (12-53)
[2022-08-19 20:06] LABS: ALBUMIN 3.4 G/DL (3.2-5.2); ALKALINE PHOSPHATASE 95 U/L (46-116); ALT/SGPT 17 U/L (7.0-40); AST/SGOT 14 U/L (<34); BILIRUBIN,DIRECT 0.1 MG/DL (<0.4); BILIRUBIN,TOTAL 0.4 MG/DL (0.3-1.2); BLOOD UREA NITROGEN 12 MG/DL (9-23); CALCIUM LEVEL 9.1 MG/DL (8.5-10.1); CARBON DIOXIDE LEVEL 28 MMOL/L (20-31); CHLORIDE LEVEL 104 MMOL/L (98-107); CK-MB VALUE MASS 1.2 NG/ML (<3.6); CPK CREATINE PHOSPHOKINASE 119 U/L (34-145); CREATININE FOR GFR 0.78 MG/DL (0.55-1.30); GLOMERULAR FILTRATION RATE > 60.0 (>51); GLUCOSE, FASTING 112 MG/DL (60-100); POTASSIUM SERUM 4.2 MMOL/L (3.5-5.1); SODIUM LEVEL 139 MMOL/L (136-145); TOTAL PROTEIN 6.6 G/DL (5.7-8.2)
[2022-08-20] MEDS ORDERED: NS 1,000 ML IV ONE (03:50)
[2022-08-20] MEDS ORDERED: KETOROLAC 30 MG/ML 1ML VIAL IV ONE (03:50)
[2022-08-20] MEDS ORDERED: FLEET OIL RETENTION ENEMA PR ONE (06:25)
[2022-08-20] MEDS ORDERED: ONDA4TAB6 PO (06:50)
[2022-08-20] MEDS ORDERED: CELE1CAP9 PO (06:50)
[2022-08-20] MEDS ORDERED: GABA-283 PO (06:50)
[2022-08-20] MEDS ORDERED: MORP30TASA PO (06:50)
[2022-08-20] MEDS ORDERED: DOCU100C16 PO (06:50)
[2022-08-20] MEDS ORDERED: ACET1TAB55 PO (06:50)
[2022-08-20] MEDS ORDERED: HOME MED LIST COMPLETE! XX SCH (06:55)
[2022-08-20] MEDS ORDERED: GLUCAGON INJ 1MG VIAL SC PRN (07:40)
[2022-08-20] MEDS ORDERED: GLUCOSE 4GM CHEW TABLET PO PRN (07:40)
[2022-08-20] MEDS ORDERED: DEXTROSE 50% 50ML SYRINGE IV PRN (07:40)
[2022-08-20] MEDS ORDERED: MECLIZINE 25 MG TABLET PO PRN (07:50)
[2022-08-20] MEDS ORDERED: ONDANSETRON 4MG 2ML VIAL IV PRN (07:50)
[2022-08-20] MEDS ORDERED: ALBUTEROL 90 MCG/ACT 8GM HFA INHALER INH PRN (07:50)
[2022-08-20] MEDS ORDERED: MORPHINE 30 MG SA TAB PO PRN (07:50)
[2022-08-20] MEDS ORDERED: SUMAtriptan SUCCINATE 25 MG TAB PO PRN (07:50)
[2022-08-20 09:01] VITALS: BP 120/74
[2022-08-20] MEDS: DOCUSATE SODIUM 100MG CAPSULE PO SCH ×2 (09:01→21:15)
[2022-08-20] MEDS: GABAPENTIN 400MG CAP PO SCH ×2 (09:01→21:14)
[2022-08-20] MEDS: ENOXAPARIN 40MG/0.4ML SYRINGE (J1650 PER 10MG) SC SCH (09:02)
[2022-08-20] MEDS: FLEET ENEMA PR SCH ×2 (09:02→19:57)
[2022-08-20 12:00] VITALS: BP 108/59; TEMP 97.3; O2SAT 99
[2022-08-20] MEDS: INSULIN LISPRO (NovoLOG) PER UNIT SC SCH ×2 (12:00→17:30)
[2022-08-20] MEDS: PANTOPRAZOLE 40MG TAB (PROTONIX) PO SCH (12:48)
[2022-08-20 14:00] VITALS: BP 113/64; TEMP 97.7; O2SAT 98
[2022-08-20] MEDS ORDERED: GOLYTELY SOLN 4000 ML BTL PO ONE (14:00)
[2022-08-20] MEDS: NIRMATRELVIR/RITONAVIR CO-PACK (EMERGENCY USE AUTH) PO SCH ×2 (14:36→21:19)
[2022-08-20] MEDS ORDERED: INSULIN LISPRO (NovoLOG) PER UNIT SC SCH (21:00)
[2022-08-20] MEDS ORDERED: LEVEMIR (INSULIN DETEMIR) 1 UNITS/0.01ML SC SCH (21:00)
[2022-08-20 22:00] VITALS: BP 102/63; TEMP 97.7; O2SAT 94
[2022-08-21 06:00] VITALS: BP 101/62; TEMP 97.7; O2SAT 95
[2022-08-21] MEDS ORDERED: MOM 30ML SUSPENSION UDC PO PRN (07:30)
[2022-08-21] MEDS: INSULIN LISPRO (NovoLOG) PER UNIT SC SCH (07:30)
[2022-08-21] MEDS ORDERED: MIRALAX *UNIT DOSE* 17GM PACKET PO PRN (07:30)
[2022-08-21] MEDS ORDERED: SENOKOT S TAB PO PRN (07:30)
[2022-08-21 07:57] LABS: BASO % 0.6 % (0.0-1.0); EOS # 0.1 10^3/uL (0.0-0.5); EOS % 2.8 % (0.0-3.0); HEMATOCRIT 31.7 % (36.0-47.0); HEMOGLOBIN 10.1 g/dl (12.0-15.5); LYMPH # 2.2 10^3/uL (1.5-5.0); LYMPH % 44.2 % (24.0-44.0); MEAN CORPUSCULAR HEMOGLOBIN 28.5 pg (27.0-33.0); MEAN CORPUSCULAR HGB CONC 31.9 g/dl (32.0-36.5); MEAN CORPUSCULAR VOLUME 89.3 fl (80.0-96.0); MONO # 0.4 10^3/uL (0.0-0.8); MONO % 7.6 % (2.0-8.0); NEUTROPHILS # 2.2 10^3/uL (1.5-8.5); NEUTROPHILS % 44.2 % (36.0-66.0); PLATELET COUNT, AUTOMATED 288 10^3/uL (150-450); RED BLOOD COUNT 3.55 10^6/uL (4.00-5.40)
[2022-08-21 08:22] LABS: ALBUMIN 3.2 G/DL (3.2-5.2); ALKALINE PHOSPHATASE 81 U/L (46-116); ALT/SGPT 14 U/L (7.0-40); AST/SGOT 12 U/L (<34); BILIRUBIN,TOTAL 0.5 MG/DL (0.3-1.2); BLOOD UREA NITROGEN 6 MG/DL (9-23); CALCIUM LEVEL 9.3 MG/DL (8.5-10.1); CARBON DIOXIDE LEVEL 27 MMOL/L (20-31); CHLORIDE LEVEL 110 MMOL/L (98-107); CREATININE FOR GFR 0.81 MG/DL (0.55-1.30); GLOMERULAR FILTRATION RATE > 60.0 (>51); GLUCOSE, FASTING 117 MG/DL (60-100); MAGNESIUM LEVEL 1.7 MG/DL (1.8-2.4); POTASSIUM SERUM 3.8 MMOL/L (3.5-5.1); SODIUM LEVEL 145 MMOL/L (136-145); TOTAL PROTEIN 6.2 G/DL (5.7-8.2)
[2022-08-21] MEDS ORDERED: MOM30SS2 PO (08:49)
[2022-08-21] MEDS ORDERED: PANT40TA29 PO (08:49)
[2022-08-21] MEDS ORDERED: MIRA1POW3 PO (08:49)
[2022-08-21] MEDS ORDERED: SENN-52 PO (08:49)
[2022-08-21] MEDS ORDERED: NIRM1TAB PO (08:49)
[2022-08-21] MEDS ORDERED: MAGNESIUM OXIDE 400MG TAB (MAG-OX) PO ONE (08:50)
[2022-08-21] MEDS: NIRMATRELVIR/RITONAVIR CO-PACK (EMERGENCY USE AUTH) PO SCH (09:00)
[2022-08-21] MEDS: ENOXAPARIN 40MG/0.4ML SYRINGE (J1650 PER 10MG) SC SCH (09:00)
[2022-08-21] MEDS: PANTOPRAZOLE 40MG TAB (PROTONIX) PO SCH (09:03)
[2022-08-21] MEDS: DOCUSATE SODIUM 100MG CAPSULE PO SCH (09:04)
[2022-08-21] MEDS: GABAPENTIN 400MG CAP PO SCH (09:04)
== END 2022-08-21 12:10 | disposition home or self-care (01) ==
LOC: M ED 16:55 → M ED INP 16:56 → M MS5PR 08-20 11:50
PROVIDERS: ADMIT Internal Medicine; ATTEND Internal Medicine
DX: R11.2 Nausea with vomiting, unspecified (principal); K59.00 Constipation, unspecified; U07.1 COVID-19; I10 Essential (primary) hypertension; E11.40 Type 2 diabetes mellitus with diabetic neuropathy, unspecified; G43.909 Migraine, unspecified, not intractable, without status migrainosus; K21.9 Gastro-esophageal reflux disease without esophagitis; K31.84 Gastroparesis; Z79.4 Long term (current) use of insulin; Z79.899 Other long term (current) drug therapy
CPT/HCPCS: 36415; 74176; 80048; 80053; 80076; 81001; 82550; 82553; 83605; 83690; 83735; 84484; 85025; 87486; 87581; 87633; 87798; 93005; 96374; 96375; 99284; J1650; J1885

== ENCOUNTER → 2022-09-13 | Outpatient (CLI) | payer OTHER ==
[~2022-09-13] MED LIST changes: +CELE1CAP9 PO; +DOCU100C16 PO; -GABA-283 PO; +GABA-284 PO; +MIRA1POW3 PO; +MOM30SS2 PO; +MORP30TASA PO; +NIRM1TAB PO; +SENN-52 PO
== END ==
LOC: M RAD 08:10
PROVIDERS: ATTEND Internal Medicine Gastroenterology
DX: K82.8 Other specified diseases of gallbladder (principal)
CPT/HCPCS: 78227; A9537

== ENCOUNTER → 2022-09-30 | Outpatient (CLI) | payer OTHER ==
[~2022-09-30] MED LIST changes: +CONS10SO3 PO; +IBUP80TA PO; +METF-839 PO
== END ==
LOC: M SOG 08:03
PROVIDERS: ATTEND Orthopaedic Surgery
DX: M47.27 Other spondylosis with radiculopathy, lumbosacral region (principal); Z47.89 Encounter for other orthopedic aftercare; Z98.1 Arthrodesis status

== ENCOUNTER 2022-10-12 07:55 | Day surgery (SDC) | payer OTHER ==
[~2022-10-12] VITALS: Ht 149.9 cm; Wt 64.3 kg
[~2022-10-12 07:55] MED LIST changes: +CELE0.09 PO; -CELE1CAP9 PO; +MECL-209 PO; -MECL1TAB31 PO; +NS 1,000 ML IV ONE
[2022-10-12] MEDS ORDERED: fentaNYL 100 MCG/2 ML INJECTION As Ordered ONE (09:10)
[2022-10-12 09:53] VITALS: TEMP 98.5
[2022-10-12 10:05] VITALS: BP 153/74; O2SAT 98
== END 2022-10-12 10:05 | disposition home or self-care (01) ==
LOC: M OPP 07:55
PROVIDERS: ATTEND Internal Medicine Gastroenterology
DX: D12.3 Benign neoplasm of transverse colon (principal); K57.30 Diverticulosis of large intestine without perforation or abscess without bleeding; K64.8 Other hemorrhoids; K92.1 Melena; R12 Heartburn; R11.10 Vomiting, unspecified; Z87.891 Personal history of nicotine dependence; E11.9 Type 2 diabetes mellitus without complications; Z79.1 Long term (current) use of non-steroidal anti-inflammatories (NSAID); Z79.4 Long term (current) use of insulin; Z79.82 Long term (current) use of aspirin; Z79.891 Long term (current) use of opiate analgesic; Z79.899 Other long term (current) drug therapy
CPT/HCPCS: 43235; 45385; 88305; J3010

== ENCOUNTER → 2022-11-30 | Outpatient (CLI) | payer SELFPAY ==
[~2022-11-30] MED LIST changes: -NS 1,000 ML IV ONE; -OXYB5TAB10 PO; +OXYB5TAB11 PO
== END ==
LOC: M SOG 08:23
PROVIDERS: ATTEND Orthopaedic Surgery
DX: M54.50 Low back pain, unspecified (principal); Z97.8 Presence of other specified devices

== ENCOUNTER → 2023-03-20 | Outpatient (CLI) | payer OTHER ==
[~2023-03-20] MED LIST changes: -MIRA1POW3 PO; +MIRA33506 PO; -OXYB5TAB11 PO; +OXYB5TAB14 PO
== END ==
LOC: M SLEEP 20:00
PROVIDERS: ATTEND Nurse Practitioner Family
DX: G47.33 Obstructive sleep apnea (adult) (pediatric) (principal)

== ENCOUNTER → 2023-04-06 | Outpatient (CLI) | payer OTHER | LOC: M SLEEP 20:00 | PROVIDERS: ATTEND Nurse Practitioner Family | DX: G47.33 Obstructive sleep apnea (adult) (pediatric) (principal) ==

== ENCOUNTER → 2023-04-12 | Outpatient (CLI) | payer OTHER | LOC: M SOG 07:58 | PROVIDERS: ATTEND Orthopaedic Surgery | DX: M54.16 Radiculopathy, lumbar region (principal) ==

== ENCOUNTER → 2023-06-09 | Outpatient (CLI) | payer OTHER | LOC: M PLARAD 15:15 | PROVIDERS: ATTEND Orthopaedic Surgery | DX: M54.16 Radiculopathy, lumbar region (principal) ==

== ENCOUNTER → 2023-06-13 | Outpatient (CLI) | payer OTHER ==
[2023-06-13 14:13] LABS: BASO % 0.9 % (0.0-1.0); EOS # 0.1 10^3/uL (0.0-0.5); EOS % 3.3 % (0.0-3.0); HEMATOCRIT 41.4 % (36.0-47.0); HEMOGLOBIN 13.7 g/dl (12.0-15.5); LYMPH # 1.9 10^3/uL (1.5-5.0); LYMPH % 45.2 % (24.0-44.0); MEAN CORPUSCULAR HEMOGLOBIN 30.3 pg (27.0-33.0); MEAN CORPUSCULAR HGB CONC 33.1 g/dl (32.0-36.5); MEAN CORPUSCULAR VOLUME 91.6 fl (80.0-96.0); MONO # 0.3 10^3/uL (0.0-0.8); NEUTROPHILS # 1.9 10^3/uL (1.5-8.5); NEUTROPHILS % 43.4 % (36.0-66.0); PLATELET COUNT, AUTOMATED 164 10^3/uL (150-450); RED BLOOD COUNT 4.52 10^6/uL (4.00-5.40); WHITE BLOOD COUNT 4.3 10^3/uL (4.0-10.0)
[2023-06-13 14:41] LABS: ALBUMIN 4.1 G/DL (3.2-5.2); ALKALINE PHOSPHATASE 110 U/L (46-116); ALT/SGPT 43 U/L (7.0-40); AST/SGOT 34 U/L (<34); BILIRUBIN,TOTAL 0.8 MG/DL (0.3-1.2); BLOOD UREA NITROGEN 14 MG/DL (9-23); CALCIUM LEVEL 8.6 MG/DL (8.5-10.1); CARBON DIOXIDE LEVEL 26 MMOL/L (20-31); CHLORIDE LEVEL 106 MMOL/L (98-107); CHOLESTEROL LEVEL 226 MG/DL (<200); CHOLESTEROL RISK RATIO 6.09 (<5); CREATININE FOR GFR 0.83 MG/DL (0.55-1.30); GLOMERULAR FILTRATION RATE > 60.0 (>51); GLUCOSE, FASTING 220 MG/DL (60-100); HDL CHOLESTEROL 37.1 MG/DL (>40); LDL CHOLESTEROL 129.9 MG/DL (<100); MAGNESIUM LEVEL 1.8 MG/DL (1.8-2.4); NON-HDL-C 188.9 MG/DL; SODIUM LEVEL 138 MMOL/L (136-145); TOTAL PROTEIN 6.9 G/DL (5.7-8.2); TRIGLYCERIDES LEVEL 295 MG/DL (<150)
[2023-06-13 14:45] LABS: FREE T4 0.91 NG/DL (0.89-1.76); VITAMIN B12 LEVEL 436 PG/ML (211-911)
[2023-06-13 14:46] LABS: FOLATE 19.6 NG/ML (>5.4); TOTAL 25(OH) VITAMIN D 7.4 NG/ML (20.0-100.0)
[2023-06-13 14:47] LABS: THYROID STIMULATING HORMONE 2.826 uIU/ML (0.55-4.78)
== END ==
LOC: M WUC 11:03
PROVIDERS: ATTEND Registered Nurse
DX: E78.2 Mixed hyperlipidemia (principal); I10 Essential (primary) hypertension; G43.909 Migraine, unspecified, not intractable, without status migrainosus; F43.21 Adjustment disorder with depressed mood

== ENCOUNTER → 2023-06-15 | Outpatient (CLI) | payer OTHER | LOC: M SOG 12:53 | PROVIDERS: ATTEND Orthopaedic Surgery | DX: M54.2 Cervicalgia (principal); M47.892 Other spondylosis, cervical region ==

== ENCOUNTER → 2023-09-13 | Outpatient (CLI) | payer OTHER ==
[~2023-09-13] MED LIST changes: +ONDA-282 PO; -ONDA4TAB6 PO
[2023-09-13 19:15] LABS: FERRITIN 87.2 NG/ML (7.3-270.7); THYROID STIMULATING HORMONE 2.853 uIU/ML (0.55-4.78)
[2023-09-13 19:18] LABS: VITAMIN B12 LEVEL 586 PG/ML (211-911)
[2023-09-13 19:20] LABS: BASO # 0.1 10^3/uL (0.0-0.2); BASO % 0.9 % (0.0-1.0); EOS # 0.2 10^3/uL (0.0-0.5); EOS % 2.6 % (0.0-3.0); HEMATOCRIT 43.6 % (36.0-47.0); HEMOGLOBIN 14.3 g/dl (12.0-15.5); LYMPH # 2.3 10^3/uL (1.5-5.0); LYMPH % 40.7 % (24.0-44.0); MEAN CORPUSCULAR HEMOGLOBIN 30.5 pg (27.0-33.0); MEAN CORPUSCULAR HGB CONC 32.8 g/dl (32.0-36.5); MONO # 0.3 10^3/uL (0.0-0.8); MONO % 5.8 % (2.0-8.0); NEUTROPHILS # 2.9 10^3/uL (1.5-8.5); NEUTROPHILS % 49.8 % (36.0-66.0); PLATELET COUNT, AUTOMATED 173 10^3/uL (150-450); RED BLOOD COUNT 4.69 10^6/uL (4.00-5.40); RHEUMATOID FACTOR QUANT < 3.5 IU/ML (<14); TOTAL IRON BINDING CAPACITY 271 UG/DL (250-425); WHITE BLOOD COUNT 5.7 10^3/uL (4.0-10.0)
[2023-09-13 19:22] LABS: ALBUMIN 4.2 G/DL (3.2-5.2); ALKALINE PHOSPHATASE 132 U/L (46-116); ALT/SGPT 24 U/L (7.0-40); AST/SGOT 18 U/L (<34); BILIRUBIN,TOTAL 0.5 MG/DL (0.3-1.2); BLOOD UREA NITROGEN 15 MG/DL (9-23); CALCIUM LEVEL 8.9 MG/DL (8.5-10.1); CARBON DIOXIDE LEVEL 24 MMOL/L (20-31); CHLORIDE LEVEL 108 MMOL/L (98-107); CHOLESTEROL LEVEL 188 MG/DL (<200); CHOLESTEROL RISK RATIO 4.78 (<5); CREATININE FOR GFR 0.94 MG/DL (0.55-1.30); GLOMERULAR FILTRATION RATE > 60.0 (>51); GLUCOSE, FASTING 226 MG/DL (60-100); HDL CHOLESTEROL 39.3 MG/DL (>40); IRON (FE) 72 UG/DL (50-170); LDL CHOLESTEROL 105.3 MG/DL (<100); MAGNESIUM LEVEL 1.8 MG/DL (1.8-2.4); NON-HDL-C 148.7 MG/DL; PERCENT SATURATION 26.6 % (13.2-45.0); POTASSIUM SERUM 4.2 MMOL/L (3.5-5.1); SODIUM LEVEL 138 MMOL/L (136-145); TOTAL PROTEIN 7.5 G/DL (5.7-8.2); TRIGLYCERIDES LEVEL 217 MG/DL (<150)
[2023-09-13 19:23] LABS: FREE THYROXINE INDEX 1.8 % (1.3-4.8); T UPTAKE 29.4 % (22.5-37.0)
[2023-09-13 19:26] LABS: ERYTHROCYTE SEDIMENTATION RATE 32 mm/hr (0-30)
== END ==
LOC: M WUC 11:19
PROVIDERS: ATTEND Registered Nurse
DX: E78.2 Mixed hyperlipidemia (principal); I10 Essential (primary) hypertension; G43.909 Migraine, unspecified, not intractable, without status migrainosus; R53.83 Other fatigue

== ENCOUNTER → 2023-09-13 | Outpatient (CLI) | payer OTHER | LOC: M WUC 11:21 | PROVIDERS: ATTEND Urology | DX: Z96.0 Presence of urogenital implants (principal) ==

== ENCOUNTER → 2023-12-29 | Outpatient (CLI) | payer OTHER ==
[~2023-12-29] MED LIST changes: +NAPR-1405 PO; -NAPR500T6 PO
[2023-12-29 17:27] LABS: BASO % 0.7 % (0.0-1.0); EOS # 0.1 10^3/uL (0.0-0.5); EOS % 1.6 % (0.0-3.0); HEMATOCRIT 44.1 % (36.0-47.0); HEMOGLOBIN 14.5 g/dl (12.0-15.5); LYMPH # 2.7 10^3/uL (1.5-5.0); LYMPH % 48.4 % (24.0-44.0); MEAN CORPUSCULAR HEMOGLOBIN 30.9 pg (27.0-33.0); MEAN CORPUSCULAR HGB CONC 32.9 g/dl (32.0-36.5); MONO # 0.4 10^3/uL (0.0-0.8); MONO % 6.8 % (2.0-8.0); NEUTROPHILS # 2.3 10^3/uL (1.5-8.5); NEUTROPHILS % 42.3 % (36.0-66.0); PLATELET COUNT, AUTOMATED 185 10^3/uL (150-450); RED BLOOD COUNT 4.69 10^6/uL (4.00-5.40); WHITE BLOOD COUNT 5.5 10^3/uL (4.0-10.0)
[2023-12-29 17:53] LABS: TOTAL 25(OH) VITAMIN D 17.9 NG/ML (20.0-100.0)
[2023-12-29 18:01] LABS: ALKALINE PHOSPHATASE 125 U/L (35-104); ALT/SGPT 24 U/L (7.0-40); AST/SGOT 19 U/L (<34); BILIRUBIN,TOTAL 0.3 MG/DL (0.3-1.2); BLOOD UREA NITROGEN 13 MG/DL (9-23); CARBON DIOXIDE LEVEL 26 MMOL/L (20-31); CHLORIDE LEVEL 105 MMOL/L (98-107); CHOLESTEROL LEVEL 191 MG/DL (<200); CHOLESTEROL RISK RATIO 4.18 (<5); CREATININE FOR GFR 0.67 MG/DL (0.55-1.30); GLOMERULAR FILTRATION RATE > 60.0 (>51); GLUCOSE, FASTING 278 MG/DL (60-100); HDL CHOLESTEROL 45.6 MG/DL (>40); LDL CHOLESTEROL 95.2 MG/DL (<100); NON-HDL-C 145.4 MG/DL; POTASSIUM SERUM 4.4 MMOL/L (3.5-5.1); SODIUM LEVEL 141 MMOL/L (136-145); TOTAL PROTEIN 7.2 G/DL (5.7-8.2); TRIGLYCERIDES LEVEL 251 MG/DL (<150)
== END ==
LOC: M WUC 11:35
PROVIDERS: ATTEND Registered Nurse
DX: E55.9 Vitamin D deficiency, unspecified (principal); E78.2 Mixed hyperlipidemia; E11.21 Type 2 diabetes mellitus with diabetic nephropathy

== ENCOUNTER → 2024-08-30 | Outpatient (CLI) | payer OTHER ==
[~2024-08-30] MED LIST changes: -FLOM0.4C39 PO; +MORP-138 PO; -MORP15TASA PO; +TAMS-18 PO
== END ==
LOC: M WHC 13:13
PROVIDERS: ATTEND Registered Nurse
DX: Z12.31 Encounter for screening mammogram for malignant neoplasm of breast (principal)